=== PATIENT | female | born 1975 | race Caucasian/White ===

== ENCOUNTER 2017-07-20 16:30 | Inpatient (IN) | payer OTHER ==
[2017-07-20] MEDS ORDERED: methylPREDNISolone SOD SUCCI 125 MG/2 ML VIAL IV STA (16:34)
[2017-07-20] MEDS ORDERED: IPRATROPIUM 0.5 MG/2.5 ML NEBU INHALATION STA (16:34)
[2017-07-20] MEDS ORDERED: SODIUM CHLORIDE 0.9% 500 ML IV STA (16:34)
[2017-07-20] MEDS ORDERED: SODIUM CHLORIDE 0.9% 1,000 ML IV STA (16:34)
[2017-07-20] MEDS ORDERED: ALBUTEROL NEBULIZED 2.5 MG/3 ML INHALATION STA (16:34)
[2017-07-20] MEDS ORDERED: ACETAMINOPHEN IV (For NPO) 1,000 MG in EMPTY BAG 1 BAG IVPB STA (16:47)
[2017-07-20] MEDS ORDERED: AZITHROMYCIN 500 MG in SODIUM CHLORIDE 0.9% 250 ML IVPB STA (16:47)
[2017-07-20 17:06] LABS: Basophils # (A) 0.1 k/uL (0-0.2); Basophils % (A) 1 %; Eosinophils # (A) 0.2 k/uL (0-0.7); Eosinophils % (A) 2 %; HCT 44.9 % (34.0-46.0); HGB 14.5 gm/dL (11.4-16.0); Lymphocytes % (A) 19 %; MCH 28.4 pg (25.0-35.0); MCHC 32.2 g/dL (31.0-37.0); Mean Platelet Volume 7.3; Monocytes # (A) 0.6 k/uL (0-1.0); Monocytes % (A) 6 %; Neutrophils # (A) 7.5 k/uL (1.3-7.7); Neutrophils % (A) 72 %; Platelet Count 298 k/uL (150-450); RBC 5.11 m/uL (3.80-5.40); RDW 14.6 % (11.5-15.5); WBC 10.5 k/uL (3.8-10.6)
[2017-07-20 17:14] LABS: Partial Thromboplastin Time 23.3 sec (22.0-30.0); Prothrombin Time 9.6 sec (9.0-12.0)
[2017-07-20 17:16] LABS: ALT 38 U/L (9-52); AST 38 U/L (14-36); Albumin 3.6 g/dL (3.5-5.0); Alkaline Phosphatase 117 U/L (38-126); Anion Gap 13 mmol/L; Blood Urea Nitrogen 6 mg/dL (7-17); Carbon Dioxide 24 mmol/L (22-30); Chloride 103 mmol/L (98-107); Glucose 153 mg/dL (74-99); Potassium 3.9 mmol/L (3.5-5.1); Sodium 140 mmol/L (137-145); Total Bilirubin 0.4 mg/dL (0.2-1.3); Total Protein 6.4 g/dL (6.3-8.2)
[2017-07-20 17:36] LABS: Creatine Kinase 60 U/L (30-135)
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
[2017-07-20 17:49] LABS: Creatine Kinase MB <0.2 ng/mL (0.0-2.4); Troponin I <0.012 ng/mL (0.000-0.034)
--- NOTE | 2017-07-20 18:04 | XR ---
EXAMINATION TYPE: XR chest 2V DATE OF EXAM: 07/20/2017 COMPARISON: 05/02/2017 HISTORY: Difficulty breathing TECHNIQUE: Frontal and lateral views of the chest are obtained. FINDINGS: There is coarsening of interstitial pulmonary markings. Heart is enlarged. There is mild p ulmonary vascular congestion. I see no pulmonary consolidation. Bony thorax appears intact. IMPRESSION: Mild cardiomegaly. There is new pulmonary congestion compared to old exam and suggestive of mild heart failure. No definite pulmonary consolidation.
[2017-07-20] MEDS ORDERED: PNEUMONIA PROTOCOL UTILIZED 1 EACH MISC PO PRN (18:41)
[2017-07-20] MEDS ORDERED: cefTRIAXone IN SWFI 1,000 MG/10 ML SYRINGE IVP STA (18:41)
[2017-07-20] MEDS ORDERED: FUROSEMIDE 10 MG/ML 4 ML VIAL IV SCH (18:45)
[2017-07-20] MEDS ORDERED: oxyCODONE-APAP 7.5-325MG 1 EACH TAB PO STA (19:00)
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
[2017-07-20] MEDS ORDERED: AZITHROMYCIN 500 MG TAB PO STA (20:00)
[2017-07-20 20:22] LABS: Appearance,Urine Clear (Clear); Bilirubin,Urine Negative (Negative); Blood,Urine Negative (Negative); Color,Urine Yellow; Glucose,Urine (UA) Negative (Negative); Ketones,Urine Negative (Negative); Leukocyte Esterase,Urine Negative (Negative); Protein,Urine Negative (Negative); Specific Gravity,Urine 1.008 (1.001-1.035); Urobilinogen,Urine <2.0 mg/dL (<2.0)
[2017-07-20] MEDS: IPRATROPIUM-ALBUTEROL 3 ML NEB INHALATION SCH (20:32)
[2017-07-20 21:13] LABS: Glucose,Whole Blood 265 mg/dL (75-99)
[2017-07-20] MEDS ORDERED: NALOXONE 0.4 MG/ML 1 ML VIAL IV PRN (21:28)
[2017-07-20] MEDS: QUEtiapine 200 MG TAB PO SCH (23:08)
[2017-07-20] MEDS: ATORVASTATIN 40 MG TAB PO SCH (23:08)
[2017-07-20] MEDS: MONTELUKAST 10 MG TAB PO SCH (23:09)
[2017-07-20] MEDS: DIVALPROEX ER 500 MG TAB.ER.24H PO SCH (23:09)
[2017-07-20] MEDS: HEPARIN SODIUM,PORCINE 5,000 UNIT/ML 1 ML VIAL SQ SCH (23:09)
[2017-07-20] MEDS: TOPIRAMATE 100 MG TAB PO SCH (23:09)
[2017-07-21] MEDS ORDERED: Potassium Replacement Protocol 1 EACH MISC MISCELLANE PRN (00:41)
[2017-07-21] MEDS ORDERED: IPRATROPIUM-ALBUTEROL 3 ML NEB INHALATION PRN (00:42)
[2017-07-21] MEDS ORDERED: POTASSIUM CHLORIDE ER 20 MEQ TAB.ER PO SCH (01:00)
[2017-07-21 05:46] LABS: Basophils % (A) 0 %; Eosinophils % (A) 0 %; HCT 42.4 % (34.0-46.0); HGB 13.3 gm/dL (11.4-16.0); Hypochromasia Slight; Lymphocytes # (A) 1.2 k/uL (1.0-4.8); Lymphocytes % (A) 13 %; MCH 28.2 pg (25.0-35.0); MCHC 31.4 g/dL (31.0-37.0); MCV 89.8 fL (80.0-100.0); Mean Platelet Volume 7.4; Monocytes # (A) 0.4 k/uL (0-1.0); Monocytes % (A) 5 %; Neutrophils # (A) 8.1 k/uL (1.3-7.7); Neutrophils % (A) 82 %; Platelet Count 275 k/uL (150-450); RBC 4.72 m/uL (3.80-5.40); RDW 14.5 % (11.5-15.5); WBC 9.9 k/uL (3.8-10.6)
[2017-07-21] MEDS: IPRATROPIUM-ALBUTEROL 3 ML NEB INHALATION SCH ×4 (05:54→20:18)
[2017-07-21] MEDS: SYMBICORT 160-4.5 MCG INHALER INHALATION SCH ×2 (05:54→20:18)
[2017-07-21 06:01] LABS: Blood Urea Nitrogen 10 mg/dL (7-17); Calcium 8.5 mg/dL (8.4-10.2); Carbon Dioxide 26 mmol/L (22-30); Glucose 300 mg/dL (74-99); Potassium 4.6 mmol/L (3.5-5.1); Sodium 140 mmol/L (137-145)
[2017-07-21 06:14] LABS: Anion Gap 8 mmol/L; Chloride 106 mmol/L (98-107)
[2017-07-21 06:29] LABS: Glucose,Whole Blood 297 mg/dL (75-99)
[2017-07-21] MEDS: INSULIN ASPART 100 UNIT/ML 1 ML 10 ML VIAL SQ SCH ×4 (06:51→21:16)
[2017-07-21] MEDS ORDERED: PANTOPRAZOLE 40 MG TABLET PO SCH (07:30)
[2017-07-21] MEDS: HEPARIN SODIUM,PORCINE 5,000 UNIT/ML 1 ML VIAL SQ SCH ×3 (08:18→23:27)
[2017-07-21] MEDS: DULoxetine HCL 60 MG CAPSULE.DR PO SCH (08:19)
[2017-07-21] MEDS: PANTOPRAZOLE 40 MG TABLET PO SCH ×2 (08:19→20:11)
[2017-07-21] MEDS: PREGABALIN 75 MG CAP PO SCH ×2 (08:20→21:16)
[2017-07-21] MEDS ORDERED: TOPIRAMATE 100 MG TAB PO SCH (09:00)
[2017-07-21] MEDS ORDERED: FUROSEMIDE 10 MG/ML 4 ML VIAL IV SCH (09:00)
[2017-07-21] MEDS: DIVALPROEX ER 500 MG TAB.ER.24H PO SCH ×3 (09:18→21:47)
[2017-07-21] MEDS: TOPIRAMATE 100 MG TAB PO SCH ×2 (09:19→20:12)
--- NOTE | 2017-07-21 10:21 | XR ---
EXAMINATION TYPE: XR chest 2V DATE OF EXAM: 07/21/2017 COMPARISON: Prior chest x-ray 07/20/2017 HISTORY: Pneumonia TECHNIQUE: Frontal and lateral views of the chest are obtained. FINDINGS: Some increased attenuation is questioned at the right lung base. No pneumothorax or pleura l effusion. There are overlying cardiac leads. Postop change noted in the cervical spine. Suspect imp rovement in the central vascularity, heart size. IMPRESSION: Improvement in volume status, aeration. Possible right lower lobe pneumonia.
[2017-07-21 10:34] VITALS: BMI 54.0
[2017-07-21] MEDS: oxyCODONE-APAP 5-325MG 1 EACH TAB PO PRN ×2 (11:15→20:12)
--- NOTE | 2017-07-21 11:54 | ECHOF ---
Referral Reason:Heart Failure MEASUREMENTS -------- HEIGHT: 160.0 cm WEIGHT: 138.3 kg BP: IVSd: 1.1 cm (0.6 - 1.1) LVIDd: 5.1 cm (3.9 - 5.3) LVPWd: 1.0 cm (0.6 - 1.1) IVSs: 1.3 cm LVIDs: 3.1 cm LVPWs: 1.5 cm LA Diam: 3.5 cm (2.7 - 3.8) Ao Diam: 3.2 cm (2.0 - 3.7) AV Cusp: 2.0 cm (1.5 - 2.6) LA Diam: 3.7 cm (2.7 - 3.8) MV EXCURSION: 16.399 mm (> 18.000) MV EF SLOPE: 109 mm/s (70 - 150) EPSS: 0.6 cm MV E Marques: 0.72 m/s MV DecT: 235 ms MV A Marques: 0.77 m/s MV E/A Ratio: 0.94 RAP: 5.00 mmHg RVSP: 14.41 mmHg FINDINGS -------- Sinus rhythm. Morbid Obesity LV size, wall thickness and systolic function are normal, with an EF greater than 55%. The left shaniqua tricular size is normal. The right ventricle is normal in size. Normal LA size by volume 22+/-6 ml/m2. The right atrial size is normal. 5.0mg OF Lumason UTLIZED: 2 OR MORE WALL SEGMENTS NOT VISUALIZED. The aortic valve is trileaflet, and appears structurally normal. No aortic stenosis or regurgitation. Mild mitral regurgitation is present. Mild tricuspid regurgitation present. There is no evidence of pulmonary hypertension. The right v entricular systolic pressure, as measured by Doppler, is 14.41mmHg. The pulmonic valve was not well visualized. The aortic root size is normal. There is no pericardial effusion. CONCLUSIONS -------- 1. Morbid Obesity 2. LV size, wall thickness and systolic function are normal, with an EF greater than 55%. 3. The left ventricular size is normal. 4. 5.0mg OF Lumason UTLIZED: 2 OR MORE WALL SEGMENTS NOT VISUALIZED. 5. The aortic valve is trileaflet, and appears structurally normal. No aortic stenosis or regurgitati on. 6. Mild mitral regurgitation is present. 7. Mild tricuspid regurgitation present. 8. There is no evidence of pulmonary hypertension. 9. The right ventricular systolic pressure, as measured by Doppler, is 14.41mmHg. 10. The pulmonic valve was not well visualized. 11. The aortic root size is normal. 12. There is no pericardial effusion. ROVING SIZER: Mana Geronimo RDCS
[2017-07-21] MEDS ORDERED: AZITHROMYCIN 500 MG TAB PO SCH (12:00)
[2017-07-21] MEDS ORDERED: cefTRIAXone IN SWFI 1,000 MG/10 ML SYRINGE IVP SCH (12:00)
[2017-07-21 12:18] LABS: Glucose,Whole Blood 251 mg/dL (75-99)
--- NOTE | 2017-07-21 13:23 | P.PN ---
Subjective Progress Note Date: 07/21/17 The patient does not feel significantly better today, still short of breath denies any chest pain, no acute events overnight patient afebrile Objective - Vital Signs Vital signs: Vital Signs Temp 97.0 F L 07/21/17 08:00 Pulse 92 07/21/17 11:37 Resp 18 07/21/17 08:00 BP 101/53 07/21/17 08:00 Pulse Ox 96 07/21/17 08:00 Intake & Output 07/20/17 07/21/17 07/21/17 18:59 06:59 18:59 Intake Total 800 237 Balance 800 237 Weight 141.067 kg 138.4 kg 138.4 kg Intake: Amount of Fluid Infused ( 600 ml) Oral 200 237 Other: Voiding Method Toilet # Voids 1 - Exam Constitutional: No acute distress, conversant, pleasant Eyes: Anicteric sclerae, moist conjunctiva, no lid-lag, PERRLA ENMT: NC/AT,Oropharynx clear, no erythema, exudates Neck:Supple, FROM, no masses, or JVD, No carotid bruits; No thyromegaly Lungs: Coarse with some expiratory wheezes, Clear to percussion, Normal respiratory effort, no accessory muscle use Cardiovascular: Heart regular in rate and rhythm, No murmurs, gallops, or rubs no peripheral edema Abdominal: Soft Nontender, nom distended, no guarding, no rebound or rigidity, Normoactive bowel sounds No hepatomegaly, No splenomegaly, No palpable mass No abdominal wall hernia noted Skin: Normal temperature, tone, texture, turgor, No induration No subcutaneous nodules, No rash, lesions, No ulcers Extremities:No digital cyanosis No clubbing, Pedal pulses intact and symmetrical Radial pulses intact and symmetrical Normal gait and station, No calf tenderness Psychiatric: Alert and oriented to person, place and time, Appropriate affect Intact judgement Neuro: Muscles Strength 5/5 in all 4 extremities, Sensation to light touch grossly present throughout, Cranial nerves II-XII grossly intact. No focal sensory deficits - Labs CBC & Chem 7: 07/21/17 05:26 07/21/17 05:26 Labs: Abnormal Lab Results - Last 24 Hours (Table) 07/20/17 07/20/17 07/21/17 Range/Units 16:50 21:12 05:26 Neutrophils # 8.1 H (1.3-7.7) k/uL BUN 6 L (7-17) mg/dL Glucose 153 H (74-99) mg/dL POC Glucose (mg/dL) 265 H (75-99) mg/dL AST 38 H (14-36) U/L 07/21/17 07/21/17 07/21/17 Range/Units 05:26 06:06 12:10 Neutrophils # (1.3-7.7) k/uL BUN (7-17) mg/dL Glucose 300 H (74-99) mg/dL POC Glucose (mg/dL) 297 H 251 H (75-99) mg/dL AST (14-36) U/L Microbiology - Last 24 Hours (Table) 07/20/17 20:00 Urine Culture - Preliminary Urine,Clean Catch Assessment and Plan (1) Acute respiratory failure with hypoxia Narrative/Plan: * Multifactorial etiology secondary to COPD exacerbation triggered by a community acquired pneumonia in the right lower lobe * Chest x-ray suggesting right lower lobe pneumonia, patient with good oxygen saturations on 3 L nasal cannula * Continue with breathing treatments and antibiotics * BNP within normal range, and echocardiogram suggestive of any CHF, shows normal preserved ejection fraction Current Visit: Yes Status: Acute Code(s): J96.01 - ACUTE RESPIRATORY FAILURE WITH HYPOXIA SNOMED Code(s): 53253114 (2) Acute exacerbation of chronic obstructive airways disease Narrative/Plan: * Triggered by a right lower lobe pneumonia. * We'll continue systemic steroids with prednisone, patient was initiated on Solu-Medrol from the ER * Continue with when necessary as needed breathing treatments Current Visit: Yes Status: Acute Code(s): J44.1 - CHRONIC OBSTRUCTIVE PULMONARY DISEASE W (ACUTE) EXACERBATION SNOMED Code(s): 983526369 (3) Community acquired pneumonia Narrative/Plan: * We'll switch patient to oral Levaquin for antibiotic coverage Current Visit: Yes Status: Acute Code(s): J18.9 - PNEUMONIA, UNSPECIFIED ORGANISM SNOMED Code(s): 421206107 (4) Sepsis Narrative/Plan: * Secondary to pneumonia patient afebrile without leukocytosis Current Visit: Yes Status: Acute Code(s): A41.9 - SEPSIS, UNSPECIFIED ORGANISM SNOMED Code(s): 87071912 (5) Type 2 diabetes mellitus Narrative/Plan: * Blood sugars elevated a patient does have a recent diagnosis of type 2 diabetes A1c is pending * Continue with correctional scale coverage as a patient is also on steroids Current Visit: Yes Status: Acute Code(s): E11.9 - TYPE 2 DIABETES MELLITUS WITHOUT COMPLICATIONS SNOMED Code(s): 70843797
[2017-07-21 14:03] LABS: Hemoglobin A1C 7.9 % (4.0-6.0)
[2017-07-21] MEDS: predniSONE 20 MG TAB PO SCH (14:30)
[2017-07-21] MEDS: LEVOFLOXACIN 750 MG TAB PO SCH (14:30)
[2017-07-21 17:04] LABS: Glucose,Whole Blood 208 mg/dL (75-99)
[2017-07-21] MEDS: ATORVASTATIN 40 MG TAB PO SCH (20:11)
[2017-07-21] MEDS: MONTELUKAST 10 MG TAB PO SCH (20:11)
[2017-07-21] MEDS: QUEtiapine 200 MG TAB PO SCH (20:12)
[2017-07-21 20:48] LABS: Glucose,Whole Blood 299 mg/dL (75-99)
[2017-07-21] MEDS ORDERED: QUEtiapine 200 MG TAB PO SCH (21:00)
[2017-07-21] MEDS ORDERED: ATORVASTATIN 40 MG TAB PO SCH (21:00)
[2017-07-21] MEDS ORDERED: MONTELUKAST 10 MG TAB PO SCH (21:00)
[2017-07-22 06:02] LABS: Basophils % (A) 0 %; Eosinophils % (A) 0 %; HCT 40.4 % (34.0-46.0); HGB 12.6 gm/dL (11.4-16.0); Hypochromasia Slight; Lymphocytes # (A) 1.4 k/uL (1.0-4.8); Lymphocytes % (A) 18 %; MCH 28.2 pg (25.0-35.0); MCHC 31.1 g/dL (31.0-37.0); MCV 90.4 fL (80.0-100.0); Mean Platelet Volume 7.3; Monocytes # (A) 0.4 k/uL (0-1.0); Monocytes % (A) 5 %; Neutrophils # (A) 6.1 k/uL (1.3-7.7); Neutrophils % (A) 75 %; Platelet Count 279 k/uL (150-450); RBC 4.47 m/uL (3.80-5.40); RDW 14.6 % (11.5-15.5); WBC 8.1 k/uL (3.8-10.6)
[2017-07-22 06:13] LABS: Glucose,Whole Blood 215 mg/dL (75-99)
[2017-07-22 06:21] LABS: Anion Gap 9 mmol/L; Blood Urea Nitrogen 9 mg/dL (7-17); Calcium 8.7 mg/dL (8.4-10.2); Carbon Dioxide 24 mmol/L (22-30); Chloride 110 mmol/L (98-107); Glucose 239 mg/dL (74-99); Potassium 4.7 mmol/L (3.5-5.1); Sodium 143 mmol/L (137-145)
[2017-07-22] MEDS: INSULIN ASPART 100 UNIT/ML 1 ML 10 ML VIAL SQ SCH ×4 (06:59→21:08)
[2017-07-22] MEDS: IPRATROPIUM-ALBUTEROL 3 ML NEB INHALATION SCH ×4 (07:05→19:34)
[2017-07-22] MEDS: SYMBICORT 160-4.5 MCG INHALER INHALATION SCH ×2 (07:05→19:34)
[2017-07-22] MEDS: DIVALPROEX ER 500 MG TAB.ER.24H PO SCH ×3 (08:38→21:08)
[2017-07-22] MEDS: HEPARIN SODIUM,PORCINE 5,000 UNIT/ML 1 ML VIAL SQ SCH ×3 (08:38→22:46)
[2017-07-22] MEDS: TOPIRAMATE 100 MG TAB PO SCH ×2 (08:39→20:09)
[2017-07-22] MEDS: DULoxetine HCL 60 MG CAPSULE.DR PO SCH (08:39)
[2017-07-22] MEDS: predniSONE 20 MG TAB PO SCH (08:39)
[2017-07-22] MEDS: PANTOPRAZOLE 40 MG TABLET PO SCH ×2 (08:39→20:09)
[2017-07-22] MEDS: PREGABALIN 75 MG CAP PO SCH ×2 (08:45→20:09)
[2017-07-22] MEDS: DOCUSATE 100 MG CAP PO PRN (08:45)
[2017-07-22] MEDS: oxyCODONE-APAP 5-325MG 1 EACH TAB PO PRN ×3 (08:46→22:45)
--- NOTE | 2017-07-22 10:50 | P.PN ---
Subjective The patient does not feel significantly better today, still short of breath denies any chest pain, no acute events overnight patient afebrile Objective - Vital Signs Vital signs: Vital Signs Temp 97 F L 07/22/17 08:33 Pulse 88 07/22/17 09:12 Resp 16 07/22/17 08:33 BP 119/75 07/22/17 08:33 Pulse Ox 94 L 07/22/17 08:33 Intake & Output 07/21/17 07/22/17 07/22/17 18:59 06:59 18:59 Intake Total 1211 480 120 Balance 1211 480 120 Weight 138.4 kg Intake: Oral 1211 480 120 Other: Voiding Method Toilet # Voids 3 1 - Exam Constitutional: No acute distress, conversant, pleasant Eyes: Anicteric sclerae, moist conjunctiva, no lid-lag, PERRLA ENMT: NC/AT,Oropharynx clear, no erythema, exudates Neck:Supple, FROM, no masses, or JVD, No carotid bruits; No thyromegaly Lungs: Coarse with some expiratory wheezes, Clear to percussion, Normal respiratory effort, no accessory muscle use Cardiovascular: Heart regular in rate and rhythm, No murmurs, gallops, or rubs no peripheral edema Abdominal: Soft Nontender, nom distended, no guarding, no rebound or rigidity, Normoactive bowel sounds No hepatomegaly, No splenomegaly, No palpable mass No abdominal wall hernia noted Skin: Normal temperature, tone, texture, turgor, No induration No subcutaneous nodules, No rash, lesions, No ulcers Extremities:No digital cyanosis No clubbing, Pedal pulses intact and symmetrical Radial pulses intact and symmetrical Normal gait and station, No calf tenderness Psychiatric: Alert and oriented to person, place and time, Appropriate affect Intact judgement Neuro: Muscles Strength 5/5 in all 4 extremities, Sensation to light touch grossly present throughout, Cranial nerves II-XII grossly intact. No focal sensory deficits - Labs CBC & Chem 7: 07/22/17 05:28 07/22/17 05:28 Labs: Abnormal Lab Results - Last 24 Hours (Table) 07/20/17 07/21/17 07/21/17 Range/Units 22:39 12:10 16:52 Chloride (98-107) mmol/L Creatinine (0.52-1.04) mg/dL Glucose (74-99) mg/dL POC Glucose (mg/dL) 251 H 208 H (75-99) mg/dL Hemoglobin A1c 7.9 H (4.0-6.0) % 07/21/17 07/22/17 07/22/17 Range/Units 20:43 05:28 06:12 Chloride 110 H (98-107) mmol/L Creatinine 0.50 L (0.52-1.04) mg/dL Glucose 239 H (74-99) mg/dL POC Glucose (mg/dL) 299 H 215 H (75-99) mg/dL Hemoglobin A1c (4.0-6.0) % Microbiology - Last 24 Hours (Table) 07/20/17 20:00 Urine Culture - Final Urine,Clean Catch 07/20/17 16:50 Blood Culture - Preliminary Blood No Growth after 24 hours Assessment and Plan (1) Acute respiratory failure with hypoxia Narrative/Plan: * Multifactorial etiology secondary to COPD exacerbation triggered by a community acquired pneumonia in the right lower lobe * Chest x-ray suggesting right lower lobe pneumonia, patient with good oxygen saturations on 3 L nasal cannula * Continue with breathing treatments and antibiotics * BNP within normal range, and echocardiogram suggestive of any CHF, shows normal preserved ejection fraction Current Visit: Yes Status: Acute Code(s): J96.01 - ACUTE RESPIRATORY FAILURE WITH HYPOXIA SNOMED Code(s): 70626826 (2) Acute exacerbation of chronic obstructive airways disease Narrative/Plan: * Triggered by a right lower lobe pneumonia. * Patient not significantly clinically improved today continue with current therapy * Continue the patient on steroids with prednisone 60 mg by mouth daily, continue with scheduled and when necessary bronchodilator breathing treatments Current Visit: Yes Status: Acute Code(s): J44.1 - CHRONIC OBSTRUCTIVE PULMONARY DISEASE W (ACUTE) EXACERBATION SNOMED Code(s): 541919420 (3) Community acquired pneumonia Narrative/Plan: * We'll switch patient to oral Levaquin for antibiotic coverage Current Visit: Yes Status: Acute Code(s): J18.9 - PNEUMONIA, UNSPECIFIED ORGANISM SNOMED Code(s): 891848277 (4) Sepsis Narrative/Plan: * Secondary to pneumonia patient afebrile without leukocytosis Current Visit: Yes Status: Acute Code(s): A41.9 - SEPSIS, UNSPECIFIED ORGANISM SNOMED Code(s): 09697952 (5) Type 2 diabetes mellitus Narrative/Plan: * Blood sugars elevated a patient does have a recent diagnosis of type 2 diabetes A1c is 7.9 * Continue with correctional scale coverage as a patient is also on steroids Current Visit: Yes Status: Acute Code(s): E11.9 - TYPE 2 DIABETES MELLITUS WITHOUT COMPLICATIONS SNOMED Code(s): 61994520
[2017-07-22] MEDS: LEVOFLOXACIN 750 MG TAB PO SCH (11:23)
[2017-07-22 11:44] LABS: Glucose,Whole Blood 238 mg/dL (75-99)
[2017-07-22 16:45] LABS: Glucose,Whole Blood 267 mg/dL (75-99)
[2017-07-22] MEDS: IBUPROFEN 800 MG TAB PO PRN (17:19)
[2017-07-22] MEDS: ATORVASTATIN 40 MG TAB PO SCH (20:08)
[2017-07-22] MEDS: MONTELUKAST 10 MG TAB PO SCH (20:08)
[2017-07-22] MEDS: QUEtiapine 200 MG TAB PO SCH (20:09)
[2017-07-22 20:55] LABS: Glucose,Whole Blood 322 mg/dL (75-99)
[2017-07-23 06:16] LABS: Glucose,Whole Blood 192 mg/dL (75-99)
[2017-07-23] MEDS: INSULIN ASPART 100 UNIT/ML 1 ML 10 ML VIAL SQ SCH ×4 (06:34→21:15)
[2017-07-23] MEDS: IPRATROPIUM-ALBUTEROL 3 ML NEB INHALATION SCH ×4 (07:24→19:21)
[2017-07-23] MEDS: SYMBICORT 160-4.5 MCG INHALER INHALATION SCH (07:24)
[2017-07-23] MEDS: HEPARIN SODIUM,PORCINE 5,000 UNIT/ML 1 ML VIAL SQ SCH ×3 (07:51→22:54)
[2017-07-23] MEDS: predniSONE 20 MG TAB PO SCH (07:51)
[2017-07-23] MEDS: PANTOPRAZOLE 40 MG TABLET PO SCH ×2 (07:51→20:24)
[2017-07-23] MEDS: DULoxetine HCL 60 MG CAPSULE.DR PO SCH (07:52)
[2017-07-23] MEDS: DIVALPROEX ER 500 MG TAB.ER.24H PO SCH ×3 (07:52→21:14)
[2017-07-23] MEDS: TOPIRAMATE 100 MG TAB PO SCH ×2 (07:52→20:25)
[2017-07-23] MEDS: oxyCODONE-APAP 5-325MG 1 EACH TAB PO PRN ×3 (07:52→21:14)
[2017-07-23] MEDS: PREGABALIN 75 MG CAP PO SCH ×2 (07:54→20:24)
[2017-07-23] MEDS: LEVOFLOXACIN 750 MG TAB PO SCH (12:11)
[2017-07-23] MEDS: IBUPROFEN 800 MG TAB PO PRN ×2 (12:15→17:10)
[2017-07-23 12:46] LABS: Glucose,Whole Blood 242 mg/dL (75-99)
--- NOTE | 2017-07-23 14:28 | P.PN ---
Subjective Progress Note Date: 07/23/17 The patient does not feel significantly better today, still short of breath denies any chest pain, no acute events overnight patient afebrile Objective - Vital Signs Vital signs: Vital Signs Temp 97.1 F L 07/23/17 12:00 Pulse 83 07/23/17 12:00 Resp 18 07/23/17 12:00 BP 136/78 07/23/17 12:00 Pulse Ox 96 07/23/17 12:00 Intake & Output 07/22/17 07/23/17 07/23/17 18:59 06:59 18:59 Intake Total 560 300 Balance 560 300 Weight 140 kg Intake: Oral 560 300 Other: Voiding Method Toilet Toilet # Voids 1 2 - Exam Constitutional: No acute distress, conversant, pleasant Eyes: Anicteric sclerae, moist conjunctiva, no lid-lag, PERRLA ENMT: NC/AT,Oropharynx clear, no erythema, exudates Neck:Supple, FROM, no masses, or JVD, No carotid bruits; No thyromegaly Lungs: Coarse with some expiratory wheezes, Clear to percussion, Normal respiratory effort, no accessory muscle use Cardiovascular: Heart regular in rate and rhythm, No murmurs, gallops, or rubs no peripheral edema Abdominal: Soft Nontender, nom distended, no guarding, no rebound or rigidity, Normoactive bowel sounds No hepatomegaly, No splenomegaly, No palpable mass No abdominal wall hernia noted Skin: Normal temperature, tone, texture, turgor, No induration No subcutaneous nodules, No rash, lesions, No ulcers Extremities:No digital cyanosis No clubbing, Pedal pulses intact and symmetrical Radial pulses intact and symmetrical Normal gait and station, No calf tenderness Psychiatric: Alert and oriented to person, place and time, Appropriate affect Intact judgement Neuro: Muscles Strength 5/5 in all 4 extremities, Sensation to light touch grossly present throughout, Cranial nerves II-XII grossly intact. No focal sensory deficits - Labs CBC & Chem 7: 07/22/17 05:28 07/22/17 05:28 Labs: Abnormal Lab Results - Last 24 Hours (Table) 07/22/17 07/22/17 07/23/17 Range/Units 16:44 20:53 06:12 POC Glucose (mg/dL) 267 H 322 H 192 H (75-99) mg/dL 07/23/17 Range/Units 11:52 POC Glucose (mg/dL) 242 H (75-99) mg/dL Microbiology - Last 24 Hours (Table) 07/20/17 16:50 Blood Culture - Preliminary Blood No Growth after 48 hours Assessment and Plan (1) Acute respiratory failure with hypoxia Narrative/Plan: * Multifactorial etiology secondary to COPD exacerbation triggered by a community acquired pneumonia in the right lower lobe * Chest x-ray suggesting right lower lobe pneumonia, patient with good oxygen saturations on 3 L nasal cannula * Continue with breathing treatments and antibiotics * BNP within normal range, and echocardiogram suggestive of any CHF, shows normal preserved ejection fraction Current Visit: Yes Status: Acute Code(s): J96.01 - ACUTE RESPIRATORY FAILURE WITH HYPOXIA SNOMED Code(s): 49583272 (2) Acute exacerbation of chronic obstructive airways disease Narrative/Plan: * Triggered by a right lower lobe pneumonia. * Patient not significantly clinically improved today continue with current therapy but will add formoterol and budesonide inhaled * Continue the patient on steroids with prednisone 60 mg by mouth daily, continue with scheduled and when necessary bronchodilator breathing treatments * The patient is not improved by tomorrow, consult pulmonary for further recommendations Current Visit: Yes Status: Acute Code(s): J44.1 - CHRONIC OBSTRUCTIVE PULMONARY DISEASE W (ACUTE) EXACERBATION SNOMED Code(s): 036572044 (3) Community acquired pneumonia Narrative/Plan: * We'll switch patient to oral Levaquin for antibiotic coverage Current Visit: Yes Status: Acute Code(s): J18.9 - PNEUMONIA, UNSPECIFIED ORGANISM SNOMED Code(s): 556036215 (4) Sepsis Narrative/Plan: * Secondary to pneumonia patient afebrile without leukocytosis Current Visit: Yes Status: Resolved Code(s): A41.9 - SEPSIS, UNSPECIFIED ORGANISM SNOMED Code(s): 62327732 (5) Type 2 diabetes mellitus Narrative/Plan: * patient does have a recent diagnosis of type 2 diabetes A1c is 7.9 * Blood sugars elevated we'll initiate long-acting coverage as well with Levemir 12 units daily at bedtime * Continue with correctional scale coverage as a patient is also on steroids Current Visit: Yes Status: Acute Code(s): E11.9 - TYPE 2 DIABETES MELLITUS WITHOUT COMPLICATIONS SNOMED Code(s): 76385619
[2017-07-23 17:36] LABS: Glucose,Whole Blood 296 mg/dL (75-99)
[2017-07-23] MEDS: FORMOTEROL FUMARATE 20 MCG/2 ML NEBU INHALATION SCH (19:21)
[2017-07-23] MEDS: BUDESONIDE 1 MG/2 ML NEBU INHALATION SCH (19:21)
[2017-07-23] MEDS: QUEtiapine 200 MG TAB PO SCH (20:24)
[2017-07-23] MEDS: MONTELUKAST 10 MG TAB PO SCH (20:24)
[2017-07-23] MEDS: ATORVASTATIN 40 MG TAB PO SCH (20:24)
[2017-07-23] MEDS: DOCUSATE 100 MG CAP PO PRN (20:28)
[2017-07-23] MEDS: INSULIN DETEMIR 100 UNIT/ML 10 ML VIAL SQ SCH (21:15)
[2017-07-23 21:19] LABS: Glucose,Whole Blood 256 mg/dL (75-99)
[2017-07-24] MEDS: oxyCODONE-APAP 5-325MG 1 EACH TAB PO PRN ×5 (01:37→20:45)
[2017-07-24] MEDS: IPRATROPIUM-ALBUTEROL 3 ML NEB INHALATION SCH ×4 (06:04→19:59)
[2017-07-24 06:35] LABS: Glucose,Whole Blood 132 mg/dL (75-99)
[2017-07-24] MEDS: INSULIN ASPART 100 UNIT/ML 1 ML 10 ML VIAL SQ SCH ×4 (06:45→21:56)
[2017-07-24] MEDS: FORMOTEROL FUMARATE 20 MCG/2 ML NEBU INHALATION SCH ×2 (07:49→20:16)
[2017-07-24] MEDS: BUDESONIDE 1 MG/2 ML NEBU INHALATION SCH ×2 (07:49→19:59)
[2017-07-24] MEDS: DIVALPROEX ER 500 MG TAB.ER.24H PO SCH ×3 (08:11→20:44)
[2017-07-24] MEDS: HEPARIN SODIUM,PORCINE 5,000 UNIT/ML 1 ML VIAL SQ SCH ×3 (08:11→23:01)
[2017-07-24] MEDS: DULoxetine HCL 60 MG CAPSULE.DR PO SCH (08:12)
[2017-07-24] MEDS: PANTOPRAZOLE 40 MG TABLET PO SCH ×2 (08:12→20:43)
[2017-07-24] MEDS: TOPIRAMATE 100 MG TAB PO SCH ×2 (08:12→20:44)
[2017-07-24] MEDS: predniSONE 20 MG TAB PO SCH (08:12)
[2017-07-24] MEDS: LEVOFLOXACIN 750 MG TAB PO SCH (08:12)
[2017-07-24] MEDS: PREGABALIN 75 MG CAP PO SCH ×2 (08:24→20:43)
[2017-07-24 11:45] LABS: Glucose,Whole Blood 260 mg/dL (75-99)
[2017-07-24] MEDS: IBUPROFEN 800 MG TAB PO PRN ×3 (11:54→20:46)
[2017-07-24 16:40] LABS: Glucose,Whole Blood 238 mg/dL (75-99)
[2017-07-24] MEDS: QUEtiapine 200 MG TAB PO SCH (20:43)
[2017-07-24] MEDS: ATORVASTATIN 40 MG TAB PO SCH (20:43)
[2017-07-24 20:59] LABS: Glucose,Whole Blood 155 mg/dL (75-99)
[2017-07-24] MEDS: INSULIN DETEMIR 100 UNIT/ML 10 ML VIAL SQ SCH (21:56)
[2017-07-24] MEDS: MONTELUKAST 10 MG TAB PO SCH (21:57)
[2017-07-25 06:03] LABS: Glucose,Whole Blood 129 mg/dL (75-99)
[2017-07-25] MEDS: INSULIN ASPART 100 UNIT/ML 1 ML 10 ML VIAL SQ SCH ×4 (06:05→21:46)
[2017-07-25] MEDS: BUDESONIDE 1 MG/2 ML NEBU INHALATION SCH ×2 (08:08→21:45)
[2017-07-25] MEDS: IPRATROPIUM-ALBUTEROL 3 ML NEB INHALATION SCH ×4 (08:08→21:45)
[2017-07-25] MEDS: FORMOTEROL FUMARATE 20 MCG/2 ML NEBU INHALATION SCH ×2 (08:08→21:45)
[2017-07-25] MEDS: HEPARIN SODIUM,PORCINE 5,000 UNIT/ML 1 ML VIAL SQ SCH ×3 (09:03→23:14)
[2017-07-25] MEDS: LEVOFLOXACIN 750 MG TAB PO SCH (09:03)
[2017-07-25] MEDS: DIVALPROEX ER 500 MG TAB.ER.24H PO SCH ×3 (09:04→21:46)
[2017-07-25] MEDS: PANTOPRAZOLE 40 MG TABLET PO SCH ×2 (09:04→21:46)
[2017-07-25] MEDS: predniSONE 20 MG TAB PO SCH (09:04)
[2017-07-25] MEDS: TOPIRAMATE 100 MG TAB PO SCH ×2 (09:04→21:46)
[2017-07-25] MEDS: DULoxetine HCL 60 MG CAPSULE.DR PO SCH (09:05)
[2017-07-25] MEDS: oxyCODONE-APAP 5-325MG 1 EACH TAB PO PRN ×3 (10:19→21:51)
[2017-07-25] MEDS: PREGABALIN 75 MG CAP PO SCH ×2 (10:19→21:50)
[2017-07-25 11:41] LABS: Glucose,Whole Blood 202 mg/dL (75-99)
--- NOTE | 2017-07-25 11:49 | P.PN ---
Subjective Progress Note Date: 07/25/17 The patient does not feel significantly better today, still short of breath denies any chest pain, no acute events overnight patient afebrile, reports being pretty dyspneic on exertion with wheezes. Patient has not been very ambulatory Objective - Vital Signs Vital signs: Vital Signs Temp 97.8 F 07/25/17 08:00 Pulse 102 H 07/25/17 08:29 Resp 18 07/25/17 08:00 BP 123/67 07/25/17 08:00 Pulse Ox 95 07/25/17 08:00 Intake & Output 07/24/17 07/25/17 07/25/17 18:59 06:59 18:59 Intake Total 676 480 240 Balance 676 480 240 Weight 140.5 kg Intake: Oral 676 480 240 Other: Voiding Method Toilet Toilet # Voids 1 1 # Bowel Movements 1 - Exam Constitutional: No acute distress, conversant, pleasant Eyes: Anicteric sclerae, moist conjunctiva, no lid-lag, PERRLA ENMT: NC/AT,Oropharynx clear, no erythema, exudates Neck:Supple, FROM, no masses, or JVD, No carotid bruits; No thyromegaly Lungs: Coarse with some expiratory wheezes that seem to be improving daily Clear to percussion, Normal respiratory effort, no accessory muscle use Cardiovascular: Heart regular in rate and rhythm, No murmurs, gallops, or rubs no peripheral edema Abdominal: Soft Nontender, nom distended, no guarding, no rebound or rigidity, Normoactive bowel sounds No hepatomegaly, No splenomegaly, No palpable mass No abdominal wall hernia noted Skin: Normal temperature, tone, texture, turgor, No induration No subcutaneous nodules, No rash, lesions, No ulcers Extremities:No digital cyanosis No clubbing, Pedal pulses intact and symmetrical Radial pulses intact and symmetrical Normal gait and station, No calf tenderness Psychiatric: Alert and oriented to person, place and time, Appropriate affect Intact judgement Neuro: Muscles Strength 5/5 in all 4 extremities, Sensation to light touch grossly present throughout, Cranial nerves II-XII grossly intact. No focal sensory deficits - Labs CBC & Chem 7: 07/22/17 05:28 07/22/17 05:28 Labs: Abnormal Lab Results - Last 24 Hours (Table) 07/24/17 07/24/1707/25/18 Range/Units 16:39 20:56 06:01 POC Glucose (mg/dL) 238 H 155 H 129 H (75-99) mg/dL 07/25/17 Range/Units 11:32 POC Glucose (mg/dL) 202 H (75-99) mg/dL Microbiology - Last 24 Hours (Table) 07/20/17 16:50 Blood Culture - Preliminary Blood No Growth after 96 hours Assessment and Plan (1) Acute respiratory failure with hypoxia Narrative/Plan: * Multifactorial etiology secondary to COPD exacerbation triggered by a community acquired pneumonia in the right lower lobe * Chest x-ray suggesting right lower lobe pneumonia, patient with good oxygen saturations on 3 L nasal cannula * Continue with breathing treatments and antibiotics * BNP within normal range, and echocardiogram suggestive of any CHF, shows normal preserved ejection fraction Current Visit: Yes Status: Acute Code(s): J96.01 - ACUTE RESPIRATORY FAILURE WITH HYPOXIA SNOMED Code(s): 45023541 (2) Acute exacerbation of chronic obstructive airways disease Narrative/Plan: * Triggered by a right lower lobe pneumonia. * Patient not significantly clinically improved today continue with current therapy but will add formoterol and budesonide inhaled * Continue the patient on steroids with prednisone 60 mg by mouth daily, continue with scheduled and when necessary bronchodilator breathing treatments * The patient is not improved by tomorrow, consult pulmonary for further recommendations Current Visit: Yes Status: Acute Code(s): J44.1 - CHRONIC OBSTRUCTIVE PULMONARY DISEASE W (ACUTE) EXACERBATION SNOMED Code(s): 884019009 (3) Community acquired pneumonia Narrative/Plan: * We'll switch patient to oral Levaquin for antibiotic coverage Current Visit: Yes Status: Acute Code(s): J18.9 - PNEUMONIA, UNSPECIFIED ORGANISM SNOMED Code(s): 415842307 (4) Sepsis Narrative/Plan: * Secondary to pneumonia patient afebrile without leukocytosis Current Visit: Yes Status: Resolved Code(s): A41.9 - SEPSIS, UNSPECIFIED ORGANISM SNOMED Code(s): 96839201 (5) Type 2 diabetes mellitus Narrative/Plan: * patient does have a recent diagnosis of type 2 diabetes A1c is 7.9 * Blood sugars improved on long-acting coverage as well with Levemir 12 units daily at bedtime * Continue with correctional scale coverage as a patient is also on steroids Current Visit: Yes Status: Acute Code(s): E11.9 - TYPE 2 DIABETES MELLITUS WITHOUT COMPLICATIONS SNOMED Code(s): 55905648 Plan: We'll consult physical therapy to get the patient ambulatory. Despite stating she's not improving clinically her wheezes are better and her oxygen requirements are less we'll have a home O2 evaluation. Likely approaching discharge in the next 24-48 hours
[2017-07-25] MEDS ORDERED: ALPRAZolam 1 MG TAB PO STA (13:29)
[2017-07-25 16:43] LABS: Glucose,Whole Blood 261 mg/dL (75-99)
[2017-07-25 20:05] LABS: Glucose,Whole Blood 201 mg/dL (75-99)
[2017-07-25] MEDS: ATORVASTATIN 40 MG TAB PO SCH (21:46)
[2017-07-25] MEDS: QUEtiapine 200 MG TAB PO SCH (21:46)
[2017-07-25] MEDS: INSULIN DETEMIR 100 UNIT/ML 10 ML VIAL SQ SCH (21:47)
[2017-07-25] MEDS: IBUPROFEN 800 MG TAB PO PRN (21:51)
[2017-07-25] MEDS: MONTELUKAST 10 MG TAB PO SCH (22:16)
[2017-07-26 07:07] LABS: Glucose,Whole Blood 134 mg/dL (75-99)
[2017-07-26] MEDS: TOPIRAMATE 100 MG TAB PO SCH (07:37)
[2017-07-26] MEDS: HEPARIN SODIUM,PORCINE 5,000 UNIT/ML 1 ML VIAL SQ SCH (07:37)
[2017-07-26] MEDS: DIVALPROEX ER 500 MG TAB.ER.24H PO SCH (07:37)
[2017-07-26] MEDS: DULoxetine HCL 60 MG CAPSULE.DR PO SCH (07:37)
[2017-07-26] MEDS: PANTOPRAZOLE 40 MG TABLET PO SCH (07:37)
[2017-07-26] MEDS: predniSONE 20 MG TAB PO SCH (07:37)
[2017-07-26] MEDS: PREGABALIN 75 MG CAP PO SCH (07:37)
[2017-07-26] MEDS: INSULIN ASPART 100 UNIT/ML 1 ML 10 ML VIAL SQ SCH ×2 (07:37→12:43)
[2017-07-26] MEDS: oxyCODONE-APAP 5-325MG 1 EACH TAB PO PRN (07:42)
[2017-07-26] MEDS: IPRATROPIUM-ALBUTEROL 3 ML NEB INHALATION SCH ×2 (08:01→12:10)
[2017-07-26] MEDS: BUDESONIDE 1 MG/2 ML NEBU INHALATION SCH (08:01)
[2017-07-26] MEDS: FORMOTEROL FUMARATE 20 MCG/2 ML NEBU INHALATION SCH (08:01)
[2017-07-26 08:34] VITALS: BP 97/55; TEMP 97.8
[2017-07-26] MEDS: LEVOFLOXACIN 750 MG TAB PO SCH (10:05)
[2017-07-26] MEDS: IBUPROFEN 800 MG TAB PO PRN (10:05)
[2017-07-26 11:20] LABS: Glucose,Whole Blood 206 mg/dL (75-99)
[2017-07-26 11:41] VITALS: RESP 22
[2017-07-26 12:14] VITALS: PULSE 84
--- NOTE | 2017-07-26 12:38 | P.DS ---
Providers Date of admission: 07/20/17 18:46 Expected date of discharge: 07/26/17 Attending physician: Hiral Suarez DO Primary care physician: Ayanna Smith - Discharge Diagnosis(es) (1) Acute respiratory failure with hypoxia Current Visit: Yes Status: Acute (2) Acute exacerbation of chronic obstructive airways disease Current Visit: Yes Status: Acute (3) Community acquired pneumonia Current Visit: Yes Status: Acute (4) Sepsis Current Visit: Yes Status: Resolved (5) Type 2 diabetes mellitus Current Visit: Yes Status: Acute Hospital Course: The patient is a morbidly obese 42-year-old female that presented with worsening shortness of breath and was found to be in acute respiratory failure with hypoxia secondary to a community-acquired pneumonia superimposed on underlying acute COPD exacerbation and sepsis she was placed on supplemental oxygen and started on empiric IV antibiotics with Rocephin and azithromycin along with scheduled and when necessary bronchodilator DuoNeb breathing treatments along with inhaled formoterol and budesonide she was started on systemic steroids with Solu-Medrol, blood cultures were ordered but were negative. Chest x-ray did suggest her right lower lobe pneumonia. It was thought the patient might of had congestive heart failure However her 2-D echocardiogram showed ejection fraction greater than 55%. As a patient gradually improved her antibiotic regimen was changed to oral Levaquin and she was started on prednisone. The patient reports to being a fairly newly diagnosed type 2 diabetic and she did have elevated blood sugars during hospitalization attributed to ongoing steroid use for treatment of her COPD exacerbation. She was started on correctional scale coverage along with some long-acting basal insulin Levemir at 12 units daily at bedtime, Her hemoglobin A1c was 7.9. Respiratory status gradually improved, she had a home 02 evaluation but was unable to qualify she had pretty good saturations with ambulation, she was subsequently discharged home with new prescriptions for Levaquin and a prednisone taper. The patient was instructed to make a follow- up appointment with her primary care physician in the next 3-5 days. This discharge process took approximately 35 minutes Constitutional: No acute distress, conversant, pleasant Eyes: Anicteric sclerae, moist conjunctiva, no lid-lag, PERRLA ENMT: NC/AT,Oropharynx clear, no erythema, exudates Neck:Supple, FROM, no masses, or JVD, No carotid bruits; No thyromegaly Lungs: Faint wheezes much improved from previous, Clear to percussion, Normal respiratory effort, no accessory muscle use Cardiovascular: Heart regular in rate and rhythm, No murmurs, gallops, or rubs no peripheral edema Abdominal: Soft Nontender, nom distended, no guarding, no rebound or rigidity, Normoactive bowel sounds No hepatomegaly, No splenomegaly, No palpable mass No abdominal wall hernia noted Skin: Normal temperature, tone, texture, turgor, No induration No subcutaneous nodules, No rash, lesions, No ulcers Extremities:No digital cyanosis No clubbing, Pedal pulses intact and symmetrical Radial pulses intact and symmetrical Normal gait and station, No calf tenderness Psychiatric: Alert and oriented to person, place and time, Appropriate affect Intact judgement Neuro: Muscles Strength 5/5 in all 4 extremities, Sensation to light touch grossly present throughout, Cranial nerves II-XII grossly intact. No focal sensory deficits Patient Condition at Discharge: Fair Plan - Discharge Summary Discharge Rx Participant: No New Discharge Prescriptions: New Levofloxacin [Levaquin] 750 mg PO DAILY@1200 #3 tab predniSONE 60 mg PO DAILY #0 tab Continue Docusate [Colace] 100 mg PO HS PRN PRN Reason: Constipation Albuterol Inhaler [Ventolin Hfa Inhaler] 2 puff INHALATION RT-Q6H PRN PRN Reason: Bronchodilation Omeprazole [PriLOSEC] 20 mg PO BID Montelukast Sodium [Singulair] 10 mg PO HS DULoxetine HCL [Cymbalta] 60 mg PO DAILY Butalb/APAP/Caff 50-325-40Mg [Fioricet 50-325-40] 1 tab PO Q8H PRN PRN Reason: Headache QUEtiapine [SEROquel] 200 mg PO HS Ibuprofen [Motrin] 800 mg PO TID PRN PRN Reason: Pain Topiramate 100 mg PO BID oxyCODONE-APAP 7.5-325MG [Percocet 7.5-325 mg] 1 tab PO BID PRN PRN Reason: Pain metFORMIN HCL [Glucophage] 1,000 mg PO BID Pregabalin [Lyrica] 150 mg PO BID Ergocalciferol (Vitamin D2) [Vitamin D2] 50,000 unit PO SIMON Budesonide/Formoterol Fumarate [Symbicort 160-4.5 Mcg Inhaler] 2 puff INHALATION RT-BID Atorvastatin [Lipitor] 40 mg PO HS Ipratropium-Albuterol Nebulize [Duoneb 0.5 mg-3 mg/3 ml Soln] 3 ml INHALATION RT-Q4H PRN PRN Reason: Shortness Of Breath Divalproex ER [Depakote ER] 500 mg PO TID Discharge Medication List Albuterol Inhaler [Ventolin Hfa Inhaler] 2 puff INHALATION RT-Q6H PRN 12/06/13 [ History] Docusate [Colace] 100 mg PO HS PRN 12/06/13 [History] Omeprazole [PriLOSEC] 20 mg PO BID 12/06/13 [History] Montelukast Sodium [Singulair] 10 mg PO HS 03/20/14 [History] DULoxetine HCL [Cymbalta] 60 mg PO DAILY 06/09/15 [History] Butalb/APAP/Caff 50-325-40Mg [Fioricet 50-325-40] 1 tab PO Q8H PRN 07/31/15 [ History] QUEtiapine [SEROquel] 200 mg PO HS 09/22/15 [History] Ibuprofen [Motrin] 800 mg PO TID PRN 10/07/15 [History] Topiramate 100 mg PO BID 10/07/15 [History] Atorvastatin [Lipitor] 40 mg PO HS 07/20/17 [History] Budesonide/Formoterol Fumarate [Symbicort 160-4.5 Mcg Inhaler] 2 puff INHALATION RT-BID 07/20/17 [History] Divalproex ER [Depakote ER] 500 mg PO TID 07/20/17 [History] Ergocalciferol (Vitamin D2) [Vitamin D2] 50,000 unit PO SIMON 07/20/17 [History] Ipratropium-Albuterol Nebulize [Duoneb 0.5 mg-3 mg/3 ml Soln] 3 ml INHALATION RT -Q4H PRN 07/20/17 [History] Pregabalin [Lyrica] 150 mg PO BID 07/20/17 [History] metFORMIN HCL [Glucophage] 1,000 mg PO BID 07/20/17 [History] oxyCODONE-APAP 7.5-325MG [Percocet 7.5-325 mg] 1 tab PO BID PRN 07/20/17 [ History] Levofloxacin [Levaquin] 750 mg PO DAILY@1200 #3 tab 07/26/17 [Rx] predniSONE 60 mg PO DAILY #0 tab 07/26/17 [Rx] Follow up Appointment(s)/Referral(s): Ayanna Smith MD [Primary Care Provider] - 08/01/17 10:30 am Patient Instructions/Handouts: Levofloxacin (By mouth), How to Stop Smoking (DC ), COPD (Chronic Obstructive Pulmonary Disease) (DC), Pneumonia (DC) Discharge Disposition: HOME SELF-CARE
--- NOTE | 2017-07-26 16:09 | P.PN ---
Subjective Progress Note Date: 07/24/17 The patient does not feel significantly better today, still short of breath denies any chest pain, no acute events overnight patient afebrile, reports being pretty dyspneic on exertion with wheezes. Patient has not been very ambulatory Objective - Vital Signs Vital signs: Vital Signs Temp 97.8 F 07/26/17 07:00 Pulse 84 07/26/17 12:25 Resp 22 07/26/17 11:40 BP 97/55 07/26/17 07:00 Pulse Ox 90 L 07/26/17 11:40 Intake & Output 07/25/17 07/26/17 07/26/17 18:59 06:59 18:59 Intake Total 480 540 600 Balance 480 540 600 Weight 98 kg Intake: Oral 480 540 600 Other: Voiding Method Toilet Toilet Toilet # Voids 1 1 2 - Exam Constitutional: No acute distress, conversant, pleasant Eyes: Anicteric sclerae, moist conjunctiva, no lid-lag, PERRLA ENMT: NC/AT,Oropharynx clear, no erythema, exudates Neck:Supple, FROM, no masses, or JVD, No carotid bruits; No thyromegaly Lungs: Coarse with some expiratory wheezes that seem to be improving daily Clear to percussion, Normal respiratory effort, no accessory muscle use Cardiovascular: Heart regular in rate and rhythm, No murmurs, gallops, or rubs no peripheral edema Abdominal: Soft Nontender, nom distended, no guarding, no rebound or rigidity, Normoactive bowel sounds No hepatomegaly, No splenomegaly, No palpable mass No abdominal wall hernia noted Skin: Normal temperature, tone, texture, turgor, No induration No subcutaneous nodules, No rash, lesions, No ulcers Extremities:No digital cyanosis No clubbing, Pedal pulses intact and symmetrical Radial pulses intact and symmetrical Normal gait and station, No calf tenderness Psychiatric: Alert and oriented to person, place and time, Appropriate affect Intact judgement Neuro: Muscles Strength 5/5 in all 4 extremities, Sensation to light touch grossly present throughout, Cranial nerves II-XII grossly intact. No focal sensory deficits - Labs CBC & Chem 7: 07/22/17 05:28 07/22/17 05:28 Labs: Abnormal Lab Results - Last 24 Hours (Table) 07/25/17 07/25/17 07/26/17 Range/Units 16:38 20:03 07:03 POC Glucose (mg/dL) 261 H 201 H 134 H (75-99) mg/dL 07/26/17 Range/Units 11:14 POC Glucose (mg/dL) 206 H (75-99) mg/dL Microbiology - Last 24 Hours (Table) 07/20/17 16:50 Blood Culture - Preliminary Blood No Growth after 120 hours Assessment and Plan (1) Acute respiratory failure with hypoxia Narrative/Plan: * Multifactorial etiology secondary to COPD exacerbation triggered by a community acquired pneumonia in the right lower lobe * Chest x-ray suggesting right lower lobe pneumonia, patient with good oxygen saturations on 3 L nasal cannula * Continue with breathing treatments and antibiotics * BNP within normal range, and echocardiogram suggestive of any CHF, shows normal preserved ejection fraction Status: Acute Code(s): J96.01 - ACUTE RESPIRATORY FAILURE WITH HYPOXIA SNOMED Code(s): 16006776 (2) Acute exacerbation of chronic obstructive airways disease Narrative/Plan: * Triggered by a right lower lobe pneumonia. * Patient not significantly clinically improved today continue with current therapy but will add formoterol and budesonide inhaled * Continue the patient on steroids with prednisone 60 mg by mouth daily, continue with scheduled and when necessary bronchodilator breathing treatments * The patient is not improved by tomorrow, consult pulmonary for further recommendations Status: Acute Code(s): J44.1 - CHRONIC OBSTRUCTIVE PULMONARY DISEASE W (ACUTE ) EXACERBATION SNOMED Code(s): 860726495 (3) Community acquired pneumonia Narrative/Plan: * We'll switch patient to oral Levaquin for antibiotic coverage Status: Acute Code(s): J18.9 - PNEUMONIA, UNSPECIFIED ORGANISM SNOMED Code(s ): 583947581 (4) Sepsis Narrative/Plan: * Secondary to pneumonia patient afebrile without leukocytosis Status: Resolved Code(s): A41.9 - SEPSIS, UNSPECIFIED ORGANISM SNOMED Code(s ): 23616074 (5) Type 2 diabetes mellitus Narrative/Plan: * patient does have a recent diagnosis of type 2 diabetes A1c is 7.9 * Blood sugars improved on long-acting coverage as well with Levemir 12 units daily at bedtime * Continue with correctional scale coverage as a patient is also on steroids Status: Acute Code(s): E11.9 - TYPE 2 DIABETES MELLITUS WITHOUT COMPLICATIONS SNOMED Code(s): 38629505
== END 2017-07-26 13:51 | disposition home or self-care (01) | DRG 871 ==
LOC: EC 16:30 → 6SEL 18:46 → 5MS5E 07-25 18:10
PROVIDERS: ADMIT Internal Medicine; ATTEND Internal Medicine
DX: A41.9 Sepsis, unspecified organism (principal); J18.9 Pneumonia, unspecified organism; J96.01 Acute respiratory failure with hypoxia; I50.32 Chronic diastolic (congestive) heart failure; J44.0 Chronic obstructive pulmonary disease with (acute) lower respiratory infection; J44.1 Chronic obstructive pulmonary disease with (acute) exacerbation; K76.0 Fatty (change of) liver, not elsewhere classified; E11.42 Type 2 diabetes mellitus with diabetic polyneuropathy; E66.01 Morbid (severe) obesity due to excess calories; E78.5 Hyperlipidemia, unspecified; F17.210 Nicotine dependence, cigarettes, uncomplicated; F20.9 Schizophrenia, unspecified; N28.1 Cyst of kidney, acquired; F32.9 Major depressive disorder, single episode, unspecified; F43.10 Post-traumatic stress disorder, unspecified; G40.909 Epilepsy, unspecified, not intractable, without status epilepticus; G47.33 Obstructive sleep apnea (adult) (pediatric); T38.0X5A Adverse effect of glucocorticoids and synthetic analogues, initial encounter; K21.9 Gastro-esophageal reflux disease without esophagitis; M79.7 Fibromyalgia; G89.29 Other chronic pain; K44.9 Diaphragmatic hernia without obstruction or gangrene; M19.90 Unspecified osteoarthritis, unspecified site; N83.209 Unspecified ovarian cyst, unspecified side; M54.9 Dorsalgia, unspecified; K22.70 Barrett's esophagus without dysplasia; F41.9 Anxiety disorder, unspecified; Z68.38 Body mass index [BMI] 38.0-38.9, adult; Z79.51 Long term (current) use of inhaled steroids; Z79.84 Long term (current) use of oral hypoglycemic drugs; Z88.8 Allergy status to other drugs, medicaments and biological substances; Z98.1 Arthrodesis status; Z90.710 Acquired absence of both cervix and uterus; Z85.41 Personal history of malignant neoplasm of cervix uteri; Z79.899 Other long term (current) drug therapy; Z82.49 Family history of ischemic heart disease and other diseases of the circulatory system
CPT/HCPCS: 36415; 71046; 80048; 80053; 81003; 82550; 82553; 83036; 83735; 83880; 84484; 85025; 85610; 85730; 87040; 87086; 87502; 93005; 93306; 94640; 94760; 96361; 96365; 96366; 96375; 99285

== ENCOUNTER 2017-08-18 05:21 | Observation (INO) | payer OTHER ==
[2017-08-18] MEDS ORDERED: NITROGLYCERIN OINT 1 INCH/GM PACKET TOPICAL STA (05:30)
[2017-08-18] MEDS ORDERED: LORazepam 2 MG/ML INJ IV STA (05:30)
[2017-08-18] MEDS ORDERED: ASPIRIN 81 MG PO STA (05:30)
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
[2017-08-18 05:42] LABS: Basophils % (A) 0 %; Eosinophils # (A) 0.2 k/uL (0-0.7); Eosinophils % (A) 1 %; HCT 43.5 % (34.0-46.0); HGB 14.2 gm/dL (11.4-16.0); Lymphocytes # (A) 3.4 k/uL (1.0-4.8); Lymphocytes % (A) 28 %; MCH 27.7 pg (25.0-35.0); MCHC 32.6 g/dL (31.0-37.0); Mean Platelet Volume 7.6; Monocytes # (A) 0.6 k/uL (0-1.0); Monocytes % (A) 5 %; Neutrophils # (A) 7.9 k/uL (1.3-7.7); Neutrophils % (A) 65 %; Platelet Count 339 k/uL (150-450); RBC 5.12 m/uL (3.80-5.40); RDW 15.1 % (11.5-15.5); WBC 12.2 k/uL (3.8-10.6)
[2017-08-18 05:52] LABS: INR 0.9 (<1.2); Partial Thromboplastin Time 22.7 sec (22.0-30.0); Prothrombin Time 9.4 sec (9.0-12.0)
[2017-08-18 05:56] LABS: ALT 19 U/L (9-52); AST 25 U/L (14-36); Albumin 3.7 g/dL (3.5-5.0); Alkaline Phosphatase 93 U/L (38-126); Anion Gap 18 mmol/L; Blood Urea Nitrogen 8 mg/dL (7-17); Calcium 9.8 mg/dL (8.4-10.2); Carbon Dioxide 18 mmol/L (22-30); Chloride 108 mmol/L (98-107); Glucose 172 mg/dL (74-99); Magnesium 2.1 mg/dL (1.6-2.3); Sodium 144 mmol/L (137-145); Total Bilirubin 0.4 mg/dL (0.2-1.3); Total Protein 6.7 g/dL (6.3-8.2)
[2017-08-18 05:58] LABS: Creatine Kinase 42 U/L (30-135)
[2017-08-18 06:02] LABS: Valproic Acid (Depakene) 52.8 ug/mL
--- NOTE | 2017-08-18 06:08 | XR ---
EXAM: XR Chest, 2 Views CLINICAL HISTORY: Chest pain TECHNIQUE: Frontal and lateral views of the chest. COMPARISON: Chest x-ray dated 07/21/2017 FINDINGS: Lungs: Unremarkable. No consolidation. Pleural space: Unremarkable. No pneumothorax. Heart: Unremarkable. No cardiomegaly. Mediastinum: Unremarkable. Bones/joints: Fusion hardware noted within the cervical spine. IMPRESSION: No acute findings.
[2017-08-18 06:11] LABS: Creatine Kinase MB <0.2 ng/mL (0.0-2.4); Troponin I <0.012 ng/mL (0.000-0.034)
[2017-08-18] MEDS ORDERED: NITROGLYCERIN SL TABS 0.4 MG TAB SUBLINGUAL PRN (07:12)
[2017-08-18 12:54] LABS: Creatine Kinase 36 U/L (30-135)
[2017-08-18] MEDS: NITROGLYCERIN OINT 1 INCH/GM PACKET TOPICAL SCH ×2 (13:04→18:19)
[2017-08-18 13:06] LABS: Creatine Kinase MB <0.2 ng/mL (0.0-2.4); Troponin I <0.012 ng/mL (0.000-0.034)
[2017-08-18] MEDS ORDERED: DOBUTamine DRIP for NUC MED 250 MG in DEXTROSE/WATER 1 250ML.BAG IV ONE (15:02)
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
[2017-08-18] MEDS ORDERED: IBUPROFEN 400 MG TAB PO PRN (15:20)
[2017-08-18] MEDS ORDERED: IPRATROPIUM-ALBUTEROL 3 ML NEB INHALATION PRN (15:20)
[2017-08-18] MEDS ORDERED: DOCUSATE 100 MG CAP PO PRN (15:20)
[2017-08-18] MEDS: IPRATROPIUM-ALBUTEROL 3 ML NEB INHALATION SCH ×2 (16:55→19:59)
[2017-08-18 18:11] LABS: Creatine Kinase 33 U/L (30-135)
[2017-08-18] MEDS: DIVALPROEX ER 500 MG TAB.ER.24H PO SCH ×2 (18:19→20:44)
[2017-08-18 18:21] LABS: Glucose,Whole Blood 166 mg/dL (75-99)
[2017-08-18] MEDS: oxyCODONE-APAP 7.5-325MG 1 EACH TAB PO PRN (18:21)
[2017-08-18 18:24] LABS: Creatine Kinase MB <0.2 ng/mL (0.0-2.4); Troponin I <0.012 ng/mL (0.000-0.034)
[2017-08-18] MEDS ORDERED: ALBUTEROL INHALER 60 PUFF/8 GM INHALER INHALATION PRN (18:47)
--- NOTE | 2017-08-18 19:36 | HP ---
HISTORY AND PHYSICAL DATE OF SERVICE: 08/18/2017 CHIEF COMPLAINT: Chest pain. HISTORY OF PRESENT ILLNESS: This 42-year-old woman with a past medical history of asthma, diabetes mellitus, fibromyalgia, GERD, hypertension, hyperlipidemia, obesity, sleep apnea, history of pseudoseizures, being followed by Dr. Ayanna Smith in the outpatient setting, was complaining of chest pain. The patient apparently presented to [facility] with complaints of pseudoseizures, but subsequently the patient had chest pain in the anterior part of the chest without much radiation or other symptoms. The patient was admitted for further evaluation and treatment. The patient reports significant stress at this time. There is no history of any fever, rigor or chills. PAST MEDICAL HISTORY: 1. Asthma. 2. Pseudoseizure. 3. Diabetes mellitus. 4. Fibromyalgia. 5. GERD. 6. Hypertension. 7. History of pneumonia. 8. History of cholecystectomy. HOME MEDICATIONS: 1. Percocet 1 tablet p.o. b.i.d. p.r.n. 2. Glucophage 1000 mg p.o. b.i.d. 3. Topamax 100 mg p.o. b.i.d. 4. Seroquel XR 200 mg p.o. at bedtime. 5. Lyrica 150 mg p.o. b.i.d. 6. Prilosec 20 mg p.o. b.i.d. 7. Singulair 10 mg p.o. at bedtime. 8. DuoNeb q.4 p.r.n. 9. Motrin 800 mg t.i.d. p.r.n. 10.Vitamin D2 50,000 p.o. Tuesday. 11.Colace 100 mg p.o. at bedtime p.r.n. 12.Depakote ER 500 mg p.o. t.i.d. 13.Cymbalta 60 mg p.o. daily. 14.Symbicort 160/4.5 two puffs b.i.d. 15.Lipitor 40 mg at bedtime. 16.Ventolin HFA 2 puffs q.6 p.r.n. ALLERGIES: MULTIPLE ALLERGIES: 1. KETORALAC. 2. NADOLOL. 3. ADHESIVES. 4. KLONOPIN. 5. BENTYL. 6. NICOTINE. FAMILY HISTORY: History of CHF, diabetes mellitus, type 2, DJD, renal disease, broken heart syndrome, anemia. SOCIAL HISTORY: History of smoking. No history of alcohol intake. REVIEW OF SYSTEMS: ENT: No diminished hearing. No diminished vision. CARDIOVASCULAR SYSTEM: As mentioned earlier. RESPIRATORY SYSTEM: As mentioned earlier. GI: No nausea, vomiting. : No dysuria or retention. NERVOUS SYSTEM: No numbness, weakness. ALLERGY/IMMUNOLOGY: No asthma, hayfever. MUSCULOSKELETAL: As mentioned earlier. HEMATOLOGY/ONCOLOGY: No history of anemia. ENDOCRINE: History of diabetes mellitus. CONSTITUTIONAL: As mentioned earlier. DERMATOLOGY: Negative. RHEUMATOLOGY: Negative. PSYCHIATRY: As mentioned earlier. PHYSICAL EXAMINATION: Patient is alert, oriented x3. Pulse 70, blood pressure 108/74, respiration 18, temperature 98.3, pulse ox 94% on room air. HEENT: Conjunctivae normal. Oral mucosa moist. NECK: No jugular venous distention. No carotid bruit. No lymph node enlargement. CARDIOVASCULAR SYSTEM: S1, S2 muffled. No S3. No S4. RESPIRATORY SYSTEM: Breath sounds diminished at the bases. A few scattered rhonchi. No crackles. ABDOMEN: Soft, nontender. No mass palpable. LEGS: No edema. No swelling. NERVOUS SYSTEM: Higher functions as mentioned earlier. Moves all 4 limbs. No focal motor or sensory deficit. LYMPHATICS: No lymph node palpable in neck, axillae or groin. SKIN: No ulcer, rash, bleeding. LABS: WBC 12.2, hemoglobin 14.2, sodium 140, potassium 4, glucose 172. Valproic acid 52.8. ASSESSMENT: 1. Chest pain, possible unstable angina, possibly musculoskeletal. 2. History of pseudoseizures. 3. Asthma. 4. Diabetes mellitus. 5. Fibromyalgia. 6. Gastroesophageal reflux disease. 7. Hyperlipidemia. 8. Hypertension. 9. History of pneumonia. 10.Sleep apnea. 11.History of obesity with body mass index of 53.4. 12.Chronic back pain, degenerative joint disease. 13.Cholecystectomy. 14.History of degenerative joint disease. 15.Continued ongoing nicotine dependence. 16.Bipolar depression, anxiety, post-traumatic stress disorder. 17.Schizophrenia. RECOMMENDATIONS AND DISCUSSION: In this 42-year-old woman who presented with multiple complex medical issues, we will monitor the patient closely, continue the current medications, continue with symptomatic treatment. Rule out myocardial infarction. Unstable angina protocol. Otherwise, cardiology consultation. Possible stress test. Guarded prognosis because of multiple complex medical issues. Further recommendations to follow. See orders for further details. A copy of this dictation is being forwarded to Dr. Ayanna Smith, who is the primary physician. MMODL / IJN: [id number] /
[2017-08-18] MEDS: SYMBICORT 160-4.5 MCG INHALER INHALATION SCH (19:59)
[2017-08-18 20:18] LABS: Glucose,Whole Blood 222 mg/dL (75-99)
[2017-08-18] MEDS: QUEtiapine 100 MG TAB PO SCH (20:44)
[2017-08-18] MEDS: PREGABALIN 75 MG CAP PO SCH (20:44)
[2017-08-18] MEDS: TOPIRAMATE 100 MG TAB PO SCH (20:44)
[2017-08-18] MEDS: metFORMIN 500 MG TAB PO SCH (20:44)
[2017-08-18] MEDS: SODIUM CHLORIDE 0.9% 1,000 ML IV SCH (20:54)
[2017-08-18] MEDS ORDERED: ATORVASTATIN 40 MG TAB PO SCH (21:00)
[2017-08-18] MEDS ORDERED: MONTELUKAST 10 MG TAB PO SCH (21:00)
[2017-08-19] MEDS: NITROGLYCERIN OINT 1 INCH/GM PACKET TOPICAL SCH ×3 (00:01→12:31)
[2017-08-19 07:00] LABS: Glucose,Whole Blood 122 mg/dL (75-99)
[2017-08-19] MEDS ORDERED: PANTOPRAZOLE 40 MG TABLET PO SCH (07:30)
[2017-08-19 07:43] LABS: Basophils % (A) 1 %; Eosinophils # (A) 0.1 k/uL (0-0.7); Eosinophils % (A) 1 %; HCT 39.8 % (34.0-46.0); HGB 13.2 gm/dL (11.4-16.0); Lymphocytes # (A) 3.1 k/uL (1.0-4.8); Lymphocytes % (A) 39 %; MCH 28.9 pg (25.0-35.0); MCHC 33.1 g/dL (31.0-37.0); MCV 87.3 fL (80.0-100.0); Mean Platelet Volume 7.1; Monocytes # (A) 0.4 k/uL (0-1.0); Monocytes % (A) 5 %; Neutrophils # (A) 4.1 k/uL (1.3-7.7); Neutrophils % (A) 52 %; Platelet Count 315 k/uL (150-450); RBC 4.56 m/uL (3.80-5.40); RDW 15.2 % (11.5-15.5); WBC 7.9 k/uL (3.8-10.6)
[2017-08-19 08:00] LABS: Anion Gap 13 mmol/L; Blood Urea Nitrogen 8 mg/dL (7-17); Calcium 8.9 mg/dL (8.4-10.2); Carbon Dioxide 22 mmol/L (22-30); Chloride 110 mmol/L (98-107); Cholesterol 115 mg/dL (<200); Glucose 123 mg/dL (74-99); HDL Cholesterol 22 mg/dL (40-60); Sodium 145 mmol/L (137-145)
[2017-08-19 08:11] LABS: Triglycerides 546 mg/dL (<150)
[2017-08-19] MEDS: IPRATROPIUM-ALBUTEROL 3 ML NEB INHALATION SCH ×2 (08:18→11:42)
[2017-08-19] MEDS: SYMBICORT 160-4.5 MCG INHALER INHALATION SCH (08:18)
[2017-08-19 08:57] VITALS: RESP 16
[2017-08-19] MEDS ORDERED: ASPIRIN 325 MG TAB PO SCH (09:00)
[2017-08-19] MEDS ORDERED: DULoxetine HCL 60 MG CAPSULE.DR PO SCH (09:00)
[2017-08-19] MEDS: SODIUM CHLORIDE 0.9% 1,000 ML IV SCH (09:30)
[2017-08-19] MEDS: oxyCODONE-APAP 7.5-325MG 1 EACH TAB PO PRN (10:03)
[2017-08-19 12:12] VITALS: BP 119/77; PULSE 91; TEMP 97.8
--- NOTE | 2017-08-19 12:17 | P.PN ---
Subjective Progress Note Date: 08/19/17 Mrs. Oliveira is a pleasant 42-year-old female past medical history significant for diabetes mellitus, seizure disorder, dyslipidemia, sleep apnea, firbomyalgia, anxiety, bipolar, schizophrenia, borderline personality disorder chronic tobacco abuse. She denies history of CAD. We've been asked to see her in consultation for complaints of chest pain. She states she had multiple seizures last night while at home. She called EMS to bring her to be evaluated for the seizure and she started having chest pain in the ambulance. She states the pain was located in the midsternal region and radiated underneath the left breast. She denies associated shortness of breath, palpitations, nausea, vomiting or diaphoresis she does however state she was mildly dizzy although she is dizzy every time she has a seizure she states. She is unsure how many seizures she had loss of consciousness at all. She states her last seizure prior to last night was on Tuesday. EKG on arrival reveals sinus mechanism with no acute ST or T-wave abnormalities. Chest x-ray is negative for an acute cardiopulmonary process. Laboratory data reviewed, WBC 12.2, hemoglobin 14.2, potassium 4.0, magnesium 2.1, creatinine 0.6, cardiac enzymes negative 2. Current cardiac medications include atorvastatin 40 mg daily. She had an echocardiogram performed earlier this month which revealed preserved left ventricular systolic function with ejection fraction 55% and no evidence of valvular heart disease. 08/19/2017 Pt is seen and examined this morning. Cardiac enzymes have come back negative x3. Blood pressure 101/51 heart rate 76. Telemetry tracings have been unremarkable. Repeat laboratory data this morning reveals hemoglobin 13.2, platelets 215, potassium 4.0, creatinine 0.64, HDL 22, triglycerides 546 and LDL was unable to be calculated secondary to hypertriglyceridemia. Objective - Vital Signs Vital signs: Vital Signs Temp 97.8 F 08/19/17 12:00 Pulse 91 08/19/17 12:00 Resp 16 08/19/17 12:00 BP 119/77 08/19/17 12:00 Pulse Ox 95 08/19/17 12:00 Intake & Output 08/18/17 08/19/17 08/19/17 18:59 06:59 18:59 Intake Total 240 Balance 240 Weight 136.8 kg Intake: Oral 240 Other: # Voids 1 1 - Exam GENERAL: Well-appearing, well-nourished and in no acute distress. Morbidly obese. NECK: Supple without JVD or thyromegaly. LUNGS: Breath sounds clear to auscultation bilaterally. Respiration equal and unlabored. No wheezes, rales or rhonchi. HEART: Regular rate and rhythm without murmurs, rubs or gallops. S1 and S2 heard. EXTREMITIES: Normal range of motion, no edema. No clubbing or cyanosis. Peripheral pulses intact and strong. - Labs CBC & Chem 7: 08/19/17 07:25 08/19/17 07:25 Labs: Abnormal Lab Results - Last 24 Hours (Table) 08/18/17 08/18/17 08/19/17 Range/Units 18:19 20:13 06:57 Chloride (98-107) mmol/L Glucose (74-99) mg/dL POC Glucose (mg/dL) 166 H 222 H 122 H (75-99) mg/dL Triglycerides (<150) mg/dL HDL Cholesterol (40-60) mg/dL 08/19/17 Range/Units 07:25 Chloride 110 H (98-107) mmol/L Glucose 123 H (74-99) mg/dL POC Glucose (mg/dL) (75-99) mg/dL Triglycerides 546 H (<150) mg/dL HDL Cholesterol 22 L (40-60) mg/dL Assessment and Plan Assessment: ASSESSMENT 1. Chest pain, atypical after suffering seizure. No EKG evidence of acute ischemia and so far 2 sets of negative cardiac enzymes. 2. Dyslipidemia 3. Seizure disorder with recent witnessed seizure at home. 4. Morbid obesity 5. Chronic tobacco use PLAN Proceed with dobutamine stress echocardiogram to assess for stress induced ischemia. Lifestyle modifications discussed for weight loss and lowering of triglycerides and cholesterol. Smoking cessation discussed. Stable from a cardiac perspective if stress test is negative. Nurse Practitioner note has been reviewed, I agree with a documented findings and plan of care. Patient was seen and examined.
[2017-08-19] MEDS: QUEtiapine 100 MG TAB PO SCH (12:27)
[2017-08-19] MEDS: metFORMIN 500 MG TAB PO SCH (12:27)
[2017-08-19] MEDS: TOPIRAMATE 100 MG TAB PO SCH (12:27)
[2017-08-19] MEDS: PREGABALIN 75 MG CAP PO SCH (12:27)
[2017-08-19] MEDS: DIVALPROEX ER 500 MG TAB.ER.24H PO SCH (12:28)
[2017-08-19 12:29] LABS: Glucose,Whole Blood 148 mg/dL (75-99)
--- NOTE | 2017-08-19 12:40 | ECHOS ---
STRESS ECHOCARDIOGRAM BASELINE HEART RATE: 77 BASELINE BLOOD PRESSURE: 106/77 MAXIMUM HEART RATE: 152 MAXIMUM BLOOD PRESSURE: 156/60 85% MPHR: 152 100% MPHR: 179 MAXIMUM STAGE REACHED: 4 TOTAL EXERCISE TIME: 11:00 CLINICAL INFORMATION: Baseline EKG revealed a sinus mechanism with poor R-wave progression over precordial leads. With the dobutamine administration, the heart rate went up to 152 beats per minute. Patient did not have any significant symptoms. EKG did not reveal any ST- segment changes to indicate ischemia. There was no arrhythmia. By EKG criteria, this is an unremarkable dobutamine stress test study. Baseline echo images revealed normal wall motion and wall thickening of all segments. Lumiscan, an echo contrast agent was used to optimize the images. With the dobutamine administration as per protocol, there was progressive increase in left ventricular contractility involving all segments suggesting that there is no evidence of stress- induced ischemia on this study. IMPRESSION: 1. By EKG criteria this is an unremarkable dobutamine stress test. 2. Normal dobutamine stress echocardiogram. MMODL / IJN: [id number] /
--- NOTE | 2017-08-20 02:45 | DS ---
DISCHARGE SUMMARY FINAL DIAGNOSES: 1. Chest pain possible unstable angina possibly musculoskeletal with negative dobutamine stress echo. 2. History of pseudoseizures. 3. Asthma. 4. Diabetes mellitus type 2. 5. Fibromyalgia. 6. Gastroesophageal reflux disease. 7. Hyperlipidemia. 8. Hypertension. 9. History of pneumonia. 10.Sleep apnea. 11.History of obesity with body mass index of 53.4. 12.Chronic back pain/degenerative joint disease. 13.Cholecystectomy. 14.History of degenerative joint disease. 15.Continued ongoing nicotine dependence. 16.Bipolar depression, anxiety, posttraumatic stress disorder. 17.Schizophrenia. DISCHARGE DISPOSITION: The patient being discharged in stable condition with guarded prognosis. HISTORY OF PRESENT ILLNESS: This 42-year-old woman with a past medical history of multiple medical problems being followed by Dr. Ayanna Smith in the outpatient setting, admitted to the hospital with chest pain. Myocardial infarction ruled out. which is negative and patient being discharged in stable condition with guarded prognosis. PHYSICAL EXAMINATION: On exam, vital signs are stable. Cardiovascular: S1, S2. Abdomen soft. Nervous system: No focal deficits. Triglycerides found to be 546. Tricor was initiated. DISCHARGE ADVICE AND MEDICATIONS: 1. Diet is cardiac diet. 2. Activity limited until followup. 3. Follow up with Dr. Ayanna Smith in 2-3 days. 4. Follow up with Cardiology as recommended. MEDICATIONS: 1. Albuterol 2 puffs q.i.d. p.r.n. 2. Lipitor 40 mg q.h.s. 3. Symbicort 2 puffs b.i.d. 4. Depakote ER 500 mg p.o. t.i.d. 5. Colace 100 mg p.o. q.h.s. 6. Cymbalta 60 mg p.o. daily. 7. Vitamin D2 50,000 daily. 8. Fenofibrate 145 mg p.o. q.h.s. 9. Motrin 400 mg p.o. t.i.d. p.r.n. 10.DuoNeb q.i.d. and p.r.n. 11.Glucophage 1000 mg p.o. b.i.d. 12.Singular 10 mg q.h.s. 13.Prilosec 20 mg p.o. b.i.d. 14.Oxycodone 1 tab p.o. b.i.d. p.r.n. 15.Lyrica 150 mg p.o. b.i.d. 16.Celexa 20 mg p.o. q.h.s. 17.Topamax 100 mg p.o. b.i.d. Once again, the patient is being discharged in stable condition with guarded prognosis. MMODL / IJN: [id number] / MTDKriss
[2017-08-21] MEDS ORDERED: ERGOCALCIFEROL 50,000 UNIT CAP PO SCH (09:00)
== END 2017-08-19 15:11 | disposition home or self-care (01) ==
LOC: EC 05:21 → 3OBS 07:12
PROVIDERS: ADMIT Internal Medicine; ATTEND Internal Medicine
DX: R07.89 Other chest pain (principal); F44.5 Conversion disorder with seizures or convulsions; E11.42 Type 2 diabetes mellitus with diabetic polyneuropathy; E78.5 Hyperlipidemia, unspecified; J45.909 Unspecified asthma, uncomplicated; M79.7 Fibromyalgia; K21.9 Gastro-esophageal reflux disease without esophagitis; F17.200 Nicotine dependence, unspecified, uncomplicated; I10 Essential (primary) hypertension; G47.33 Obstructive sleep apnea (adult) (pediatric); Z99.89 Dependence on other enabling machines and devices; E66.01 Morbid (severe) obesity due to excess calories; Z68.43 Body mass index [BMI] 50.0-59.9, adult; M19.90 Unspecified osteoarthritis, unspecified site; G89.29 Other chronic pain; M54.9 Dorsalgia, unspecified; F43.10 Post-traumatic stress disorder, unspecified; F31.9 Bipolar disorder, unspecified; F20.9 Schizophrenia, unspecified; F41.9 Anxiety disorder, unspecified; K76.0 Fatty (change of) liver, not elsewhere classified; E78.1 Pure hyperglyceridemia; F43.9 Reaction to severe stress, unspecified; Z98.1 Arthrodesis status; Z79.84 Long term (current) use of oral hypoglycemic drugs; Z79.51 Long term (current) use of inhaled steroids; Z79.899 Other long term (current) drug therapy; Z88.5 Allergy status to narcotic agent; Z88.8 Allergy status to other drugs, medicaments and biological substances; Z87.828 Personal history of other (healed) physical injury and trauma; Z91.048 Other nonmedicinal substance allergy status; Z90.49 Acquired absence of other specified parts of digestive tract; Z87.01 Personal history of pneumonia (recurrent); Z82.49 Family history of ischemic heart disease and other diseases of the circulatory system; Z82.61 Family history of arthritis; Z84.1 Family history of disorders of kidney and ureter; Z83.2 Family history of diseases of the blood and blood-forming organs and certain disorders involving the immune mechanism
CPT/HCPCS: 99285 ×2; 96374 ×2; 96361; 36415; 94640 ×4; 93005; 93017; 80164; 80061; 80053; 80048; 82550; 82553; 83735; 84484; 85025 ×2; 85610; 85730; 71046; G0378 ×2; C8928; J2060; Q9950; J1250; 93350

== ENCOUNTER → 2017-08-24 | Outpatient (CLI) | payer OTHER | END | disposition home or self-care (01) | LOC: RADMRIMAIN 16:40 | PROVIDERS: ATTEND Nurse Practitioner Acute Care | DX: Z53.9 Procedure and treatment not carried out, unspecified reason (principal) ==

== ENCOUNTER 2017-08-29 07:36 | Day surgery (SDC) | payer OTHER ==
[2017-08-25 11:07] VITALS: BMI 53.3
[~2017-08-29 07:36] MED LIST: LACTATED RINGERS 1,000 ML IV SCH
[2017-08-29 08:18] VITALS: TEMP 97.6
[2017-08-29] MEDS ORDERED: LIDOCAINE 1% 20 ML VIAL (10MG/ML) FOR IV START SQ ONE (08:18)
[2017-08-29] MEDS ORDERED: LACTATED RINGERS 1,000 ML IV ONE (08:20)
[2017-08-29 08:26] LABS: Glucose,Whole Blood 133 mg/dL (75-99)
[2017-08-29] MEDS ORDERED: MIDAZOLAM 2 MG/2 ML VIAL IVP ONE (08:27)
[2017-08-29] MEDS ORDERED: fentaNYL (PF) 50 MCG/ML 2 ML AMP ONE (08:47)
[2017-08-29] MEDS ORDERED: PROPOFOL 10 MG/ML 20 ML VIAL IV ONE (08:47)
[2017-08-29] MEDS ORDERED: LIDOCAINE 1% INJ 10MG/ML (20 ML MDV) ONE (08:47)
--- NOTE | 2017-08-29 09:16 | P.PCN ---
Date of Procedure: 08/29/17 Procedure(s) Performed: Procedure: Esophagogastroduodenoscopy and biopsy. Preoperative diagnosis: Gastroesophageal reflux disease and history of Lyn' s esophagus.. Postoperative diagnosis: 1. Small sliding hiatal hernia with short segment of Lyn's esophagus. 2. Multiple biopsies obtained from the esophagus proximal and distal to the GE junction.. Preparation and sedation: Was provided by anesthesia. Brief clinical history: The patient is a 42-year-old female who is scheduled for this evaluation because of ongoing issues with reflux requiring therapy with symptoms despite therapy. No overt bleeding or other alarm symptoms. The patient had upper endoscopy while in second now in the summer and was found to have Lyn's esophagus and it was recommended repeat exam in 6 months. This evaluation is to assess for dysplasia, otherwise manifestations of reflux disease, peptic ulcer disease or other pathology. Procedure: With the patient on her left lateral decubitus position and after informed consent and adequate sedation, I passed the Olympus-GIF 160 video upper endoscope through the cricopharyngeus down the esophagus. GE junction was irregular and it was at around 36-37 cm from the incisors and there was a short segment of Lyn's esophagus and a small sliding hiatal hernia. The distal esophagus did not show any evidence of esophagitis. There were no strictures. The endoscope was then passed into the stomach which was insufflated with air and inspected in detail including the retroflex view in the cardia. There was no obvious abnormalities in the stomach. Pyloric channel , duodenal bulb, post bulbar area and descending duodenum appeared within normal limits. Because of her symptoms I obtained multiple biopsies from the esophagus proximal and distal to the GE junction. Then the endoscope was withdrawn. The patient tolerated the procedure well. Plan: The patient was reassured. Will await pathology results. In the meantime , she is to continue antireflux diet and measures and to continue acid suppressive therapy. She will follow-up with you as planned. I anticipate repeating an upper endoscopy in around 2-3 years.
[2017-08-29 09:43] VITALS: BP 104/72; PULSE 80; RESP 20
== END 2017-08-29 10:04 | disposition home or self-care (01) ==
LOC: ORWHC2ENDO 07:36
DX: K22.70 Barrett's esophagus without dysplasia (principal); K44.9 Diaphragmatic hernia without obstruction or gangrene; K21.9 Gastro-esophageal reflux disease without esophagitis; J45.909 Unspecified asthma, uncomplicated; M19.90 Unspecified osteoarthritis, unspecified site; G47.33 Obstructive sleep apnea (adult) (pediatric); Z99.89 Dependence on other enabling machines and devices; E78.5 Hyperlipidemia, unspecified; E66.9 Obesity, unspecified; Z68.43 Body mass index [BMI] 50.0-59.9, adult; R56.9 Unspecified convulsions; M79.7 Fibromyalgia; E11.42 Type 2 diabetes mellitus with diabetic polyneuropathy; M54.5 Low back pain; G89.29 Other chronic pain; Z79.84 Long term (current) use of oral hypoglycemic drugs; Z79.891 Long term (current) use of opiate analgesic; Z79.51 Long term (current) use of inhaled steroids; Z79.899 Other long term (current) drug therapy; Z88.6 Allergy status to analgesic agent; Z88.8 Allergy status to other drugs, medicaments and biological substances; Z91.048 Other nonmedicinal substance allergy status
CPT/HCPCS: 88305; 43239; J2250; J2001; J3010; J2704

== ENCOUNTER 2017-10-10 01:41 | Observation (INO) | payer OTHER ==
[2017-10-10] MEDS ORDERED: ASPIRIN 81 MG PO STA (02:01)
[2017-10-10] MEDS ORDERED: NITROGLYCERIN OINT 1 INCH/GM PACKET TOPICAL STA (02:01)
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
[2017-10-10 02:16] LABS: Basophils % (A) 0 %; Eosinophils # (A) 0.3 k/uL (0-0.7); Eosinophils % (A) 2 %; HCT 43.4 % (34.0-46.0); Lymphocytes # (A) 3.4 k/uL (1.0-4.8); Lymphocytes % (A) 25 %; MCH 28.4 pg (25.0-35.0); MCHC 32.2 g/dL (31.0-37.0); Monocytes # (A) 0.7 k/uL (0-1.0); Monocytes % (A) 5 %; Neutrophils # (A) 8.9 k/uL (1.3-7.7); Neutrophils % (A) 66 %; Platelet Count 375 k/uL (150-450); RBC 4.93 m/uL (3.80-5.40); RDW 14.9 % (11.5-15.5); WBC 13.4 k/uL (3.8-10.6)
--- NOTE | 2017-10-10 02:23 | XR ---
EXAMINATION TYPE: XR chest 2V DATE OF EXAM: 10/10/2017 COMPARISON: 08/18/2017 HISTORY: Chest pain TECHNIQUE: Frontal and lateral views of the chest are obtained. FINDINGS: Heart and mediastinum are normal. Lungs are clear. Costophrenic angles are clear. Bony tho rax is intact. There are chest leads. IMPRESSION: Normal chest. No change.
[2017-10-10 02:35] LABS: INR 0.9 (<1.2); Partial Thromboplastin Time 23.1 sec (22.0-30.0); Prothrombin Time 9.4 sec (9.0-12.0)
[2017-10-10 02:37] LABS: ALT 25 U/L (9-52); AST 23 U/L (14-36); Albumin 3.5 g/dL (3.5-5.0); Alkaline Phosphatase 75 U/L (38-126); Anion Gap 14 mmol/L; Blood Urea Nitrogen 11 mg/dL (7-17); Calcium 9.4 mg/dL (8.4-10.2); Carbon Dioxide 19 mmol/L (22-30); Chloride 107 mmol/L (98-107); Glucose 169 mg/dL (74-99); Potassium 4.4 mmol/L (3.5-5.1); Sodium 140 mmol/L (137-145); Total Bilirubin 0.3 mg/dL (0.2-1.3); Total Protein 5.9 g/dL (6.3-8.2)
[2017-10-10 02:45] LABS: Creatine Kinase 28 U/L (30-135)
[2017-10-10 02:58] LABS: Creatine Kinase MB <0.2 ng/mL (0.0-2.4); Troponin I <0.012 ng/mL (0.000-0.034)
[2017-10-10] MEDS ORDERED: NITROGLYCERIN SL TABS 0.4 MG TAB SUBLINGUAL PRN (03:06)
[2017-10-10 03:52] VITALS: BMI 52.7
[2017-10-10 06:45] LABS: Glucose,Whole Blood 144 mg/dL (75-99)
[2017-10-10 07:41] VITALS: RESP 16
[2017-10-10 08:40] LABS: Creatine Kinase 28 U/L (30-135)
[2017-10-10 08:51] LABS: Creatine Kinase MB <0.2 ng/mL (0.0-2.4); Troponin I <0.012 ng/mL (0.000-0.034)
[2017-10-10 11:41] LABS: Hemoglobin A1C 7.5 % (4.0-6.0)
[2017-10-10 11:51] VITALS: TEMP 98
[2017-10-10] MEDS: NITROGLYCERIN OINT 1 INCH/GM PACKET TOPICAL SCH (12:12)
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
[2017-10-10 12:30] LABS: Glucose,Whole Blood 220 mg/dL (75-99)
[2017-10-10] MEDS ORDERED: DOCUSATE 100 MG CAP PO PRN (14:41)
[2017-10-10] MEDS ORDERED: BUTALB/APAP/CAFF 50-325-40MG TAB PO PRN (14:41)
[2017-10-10] MEDS ORDERED: ALBUTEROL NEBULIZED 2.5 MG/3 ML INHALATION PRN (14:41)
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
[2017-10-10] MEDS ORDERED: DULoxetine HCL 60 MG CAPSULE.DR PO SCH (14:45)
[2017-10-10 15:07] LABS: Creatine Kinase 30 U/L (30-135)
[2017-10-10 15:20] LABS: Creatine Kinase MB <0.2 ng/mL (0.0-2.4); Troponin I <0.012 ng/mL (0.000-0.034)
[2017-10-10] MEDS ORDERED: DIVALPROEX ER 500 MG TAB.ER.24H PO SCH (16:00)
--- NOTE | 2017-10-10 16:47 | P.DS ---
Providers Date of admission: 10/10/17 03:06 Attending physician: Laura Pandya Consults: 10/10/17 03:06 Consult Physician Urgent Consulting Provider: [facility] Consult Reason/Comments: Chest pain Do you want consulting provider notified?: Yes Primary care physician: [facility] Course: Ms. Oliveira is a 2-year-old female with a past medical history of asthma, diabetes mellitus, fibromyalgia, GERD, hypertension, hyperlipidemia, obesity, sleep apnea, history of pseudoseizures coming into the hospital with a chief complaint of chest pain. Patient states she was in her bed last night and was playing a video games and then developed some chest pressure-like symptoms. Patient states that the pain was 5-6 out of 10 in intensity and also it radiated to the left arm with mild difficulty in breathing. She also endorses mild dizziness nausea and diaphoresis with the chest pain. Patient did take nitro paste after which her chest pain has resolved and then she started to have headaches. So the patient came into the ED for further evaluation. On reviewing her past records she had a recent echocardiogram performed in July 2017 with left ejection fraction showing 55%. And she also underwent a dobutamine stress echocardiogram that was negative for any reversible ischemia. Currently the patient is lying in bed appears to be comfortable. She does not have any complaints. Patient does not complain of ongoing chest pain and difficulty in breathing. Patient denies having any lower extremity swelling. Patient denies having abdominal pain nausea vomiting or diarrhea. No dysuria or hematuria. Patient had serial troponins and EKGs done that was within normal limits. D- dimer 0.27. As she recently had a stress test that was within normal limits, she was cleared by cardiology. Discharge DIAGNOSIS Atypical chest pain Type 2 diabetes mellitus Asthma Pseudoseizures Sleep apnea Hyperlipidemia GERD Nicotine dependence Morbid obesity with BMI of 52.8 Anxiety and bipolar disorder No change in her home medications made today. Patient is being discharged home in a stable condition on her home medication regimen. She is advised to follow up with her PCP in 2-3 days. Plan - Discharge Summary Discharge Rx Participant: No New Discharge Prescriptions: Continue Docusate [Colace] 100 mg PO HS PRN PRN Reason: Constipation Albuterol Inhaler [Ventolin Hfa Inhaler] 2 puff INHALATION RT-Q6H PRN PRN Reason: Bronchodilation Omeprazole [PriLOSEC] 20 mg PO BID Montelukast Sodium [Singulair] 10 mg PO HS DULoxetine HCL [Cymbalta] 60 mg PO DAILY Topiramate 100 mg PO BID oxyCODONE-APAP 7.5-325MG [Percocet 7.5-325 mg] 1 tab PO BID PRN PRN Reason: Pain metFORMIN HCL [Glucophage] 1,000 mg PO BID Pregabalin [Lyrica] 150 mg PO BID Ergocalciferol (Vitamin D2) [Vitamin D2] 50,000 unit PO SIMON Budesonide/Formoterol Fumarate [Symbicort 160-4.5 Mcg Inhaler] 2 puff INHALATION RT-BID Atorvastatin [Lipitor] 40 mg PO HS Ipratropium-Albuterol Nebulize [Duoneb 0.5 mg-3 mg/3 ml Soln] 3 ml INHALATION RT-Q4H PRN PRN Reason: Shortness Of Breath Divalproex ER [Depakote ER] 500 mg PO TID QUEtiapine XR [SEROquel XR] 200 mg PO HS Fenofibrate Nanocrystallized [Tricor] 145 mg PO HS #30 tablet Butalb/APAP/Caff 50-325-40Mg [Fioricet 50-325-40] 1 tab PO Q4H PRN PRN Reason: Migraine Headache Ibuprofen [Motrin] 800 mg PO TID PRN PRN Reason: Pain Methocarbamol [Robaxin] 750 mg PO BID Discharge Medication List Albuterol Inhaler [Ventolin Hfa Inhaler] 2 puff INHALATION RT-Q6H PRN 12/06/13 [ History] Docusate [Colace] 100 mg PO HS PRN 12/06/13 [History] Omeprazole [PriLOSEC] 20 mg PO BID 12/06/13 [History] Montelukast Sodium [Singulair] 10 mg PO HS 03/20/14 [History] DULoxetine HCL [Cymbalta] 60 mg PO DAILY 06/09/15 [History] Topiramate 100 mg PO BID 10/07/15 [History] Atorvastatin [Lipitor] 40 mg PO HS 07/20/17 [History] Budesonide/Formoterol Fumarate [Symbicort 160-4.5 Mcg Inhaler] 2 puff INHALATION RT-BID 07/20/17 [History] Divalproex ER [Depakote ER] 500 mg PO TID 07/20/17 [History] Ergocalciferol (Vitamin D2) [Vitamin D2] 50,000 unit PO SIMON 07/20/17 [History] Ipratropium-Albuterol Nebulize [Duoneb 0.5 mg-3 mg/3 ml Soln] 3 ml INHALATION RT -Q4H PRN 07/20/17 [History] Pregabalin [Lyrica] 150 mg PO BID 07/20/17 [History] metFORMIN HCL [Glucophage] 1,000 mg PO BID 07/20/17 [History] oxyCODONE-APAP 7.5-325MG [Percocet 7.5-325 mg] 1 tab PO BID PRN 07/20/17 [ History] QUEtiapine XR [SEROquel XR] 200 mg PO HS 08/18/17 [History] Fenofibrate Nanocrystallized [Tricor] 145 mg PO HS #30 tablet 08/19/17 [Rx] Butalb/APAP/Caff 50-325-40Mg [Fioricet 50-325-40] 1 tab PO Q4H PRN 10/10/17 [ History] Ibuprofen [Motrin] 800 mg PO TID PRN 10/10/17 [History] Methocarbamol [Robaxin] 750 mg PO BID 10/10/17 [History] Follow up Appointment(s)/Referral(s): Ayanna Smith MD [Primary Care Provider] - 1-2 days Discharge Disposition: HOME SELF-CARE
[2017-10-10 16:59] VITALS: BP 95/41; PULSE 60
[2017-10-10] MEDS ORDERED: metFORMIN 500 MG TAB PO SCH (17:30)
[2017-10-10] MEDS ORDERED: PANTOPRAZOLE 40 MG TABLET PO SCH (17:30)
[2017-10-10] MEDS ORDERED: SYMBICORT 160-4.5 MCG INHALER INHALATION SCH (20:00)
[2017-10-10] MEDS ORDERED: MONTELUKAST 10 MG TAB PO SCH (21:00)
[2017-10-10] MEDS ORDERED: TOPIRAMATE 100 MG TAB PO SCH (21:00)
[2017-10-10] MEDS ORDERED: METHOCARBAMOL 750 MG TAB PO SCH (21:00)
[2017-10-10] MEDS ORDERED: PREGABALIN 75 MG CAP PO SCH (21:00)
[2017-10-10] MEDS ORDERED: ATORVASTATIN 40 MG TAB PO SCH (21:00)
[2017-10-10] MEDS ORDERED: FENOFIBRATE 160 MG TAB PO SCH (21:00)
[2017-10-10] MEDS ORDERED: QUEtiapine 100 MG TAB PO SCH (21:00)
[2017-10-11] MEDS ORDERED: ASPIRIN 325 MG TAB PO SCH (09:00)
[2017-10-16] MEDS ORDERED: ERGOCALCIFEROL 50,000 UNIT CAP PO SCH (12:00)
== END 2017-10-10 17:59 | disposition home or self-care (01) ==
LOC: EC 01:41 → 3OBS 03:06
PROVIDERS: ADMIT Hospitalist; ATTEND Hospitalist
DX: R07.89 Other chest pain (principal); R42 Dizziness and giddiness; R51 Headache; R61 Generalized hyperhidrosis; R11.0 Nausea; E11.42 Type 2 diabetes mellitus with diabetic polyneuropathy; J45.909 Unspecified asthma, uncomplicated; M79.7 Fibromyalgia; F44.5 Conversion disorder with seizures or convulsions; K21.9 Gastro-esophageal reflux disease without esophagitis; G47.33 Obstructive sleep apnea (adult) (pediatric); Z99.89 Dependence on other enabling machines and devices; E78.5 Hyperlipidemia, unspecified; M19.90 Unspecified osteoarthritis, unspecified site; K76.0 Fatty (change of) liver, not elsewhere classified; M54.9 Dorsalgia, unspecified; G89.29 Other chronic pain; F31.9 Bipolar disorder, unspecified; F43.10 Post-traumatic stress disorder, unspecified; F17.200 Nicotine dependence, unspecified, uncomplicated; E66.01 Morbid (severe) obesity due to excess calories; Z68.43 Body mass index [BMI] 50.0-59.9, adult; F41.9 Anxiety disorder, unspecified; F60.3 Borderline personality disorder; F20.9 Schizophrenia, unspecified; F40.240 Claustrophobia; K22.70 Barrett's esophagus without dysplasia; K44.9 Diaphragmatic hernia without obstruction or gangrene; Z98.1 Arthrodesis status; Z87.01 Personal history of pneumonia (recurrent); Z85.41 Personal history of malignant neoplasm of cervix uteri; Z79.84 Long term (current) use of oral hypoglycemic drugs; Z79.51 Long term (current) use of inhaled steroids; Z79.899 Other long term (current) drug therapy; Z88.5 Allergy status to narcotic agent; Z88.8 Allergy status to other drugs, medicaments and biological substances; Z91.048 Other nonmedicinal substance allergy status; Z87.828 Personal history of other (healed) physical injury and trauma; Z82.49 Family history of ischemic heart disease and other diseases of the circulatory system; Z83.2 Family history of diseases of the blood and blood-forming organs and certain disorders involving the immune mechanism; Z83.3 Family history of diabetes mellitus; Z84.1 Family history of disorders of kidney and ureter
CPT/HCPCS: 99285 ×2; 36415; 93005; 85379; 80053; 82550; 82553; 83735; 84484; 85025; 85610; 85730; 83036; 71046; G0378

== ENCOUNTER 2017-10-25 00:02 | Emergency (ER) | payer OTHER ==
[2017-10-25 00:07] VITALS: TEMP 97.7
[2017-10-25 00:50] LABS: Basophils # (A) 0.1 k/uL (0-0.2); Basophils % (A) 0 %; Eosinophils # (A) 0.2 k/uL (0-0.7); Eosinophils % (A) 1 %; HGB 14.4 gm/dL (11.4-16.0); Lymphocytes # (A) 3.1 k/uL (1.0-4.8); Lymphocytes % (A) 22 %; MCH 28.7 pg (25.0-35.0); MCHC 33.4 g/dL (31.0-37.0); MCV 85.7 fL (80.0-100.0); Mean Platelet Volume 7.6; Monocytes # (A) 0.5 k/uL (0-1.0); Monocytes % (A) 4 %; Neutrophils # (A) 9.8 k/uL (1.3-7.7); Neutrophils % (A) 71 %; Platelet Count 322 k/uL (150-450); RBC 5.02 m/uL (3.80-5.40); RDW 14.6 % (11.5-15.5); WBC 13.8 k/uL (3.8-10.6)
[2017-10-25 01:02] LABS: ALT 31 U/L (9-52); AST 17 U/L (14-36); Albumin 3.7 g/dL (3.5-5.0); Alkaline Phosphatase 88 U/L (38-126); Anion Gap 15 mmol/L; Blood Urea Nitrogen 7 mg/dL (7-17); Calcium 9.2 mg/dL (8.4-10.2); Carbon Dioxide 20 mmol/L (22-30); Chloride 108 mmol/L (98-107); Glucose 112 mg/dL (74-99); Potassium 3.6 mmol/L (3.5-5.1); Sodium 143 mmol/L (137-145); Total Bilirubin 0.2 mg/dL (0.2-1.3)
[2017-10-25 01:07] LABS: Valproic Acid (Depakene) 57.6 ug/mL
[2017-10-25] MEDS ORDERED: LORazepam 2 MG/ML INJ IV STA (01:13)
[2017-10-25] MEDS ORDERED: DIVALPROEX 500 MG TABLET.DR PO STA (01:19)
[2017-10-25 01:27] VITALS: BP 123/69; PULSE 78; RESP 15
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
== END 2017-10-25 02:06 | disposition home or self-care (01) ==
LOC: EC 00:02
DX: G40.909 Epilepsy, unspecified, not intractable, without status epilepticus (principal); J45.909 Unspecified asthma, uncomplicated; M79.7 Fibromyalgia; K21.9 Gastro-esophageal reflux disease without esophagitis; E78.5 Hyperlipidemia, unspecified; M19.90 Unspecified osteoarthritis, unspecified site; E11.40 Type 2 diabetes mellitus with diabetic neuropathy, unspecified; K22.70 Barrett's esophagus without dysplasia; F20.9 Schizophrenia, unspecified; F43.10 Post-traumatic stress disorder, unspecified; F31.9 Bipolar disorder, unspecified; F41.9 Anxiety disorder, unspecified; F17.200 Nicotine dependence, unspecified, uncomplicated; Z88.5 Allergy status to narcotic agent; Z88.8 Allergy status to other drugs, medicaments and biological substances; Z91.048 Other nonmedicinal substance allergy status; Z79.51 Long term (current) use of inhaled steroids; Z79.84 Long term (current) use of oral hypoglycemic drugs; Z79.899 Other long term (current) drug therapy
CPT/HCPCS: 99284; 96374; 36415; 80164; 80053; 85025; J2060

== ENCOUNTER 2017-12-20 08:26 | Emergency (ER) | payer OTHER ==
[2017-12-20 08:31] VITALS: RESP 16; TEMP 97.9
[2017-12-20] MEDS ORDERED: ONDANSETRON ODT 4 MG TAB PO STA (08:56)
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
--- NOTE | 2017-12-20 09:32 | XR ---
EXAM TYPE: LUMBAR SPINE X RAY SERIES COMPARISON: NONE HISTORY: Pain TECHNIQUE: 3 views are submitted. FINDINGS: Alignment is anatomic. The pedicles are intact. The transverse processes are intact. There is no s pondylolysis or spondylolisthesis. Metallic density overlying the right upper quadrant could be rela chiquita to previous surgery or superficial to the patient. IMPRESSION: 1. No acute process.
[2017-12-20] MEDS ORDERED: LIDOCAINE 5% PATCH TOPICAL STA (10:07)
[2017-12-20] MEDS ORDERED: MORPHINE SULFATE 4 MG/ML SYRINGE IM STA (10:07)
[2017-12-20 10:39] VITALS: BP 112/54; PULSE 73
== END 2017-12-20 10:49 | disposition home or self-care (01) ==
LOC: EC 08:26
DX: M54.5 Low back pain (principal); G89.29 Other chronic pain; R56.9 Unspecified convulsions; J45.909 Unspecified asthma, uncomplicated; E11.9 Type 2 diabetes mellitus without complications; M79.7 Fibromyalgia; K21.9 Gastro-esophageal reflux disease without esophagitis; E78.5 Hyperlipidemia, unspecified; M19.90 Unspecified osteoarthritis, unspecified site; G62.9 Polyneuropathy, unspecified; G47.33 Obstructive sleep apnea (adult) (pediatric); F41.9 Anxiety disorder, unspecified; F31.9 Bipolar disorder, unspecified; F20.9 Schizophrenia, unspecified; F43.10 Post-traumatic stress disorder, unspecified; F17.200 Nicotine dependence, unspecified, uncomplicated; Z85.41 Personal history of malignant neoplasm of cervix uteri; Z99.89 Dependence on other enabling machines and devices; Z90.49 Acquired absence of other specified parts of digestive tract; Z90.710 Acquired absence of both cervix and uterus; Z98.890 Other specified postprocedural states; Z79.51 Long term (current) use of inhaled steroids; Z79.84 Long term (current) use of oral hypoglycemic drugs; Z79.899 Other long term (current) drug therapy; Z88.6 Allergy status to analgesic agent; Z88.8 Allergy status to other drugs, medicaments and biological substances; Z91.048 Other nonmedicinal substance allergy status
CPT/HCPCS: 72100; 99285; 96372; J2270

== ENCOUNTER 2018-01-11 01:06 | Observation (INO) | payer OTHER ==
[2018-01-11] MEDS ORDERED: SODIUM CHLORIDE 0.9% 1,000 ML IV STA (01:21)
[2018-01-11] MEDS ORDERED: methylPREDNISolone SOD SUCCI 125 MG/2 ML VIAL IV STA (01:21)
[2018-01-11] MEDS ORDERED: IPRATROPIUM-ALBUTEROL 3 ML NEB INHALATION STA (01:21)
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
[2018-01-11 01:38] LABS: Basophils % (A) 0 %; Eosinophils % (A) 0 %; HCT 38.6 % (34.0-46.0); HGB 12.4 gm/dL (11.4-16.0); Hypochromasia Slight; Lymphocytes # (A) 1.5 k/uL (1.0-4.8); Lymphocytes % (A) 23 %; MCH 29.1 pg (25.0-35.0); MCHC 32.1 g/dL (31.0-37.0); MCV 90.9 fL (80.0-100.0); Mean Platelet Volume 9.2; Monocytes # (A) 0.6 k/uL (0-1.0); Monocytes % (A) 9 %; Neutrophils # (A) 4.3 k/uL (1.3-7.7); Neutrophils % (A) 65 %; Platelet Count 263 k/uL (150-450); RBC 4.25 m/uL (3.80-5.40); RDW 15.2 % (11.5-15.5); WBC 6.7 k/uL (3.8-10.6)
--- NOTE | 2018-01-11 01:49 | XR ---
EXAMINATION TYPE: XR chest 2V DATE OF EXAM: 01/11/2018 COMPARISON: 08/18/2017 HISTORY: Chest pain TECHNIQUE: Frontal and lateral views of the chest are obtained. FINDINGS: Heart and mediastinum are normal. Lungs are clear. Diaphragm is normal. There are chest le ads. IMPRESSION: Normal chest. No change.
[2018-01-11 02:02] LABS: ALT 7 U/L (9-52); AST 54 U/L (14-36); Albumin 3.8 g/dL (3.5-5.0); Alkaline Phosphatase 40 U/L (38-126); Anion Gap 7 mmol/L; Blood Urea Nitrogen 11 mg/dL (7-17); Calcium 9.1 mg/dL (8.4-10.2); Carbon Dioxide 20 mmol/L (22-30); Chloride 110 mmol/L (98-107); Glucose 184 mg/dL (74-99); Sodium 137 mmol/L (137-145); Total Bilirubin 1.4 mg/dL (0.2-1.3); Total Protein 6.7 g/dL (6.3-8.2)
[2018-01-11] MEDS ORDERED: NICOTINE POLACRILEX 2 MG GUM BUCCAL PRN (03:10)
[2018-01-11 03:12] LABS: D-Dimer 0.29 mg/L FEU (<0.60); Partial Thromboplastin Time 22.8 sec (22.0-30.0); Prothrombin Time 9.6 sec (9.0-12.0)
--- NOTE | 2018-01-11 03:17 | US ---
EXAMINATION TYPE: US gallbladder DATE OF EXAM: 01/11/2018 COMPARISON: NONE CLINICAL HISTORY: Pain, elevated labs. Elevated liver enzymes. Cholecystectomy. EXAM MEASUREMENTS: Liver Length: 25.2 cm Gallbladder Wall: Surgically absent cm CBD: 0.8 cm Right Kidney: 11.2 x 4.6 x 5.2 cm Pancreas: Tail obscured by overlying bowel gas Liver: Increased attenuation, decreased visualization of vessels suggestive of fatty infiltrate. Hep atomegaly 25.2 cm. Gallbladder: Surgically absent CBD: wnl Right Kidney: No hydronephrosis or masses seen IMPRESSION: No dilated ducts. Hepatomegaly with moderately enlarged liver that measures 25 cm in lissette th.
[2018-01-11] MEDS: IPRATROPIUM-ALBUTEROL 3 ML NEB INHALATION PRN ×4 (03:53→15:52)
[2018-01-11] MEDS: DIVALPROEX ER 500 MG TAB.ER.24H PO SCH ×4 (05:14→21:29)
[2018-01-11] MEDS: METHOCARBAMOL 750 MG TAB PO SCH ×3 (05:14→21:28)
[2018-01-11] MEDS: PREGABALIN 75 MG CAP PO SCH ×3 (05:15→21:37)
[2018-01-11] MEDS: oxyCODONE-APAP 7.5-325MG 1 EACH TAB PO PRN ×2 (08:13→21:39)
[2018-01-11] MEDS: TOPIRAMATE 100 MG TAB PO SCH ×2 (08:13→21:29)
[2018-01-11 08:15] LABS: Glucose,Whole Blood 245 mg/dL (75-99)
[2018-01-11] MEDS ORDERED: predniSONE 20 MG TAB PO SCH (09:00)
[2018-01-11] MEDS ORDERED: IBUPROFEN 800 MG TAB PO PRN (11:51)
[2018-01-11] MEDS ORDERED: BUTALB/APAP/CAFF 50-325-40MG TAB PO PRN (11:51)
[2018-01-11] MEDS ORDERED: ALBUTEROL INHALER 60 PUFF/8 GM INHALER INHALATION PRN (11:51)
[2018-01-11] MEDS ORDERED: ALBUTEROL NEBULIZED 2.5 MG/3 ML INHALATION PRN (11:51)
[2018-01-11] MEDS ORDERED: hydrOXYzine PAMOATE 25 MG CAP PO PRN (11:51)
[2018-01-11] MEDS ORDERED: DOCUSATE 100 MG CAP PO PRN (11:51)
[2018-01-11] MEDS: DOXYCYCLINE MONOHYDRATE 100 MG CAPSULE PO SCH ×2 (12:13→21:28)
[2018-01-11] MEDS ORDERED: PANTOPRAZOLE 40 MG TABLET PO SCH (12:30)
[2018-01-11] MEDS ORDERED: DULoxetine HCL 60 MG CAPSULE.DR PO SCH (12:30)
[2018-01-11] MEDS: INSULIN ASPART 100 UNIT/ML 1 ML 10 ML VIAL SQ SCH ×3 (13:21→21:29)
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
[2018-01-11 14:50] VITALS: RESP 20
[2018-01-11 16:43] LABS: Glucose,Whole Blood 283 mg/dL (75-99)
[2018-01-11 17:05] LABS: Glucose,Whole Blood 232 mg/dL (75-99)
[2018-01-11 19:22] LABS: Hemoglobin A1C 6.2 % (4.0-6.0)
[2018-01-11] MEDS ORDERED: SYMBICORT 160-4.5 MCG INHALER INHALATION SCH (20:00)
[2018-01-11] MEDS ORDERED: FENOFIBRATE 160 MG TAB PO SCH (21:00)
[2018-01-11] MEDS ORDERED: MONTELUKAST 10 MG TAB PO SCH (21:00)
[2018-01-11] MEDS ORDERED: ATORVASTATIN 40 MG TAB PO SCH (21:00)
[2018-01-11] MEDS ORDERED: metFORMIN 500 MG TAB PO SCH (21:00)
[2018-01-11 21:29] LABS: Glucose,Whole Blood 191 mg/dL (75-99)
[2018-01-11 22:20] VITALS: BP 103/69; PULSE 85; TEMP 96.8
[2018-01-12] MEDS ORDERED: predniSONE 20 MG TAB PO SCH (09:00)
[2018-01-12] MEDS ORDERED: LIDOCAINE 5% PATCH TOPICAL SCH (09:00)
--- NOTE | 2018-01-13 11:49 | P.DS ---
Providers Date of admission: 01/11/18 03:14 Expected date of discharge: 01/11/18 Attending physician: Laura Pandya Consults: 01/11/18 11:54 Consult Physician Routine Consulting Provider: Alex Thomson Consult Reason/Comments: COPD Do you want consulting provider notified?: Yes Primary care physician: [facility] Course: Patient left AMA Plan - Discharge Summary Discharge Rx Participant: No New Discharge Prescriptions: No Action Docusate [Colace] 100 mg PO HS PRN PRN Reason: Constipation Albuterol Inhaler [Ventolin Hfa Inhaler] 2 puff INHALATION RT-Q6H PRN PRN Reason: Bronchodilation Omeprazole [PriLOSEC] 20 mg PO BID Montelukast Sodium [Singulair] 10 mg PO HS DULoxetine HCL [Cymbalta] 60 mg PO DAILY Topiramate 100 mg PO BID oxyCODONE-APAP 7.5-325MG [Percocet 7.5-325 mg] 1 tab PO BID PRN PRN Reason: Pain metFORMIN HCL [Glucophage] 1,000 mg PO BID Pregabalin [Lyrica] 150 mg PO BID Ergocalciferol (Vitamin D2) [Vitamin D2] 50,000 unit PO SIMON Budesonide/Formoterol Fumarate [Symbicort 160-4.5 Mcg Inhaler] 2 puff INHALATION RT-BID Atorvastatin [Lipitor] 40 mg PO HS Fenofibrate Nanocrystallized [Tricor] 145 mg PO HS #30 tablet Butalb/APAP/Caff 50-325-40Mg [Fioricet 50-325-40] 1 tab PO Q8H PRN PRN Reason: Migraine Headache Ibuprofen [Motrin] 800 mg PO TID PRN PRN Reason: Pain Methocarbamol [Robaxin] 750 mg PO BID risperiDONE [RisperDAL] 1 mg PO HS Ipratropium Nebulized [Atrovent Nebulized] 0.5 mg INHALATION RT-QID PRN PRN Reason: Shortness Of Breath Albuterol Nebulized [Ventolin Nebulized] 2.5 mg INHALATION RT-QID PRN PRN Reason: Shortness Of Breath hydrOXYzine PAMOATE 25 mg PO BID PRN PRN Reason: Anxiety Divalproex Sodium [Depakote] 500 mg PO TID Discharge Medication List Albuterol Inhaler [Ventolin Hfa Inhaler] 2 puff INHALATION RT-Q6H PRN 12/06/13 [ History] Docusate [Colace] 100 mg PO HS PRN 12/06/13 [History] Omeprazole [PriLOSEC] 20 mg PO BID 12/06/13 [History] Montelukast Sodium [Singulair] 10 mg PO HS 03/20/14 [History] DULoxetine HCL [Cymbalta] 60 mg PO DAILY 06/09/15 [History] Topiramate 100 mg PO BID 10/07/15 [History] Atorvastatin [Lipitor] 40 mg PO HS 07/20/17 [History] Budesonide/Formoterol Fumarate [Symbicort 160-4.5 Mcg Inhaler] 2 puff INHALATION RT-BID 07/20/17 [History] Ergocalciferol (Vitamin D2) [Vitamin D2] 50,000 unit PO SIMON 07/20/17 [History] Pregabalin [Lyrica] 150 mg PO BID 07/20/17 [History] metFORMIN HCL [Glucophage] 1,000 mg PO BID 07/20/17 [History] oxyCODONE-APAP 7.5-325MG [Percocet 7.5-325 mg] 1 tab PO BID PRN 07/20/17 [ History] Fenofibrate Nanocrystallized [Tricor] 145 mg PO HS #30 tablet 08/19/17 [Rx] Butalb/APAP/Caff 50-325-40Mg [Fioricet 50-325-40] 1 tab PO Q8H PRN 10/10/17 [ History] Ibuprofen [Motrin] 800 mg PO TID PRN 10/10/17 [History] Methocarbamol [Robaxin] 750 mg PO BID 10/10/17 [History] Albuterol Nebulized [Ventolin Nebulized] 2.5 mg INHALATION RT-QID PRN 12/20/17 [ History] Ipratropium Nebulized [Atrovent Nebulized] 0.5 mg INHALATION RT-QID PRN [History] hydrOXYzine PAMOATE 25 mg PO BID PRN 12/20/17 [History] risperiDONE [RisperDAL] 1 mg PO HS 12/20/17 [History] Divalproex Sodium [Depakote] 500 mg PO TID 01/13/18 [History] Follow up Appointment(s)/Referral(s): Ayanna Smith MD [Primary Care Provider] - 1-2 days Discharge Disposition: Left Against Medical Advice
[2018-01-15] MEDS ORDERED: ERGOCALCIFEROL 50,000 UNIT CAP PO SCH (09:00)
== END 2018-01-11 23:09 | disposition left against medical advice (07) ==
LOC: EC 01:06 → 5MS5E 03:14 → 4MS4W 07:28
PROVIDERS: ADMIT Hospitalist; ATTEND Hospitalist
DX: J44.1 Chronic obstructive pulmonary disease with (acute) exacerbation (principal); F17.210 Nicotine dependence, cigarettes, uncomplicated; G47.33 Obstructive sleep apnea (adult) (pediatric); K29.70 Gastritis, unspecified, without bleeding; E11.42 Type 2 diabetes mellitus with diabetic polyneuropathy; F44.5 Conversion disorder with seizures or convulsions; R94.5 Abnormal results of liver function studies; R16.0 Hepatomegaly, not elsewhere classified; G89.4 Chronic pain syndrome; M25.551 Pain in right hip; M25.552 Pain in left hip; M54.9 Dorsalgia, unspecified; M79.7 Fibromyalgia; K21.9 Gastro-esophageal reflux disease without esophagitis; E78.5 Hyperlipidemia, unspecified; K22.70 Barrett's esophagus without dysplasia; K44.9 Diaphragmatic hernia without obstruction or gangrene; G43.909 Migraine, unspecified, not intractable, without status migrainosus; M19.90 Unspecified osteoarthritis, unspecified site; F40.240 Claustrophobia; E66.01 Morbid (severe) obesity due to excess calories; Z68.43 Body mass index [BMI] 50.0-59.9, adult; F32.9 Major depressive disorder, single episode, unspecified; N83.209 Unspecified ovarian cyst, unspecified side; Z99.89 Dependence on other enabling machines and devices; Z79.51 Long term (current) use of inhaled steroids; Z79.899 Other long term (current) drug therapy; Z79.84 Long term (current) use of oral hypoglycemic drugs; Z88.5 Allergy status to narcotic agent; Z88.8 Allergy status to other drugs, medicaments and biological substances; Z91.048 Other nonmedicinal substance allergy status; Z87.828 Personal history of other (healed) physical injury and trauma; Z86.19 Personal history of other infectious and parasitic diseases; Z87.01 Personal history of pneumonia (recurrent); Z85.41 Personal history of malignant neoplasm of cervix uteri; Z90.710 Acquired absence of both cervix and uterus; Z90.49 Acquired absence of other specified parts of digestive tract; Z90.89 Acquired absence of other organs; Z98.1 Arthrodesis status; Z83.3 Family history of diabetes mellitus; Z82.49 Family history of ischemic heart disease and other diseases of the circulatory system; Z82.61 Family history of arthritis; Z83.2 Family history of diseases of the blood and blood-forming organs and certain disorders involving the immune mechanism; Z84.89 Family history of other specified conditions; Z84.1 Family history of disorders of kidney and ureter
CPT/HCPCS: 99285 ×2; 96374 ×2; 96361 ×3; 36415; 94640 ×2; 93005; 85379; 83880; 80053; 84484; 85025; 85610; 85730; 83036; 71046; 76705; G0378; J2930; J7512

== ENCOUNTER 2018-01-12 20:25 | Inpatient (IN) | payer OTHER ==
[2018-01-12 20:43] LABS: Basophils % (A) 0 %; Eosinophils # (A) 0.1 k/uL (0-0.7); Eosinophils % (A) 1 %; HCT 39.3 % (34.0-46.0); HGB 12.3 gm/dL (11.4-16.0); Lymphocytes # (A) 2.4 k/uL (1.0-4.8); Lymphocytes % (A) 28 %; MCH 28.3 pg (25.0-35.0); MCHC 31.5 g/dL (31.0-37.0); Mean Platelet Volume 7.5; Monocytes # (A) 0.5 k/uL (0-1.0); Monocytes % (A) 6 %; Neutrophils # (A) 5.4 k/uL (1.3-7.7); Neutrophils % (A) 63 %; Platelet Count 291 k/uL (150-450); RBC 4.36 m/uL (3.80-5.40); RDW 15.3 % (11.5-15.5); WBC 8.5 k/uL (3.8-10.6)
[2018-01-12 20:51] LABS: ALT 22 U/L (9-52); AST 20 U/L (14-36); Albumin 3.5 g/dL (3.5-5.0); Alkaline Phosphatase 40 U/L (38-126); Anion Gap 11 mmol/L; Blood Urea Nitrogen 13 mg/dL (7-17); Calcium 8.8 mg/dL (8.4-10.2); Carbon Dioxide 21 mmol/L (22-30); Chloride 108 mmol/L (98-107); Glucose 98 mg/dL (74-99); Magnesium 1.7 mg/dL (1.6-2.3); Potassium 3.8 mmol/L (3.5-5.1); Sodium 140 mmol/L (137-145); Total Bilirubin 0.2 mg/dL (0.2-1.3); Total Protein 6.1 g/dL (6.3-8.2)
[2018-01-12 20:54] LABS: Partial Thromboplastin Time 22.1 sec (22.0-30.0); Prothrombin Time 9.6 sec (9.0-12.0)
[2018-01-12 21:02] LABS: Creatine Kinase 35 U/L (30-135)
[2018-01-12] MEDS ORDERED: DEXAMETHASONE SOD PHOSPHATE 10 MG/ML 1 ML VIAL IV STA (21:12)
[2018-01-12] MEDS ORDERED: ALBUTEROL NEBULIZED 2.5 MG/3 ML INHALATION STA (21:12)
[2018-01-12 21:15] LABS: Creatine Kinase MB 0.6 ng/mL (0.0-2.4); Troponin I <0.012 ng/mL (0.000-0.034)
--- NOTE | 2018-01-12 21:41 | XR ---
EXAMINATION: XR chest 2V DATE AND TIME: 01/12/2018 9:00 PM CLINICAL INDICATION: difficulty breathing TECHNIQUE: PA and lateral COMPARISON: 01/11/2018 FINDINGS: The lungs are clear. The pleural spaces are negative. The cardiac silhouette is not enlarged. The remainder of the mediastinal silhouette is unremarkable. The skeletal structures and soft tissues are negative for acute findings. IMPRESSION: NO ACUTE PROCESS.
[2018-01-12] MEDS ORDERED: oxyCODONE-APAP 7.5-325MG 1 EACH TAB PO STA (23:49)
[2018-01-12] MEDS ORDERED: IPRATROPIUM-ALBUTEROL 3 ML NEB INHALATION PRN (23:55)
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
[2018-01-13] MEDS: methylPREDNISolone SOD SUCCI 125 MG/2 ML VIAL IV SCH ×3 (00:05→11:41)
[2018-01-13 00:54] VITALS: BMI 52.0
[2018-01-13] MEDS: IPRATROPIUM-ALBUTEROL 3 ML NEB INHALATION SCH ×4 (08:09→19:43)
[2018-01-13] MEDS: AZITHROMYCIN 500 MG TAB PO SCH (08:34)
[2018-01-13] MEDS: oxyCODONE-APAP 7.5-325MG 1 EACH TAB PO PRN ×2 (08:34→20:49)
[2018-01-13] MEDS ORDERED: hydrOXYzine PAMOATE 25 MG CAP PO PRN (09:48)
[2018-01-13] MEDS ORDERED: DOCUSATE 100 MG CAP PO PRN (09:48)
[2018-01-13] MEDS: PANTOPRAZOLE 40 MG TABLET PO SCH (10:32)
[2018-01-13] MEDS: DIVALPROEX 500 MG TABLET.DR PO SCH ×3 (10:32→21:32)
[2018-01-13] MEDS: METHOCARBAMOL 750 MG TAB PO SCH ×2 (10:52→20:47)
[2018-01-13] MEDS: IBUPROFEN 800 MG TAB PO PRN ×2 (10:52→20:48)
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
[2018-01-13] MEDS: guaiFENesin 600 MG TABLET.ER PO SCH ×2 (11:41→20:47)
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
[2018-01-13] MEDS: TOPIRAMATE 100 MG TAB PO SCH ×2 (12:54→20:47)
[2018-01-13] MEDS: metFORMIN 500 MG TAB PO SCH (17:27)
[2018-01-13 17:34] LABS: Glucose,Whole Blood 213 mg/dL (75-99)
[2018-01-13] MEDS: BUDESONIDE 0.5 MG/2 ML NEBU INHALATION SCH (19:23)
[2018-01-13] MEDS: FORMOTEROL FUMARATE 20 MCG/2 ML NEBU INHALATION SCH (19:23)
[2018-01-13] MEDS ORDERED: SYMBICORT 160-4.5 MCG INHALER INHALATION SCH (20:00)
[2018-01-13] MEDS: ATORVASTATIN 40 MG TAB PO SCH (20:47)
[2018-01-13] MEDS: risperiDONE 1 MG TAB PO SCH (20:47)
[2018-01-13] MEDS: MONTELUKAST 10 MG TAB PO SCH (20:47)
[2018-01-13] MEDS: FENOFIBRATE 160 MG TAB PO SCH (20:48)
[2018-01-13] MEDS: BUTALB/APAP/CAFF 50-325-40MG TAB PO PRN (21:29)
[2018-01-14 01:44] LABS: Hemoglobin A1C 6.2 % (4.0-6.0)
[2018-01-14 06:02] LABS: Glucose,Whole Blood 114 mg/dL (75-99)
[2018-01-14] MEDS: IPRATROPIUM-ALBUTEROL 3 ML NEB INHALATION SCH ×4 (06:21→19:57)
[2018-01-14] MEDS: BUDESONIDE 0.5 MG/2 ML NEBU INHALATION SCH ×2 (08:15→19:57)
[2018-01-14] MEDS: FORMOTEROL FUMARATE 20 MCG/2 ML NEBU INHALATION SCH ×2 (08:15→19:57)
[2018-01-14] MEDS: METHOCARBAMOL 750 MG TAB PO SCH ×2 (09:32→21:21)
[2018-01-14] MEDS: AZITHROMYCIN 500 MG TAB PO SCH (09:32)
[2018-01-14] MEDS: guaiFENesin 600 MG TABLET.ER PO SCH ×2 (09:32→21:21)
[2018-01-14] MEDS: PANTOPRAZOLE 40 MG TABLET PO SCH (09:32)
[2018-01-14] MEDS: TOPIRAMATE 100 MG TAB PO SCH ×2 (09:33→21:20)
[2018-01-14] MEDS: DULoxetine HCL 60 MG CAPSULE.DR PO SCH (09:33)
[2018-01-14] MEDS: DIVALPROEX 500 MG TABLET.DR PO SCH ×3 (09:33→21:49)
[2018-01-14] MEDS: metFORMIN 500 MG TAB PO SCH ×2 (09:33→17:07)
[2018-01-14] MEDS: predniSONE 20 MG TAB PO SCH (09:34)
--- NOTE | 2018-01-14 14:58 | P.PN ---
Subjective Progress Note Date: 01/14/18 The patient came into the emergency room a few days ago and was admitted with COPD exacerbation. That time she left AGAINST MEDICAL ADVICE less than 24 hours being here. The patient returned to the emergency room last night with worsening severity and symptoms. She does have a known history of COPD, asthma and obstructive sleep apnea syndrome which she is on CPAP for. She does not use any home oxygen. She does use home MDIs such as Symbicort and Ventolin she uses nebulizers in the form of DuoNeb and she is also on singular each night. She does not work is disabled. She has a current 1 pack per day smoker for approximately 25 years She was last seen by Dr. Thomson on December 30. And her breathing was relatively stable at that time. Upon examination today she is resting up in bed on 4 L of supplemental oxygen she states she has shortness of breath with exertion and activity as well as extensive conversation. She does complain of a congested cough however is unable to bring up any sputum. Her chest x-ray was reviewed and was negative for any acute processes. She was admitted to the hospital for further evaluation and workup. She was put on antibiotics and IV steroids. The patient states her breathing is slightly improved however not at baseline. She is afebrile no further complaints. Objective - Vital Signs Vital signs: Vital Signs Temp 98.8 F 01/14/18 05:43 Pulse 70 01/14/18 12:07 Resp 16 01/14/18 05:43 BP 102/82 01/14/18 05:43 Pulse Ox 100 01/14/18 05:43 Intake & Output 01/13/18 01/14/18 01/14/18 18:59 06:59 18:59 Intake Total 1200 240 Balance 1200 240 Weight 133.356 kg Intake: Oral 1200 240 Other: Voiding Method Toilet Toilet Toilet # Voids 1 1 2 - Exam GENERAL EXAM: Alert, active, comfortable in no apparent distress, morbidly obese. HEAD: Normocephalic. EYES: Normal reaction of pupils, equal size. NOSE: Clear with pink turbinates. THROAT: No erythema or exudates. NECK: No masses, no JVD. CHEST: No chest wall deformity. LUNGS: Lungs noted to be somewhat diminished with expiratory wheezing scattered throughout. CVS: S1 and S2 normal with no audible mumurs, regular rhythm. ABDOMEN: No hepatosplenomegaly, normal bowel sounds, no guarding or rigidity. EXTREMITIES: Trace edema noted, pedal pulses palpable. CENTRAL NERVOUS SYSTEM: No focal deficits, tone is normal in all 4 extremities. - Labs CBC & Chem 7: 01/12/18 20:30 01/12/18 20:30 Labs: Abnormal Lab Results - Last 24 Hours (Table) 01/12/18 01/13/18 01/14/18 Range/Units 20:30 17:32 06:00 POC Glucose (mg/dL) 213 H 114 H (75-99) mg/dL Hemoglobin A1c 6.2 H (4.0-6.0) % Assessment and Plan Plan: 1. COPD exacerbation - patient was started on, azithromycin, - steroids will be switched to oral, inhalational treatments. - Pulmonology was consulted. 2. Obstructive sleep apnea and uses CPAP machine which will be continued 3. Type 2 diabetes mellitus - patient is expected to have elevated blood sugars because of systemic steroids patient will been sliding scale insulin along with her at home regimen titrate her diabetic regimen depending on her blood sugars here. 4. Fibromyalgia 5. Gastroesophageal reflux disease - Prilosec will be resumed. Patient does have bilateral hip pain only improves with ibuprofen because of which are good and continue ibuprofen as well in spite of her acid reflux 6. Hyperlipidemia; continue with Lipitor 40 mg by mouth daily at bedtime along with lofibra of 160 mg by mouth daily at bedtime 7. DVT prophylaxis; SCDs only CODE STATUS; full code Time with Patient: Greater than 30
[2018-01-14] MEDS: IBUPROFEN 800 MG TAB PO PRN (15:07)
[2018-01-14] MEDS: oxyCODONE-APAP 7.5-325MG 1 EACH TAB PO PRN (15:09)
--- NOTE | 2018-01-14 15:39 | PN ---
PROGRESS NOTE DATE OF SERVICE: 01/14/2018 HISTORY OF PRESENT ILLNESS: The patient is a 42-year-old female who initially came in with problems with COPD and shortness of breath. She had been in the ER a few days prior and left AGAINST MEDICAL ADVICE and then returned to the ED with worsening of her symptoms. She does have asthma in addition and obstructive sleep apnea, where she is on CPAP. She is a smoker, one pack a day, for approximately 25 years. She is on oxygen at this time 4 L nasal cannula, and she has been having problems with wheezing still and complaining of dry mouth, where she will be started on humidified oxygen. She has also had a congested non- productive cough and she will continue with nebulizer and steroids at this time. PHYSICAL EXAMINATION: VITAL SIGNS: Temperature 98.8, heart rate 72, respiratory rate 16. Blood pressure is 102/82, oxygen saturation on 3 L 98%. Labs for today showed glucose of 114. GENERAL: She is a 42-year-old female complaining of problems with dry mouth. HEENT: Head is atraumatic, normocephalic. Pupils are reactive. NECK: Supple. Trachea is midline. LUNGS: Lung sounds with tight wheezes heard throughout. CARDIOVASCULAR: S1 and S2 are heard. Regular. No murmurs. ABDOMEN: Soft. Bowel sounds are present. No hepatosplenomegaly. EXTREMITIES: Trace edema. Pulses are palpable. NEUROLOGIC: She is awake, alert. IMPRESSION: 1. Acute hypoxic respiratory failure requiring supplemental oxygen. 2. Acute exacerbation of chronic obstructive pulmonary disease. 3. Acute exacerbation of chronic moderate persistent asthma. 4. Obstructive sleep apnea, on CPAP. 5. Fibromyalgia. 6. Diabetes mellitus. 7. Chronic pain syndrome. 8. History of cervical cancer. 9. Nicotine dependence. PLAN: Medications reviewed. Continue as ordered. Will continue with pulmonary hygiene. Continue with oxygen to keep saturations 92% or better. Continue with nebulizer treatments. Continue with antibiotics and start steroid taper. Smoking cessation discussed. Continue with GI and DVT prophylaxis. Increase activity as tolerated. Monitor labs. Will order today. Will continue to follow patient with you and make further changes as necessary. MMODL / IJN: [id number] /
[2018-01-14 17:15] LABS: Glucose,Whole Blood 178 mg/dL (75-99)
[2018-01-14] MEDS: risperiDONE 1 MG TAB PO SCH (21:20)
[2018-01-14] MEDS: MONTELUKAST 10 MG TAB PO SCH (21:21)
[2018-01-14] MEDS: ATORVASTATIN 40 MG TAB PO SCH (21:21)
[2018-01-14] MEDS: FENOFIBRATE 160 MG TAB PO SCH (21:21)
[2018-01-15 06:19] LABS: Glucose,Whole Blood 108 mg/dL (75-99)
[2018-01-15] MEDS: BUDESONIDE 0.5 MG/2 ML NEBU INHALATION SCH ×2 (07:55→19:40)
[2018-01-15] MEDS: FORMOTEROL FUMARATE 20 MCG/2 ML NEBU INHALATION SCH ×2 (07:56→19:40)
[2018-01-15] MEDS: IPRATROPIUM-ALBUTEROL 3 ML NEB INHALATION SCH ×4 (07:56→19:40)
[2018-01-15 08:34] LABS: Basophils % (A) 0 %; Eosinophils % (A) 0 %; HCT 38.4 % (34.0-46.0); Hypochromasia Slight; Lymphocytes % (A) 42 %; MCH 28.6 pg (25.0-35.0); MCHC 31.3 g/dL (31.0-37.0); MCV 91.4 fL (80.0-100.0); Mean Platelet Volume 7.3; Monocytes # (A) 0.7 k/uL (0-1.0); Monocytes % (A) 7 %; Neutrophils # (A) 4.6 k/uL (1.3-7.7); Neutrophils % (A) 48 %; Platelet Count 301 k/uL (150-450); RDW 14.9 % (11.5-15.5); WBC 9.5 k/uL (3.8-10.6)
[2018-01-15 08:53] LABS: ALT 21 U/L (9-52); AST 14 U/L (14-36); Albumin 3.2 g/dL (3.5-5.0); Alkaline Phosphatase 32 U/L (38-126); Anion Gap 9 mmol/L; Blood Urea Nitrogen 23 mg/dL (7-17); Calcium 8.8 mg/dL (8.4-10.2); Carbon Dioxide 21 mmol/L (22-30); Chloride 108 mmol/L (98-107); Glucose 109 mg/dL (74-99); Magnesium 2.3 mg/dL (1.6-2.3); Potassium 4.3 mmol/L (3.5-5.1); Sodium 138 mmol/L (137-145); Total Bilirubin 0.4 mg/dL (0.2-1.3); Total Protein 5.6 g/dL (6.3-8.2)
[2018-01-15] MEDS: AZITHROMYCIN 500 MG TAB PO SCH (09:02)
[2018-01-15] MEDS: DIVALPROEX 500 MG TABLET.DR PO SCH ×3 (09:03→21:11)
[2018-01-15] MEDS: TOPIRAMATE 100 MG TAB PO SCH ×2 (09:03→21:11)
[2018-01-15] MEDS: guaiFENesin 600 MG TABLET.ER PO SCH ×2 (09:03→21:10)
[2018-01-15] MEDS: METHOCARBAMOL 750 MG TAB PO SCH ×2 (09:03→21:10)
[2018-01-15] MEDS: DULoxetine HCL 60 MG CAPSULE.DR PO SCH (09:04)
[2018-01-15] MEDS: predniSONE 20 MG TAB PO SCH (09:04)
[2018-01-15] MEDS: metFORMIN 500 MG TAB PO SCH ×2 (09:04→16:43)
[2018-01-15] MEDS: PANTOPRAZOLE 40 MG TABLET PO SCH (09:05)
[2018-01-15] MEDS: oxyCODONE-APAP 7.5-325MG 1 EACH TAB PO PRN ×2 (09:05→21:10)
[2018-01-15] MEDS: IBUPROFEN 800 MG TAB PO PRN ×2 (09:05→21:09)
--- NOTE | 2018-01-15 11:07 | P.PN ---
Subjective Progress Note Date: 01/15/18 This is a 42-year-old female patient who is well-known to our services being seen examined and evaluated today for consultation. The patient came into the emergency room a few days ago and was admitted with COPD exacerbation. That time she left AGAINST MEDICAL ADVICE less than 24 hours being here. The patient returned to the emergency room last night with worsening severity and symptoms. She does have a known history of COPD, asthma and obstructive sleep apnea syndrome which she is on CPAP for. She does not use any home oxygen. She does use home MDIs such as Symbicort and Ventolin she uses nebulizers in the form of DuoNeb and she is also on singular each night. She does not work is disabled. She has a current 1 pack per day smoker for approximately 25 years She was last seen by Dr. Thomson on December 30. And her breathing was relatively stable at that time. Upon examination today she is resting up in bed on 4 L of supplemental oxygen she states she has shortness of breath with exertion and activity as well as extensive conversation. She does complain of a congested cough however is unable to bring up any sputum. Her chest x-ray was reviewed and was negative for any acute processes. She was admitted to the hospital for further evaluation and workup. She was put on antibiotics and IV steroids. The patient states her breathing is slightly improved however not at baseline. She is afebrile no further complaints. 01/15/2018: Patient seen and examined. Patient states she is starting to feel better. She is wearing her CPAP with 3 L of oxygen bled in. The patient is still wheezing however she has better air movement. The patient denies fevers and chills. She does have a cough which is nonproductive. Objective - Vital Signs Vital signs: Vital Signs Temp 97 F L 01/15/18 05:00 Pulse 84 01/15/18 08:24 Resp 16 01/15/18 05:00 BP 107/61 01/15/18 05:00 Pulse Ox 96 01/15/18 05:00 Intake & Output 01/14/18 01/15/18 01/15/18 18:59 06:59 18:59 Intake Total 940 Balance 940 Weight 133.356 kg Intake: Oral 940 Other: Voiding Method Toilet Toilet Toilet # Voids 2 1 - Exam GENERAL EXAM: Alert, active, comfortable in no apparent distress, morbidly obese. HEAD: Normocephalic. EYES: Normal reaction of pupils, equal size. NOSE: Clear with pink turbinates. THROAT: No erythema or exudates. NECK: No masses, no JVD. CHEST: No chest wall deformity. LUNGS: Bilateral expiratory wheezing with improved air movement CVS: S1 and S2 normal with no audible mumurs, regular rhythm. ABDOMEN: No hepatosplenomegaly, normal bowel sounds, no guarding or rigidity. EXTREMITIES: Trace edema noted, pedal pulses palpable. CENTRAL NERVOUS SYSTEM: No focal deficits, tone is normal in all 4 extremities. - Labs CBC & Chem 7: 01/15/18 07:53 01/15/18 07:53 Labs: Abnormal Lab Results - Last 24 Hours (Table) 01/14/18 01/15/18 01/15/18 Range/Units 17:13 06:15 07:53 Chloride 108 H (98-107) mmol/L Carbon Dioxide 21 L (22-30) mmol/L BUN 23 H (7-17) mg/dL Glucose 109 H (74-99) mg/dL POC Glucose (mg/dL) 178 H 108 H (75-99) mg/dL Alkaline Phosphatase 32 L (38-126) U/L Total Protein 5.6 L (6.3-8.2) g/dL Albumin 3.2 L (3.5-5.0) g/dL Assessment and Plan Assessment: Acute hypoxic respiratory failure requiring supplemental oxygen, improving Acute exacerbation of COPD Acute exacerbation of chronic moderate persistent asthma Obstructive sleep apnea on CPAP Fibromyalgia Diabetes mellitus Chronic pain syndrome History of cervical cancer Nicotine dependence Plan Medications have been reviewed and will be continued as ordered. Continue with pulmonary hygiene, coughing and deep breathing exercises, and supportive care. Supplemental oxygen to maintain oxygen saturations of 92% or better. Continue nebulizer treatments. Antibiotics and steroid taper Mucinex Singulair Initiate and encourage incentive spirometer Smoking cessation GI and DVT prophylaxis. Increase activity as tolerated, early mobility and ambulation Discussed with nursing will try patient off of oxygen and monitor her saturation on room air
[2018-01-15] MEDS: BUTALB/APAP/CAFF 50-325-40MG TAB PO PRN (12:51)
--- NOTE | 2018-01-15 14:17 | P.PN ---
Subjective Principal diagnosis: acute hypoxic respiratory failure Acute exacerbation COPD/persistent asthma The patient came into the emergency room a few days ago and was admitted with COPD exacerbation. That time she left AGAINST MEDICAL ADVICE less than 24 hours being here. The patient returned to the emergency room last night with worsening severity and symptoms. She does have a known history of COPD, asthma and obstructive sleep apnea syndrome which she is on CPAP for. She does not use any home oxygen. She does use home MDIs such as Symbicort and Ventolin she uses nebulizers in the form of DuoNeb and she is also on singular each night. She does not work is disabled. She has a current 1 pack per day smoker for approximately 25 years She was last seen by Dr. Thomson on December 30. And her breathing was relatively stable at that time. Upon examination today she is resting up in bed on 4 L of supplemental oxygen she states she has shortness of breath with exertion and activity as well as extensive conversation. She does complain of a congested cough however is unable to bring up any sputum. Her chest x-ray was reviewed and was negative for any acute processes. She was admitted to the hospital for further evaluation and workup. She was put on antibiotics and IV steroids. The patient states her breathing is slightly improved however not at baseline. She is afebrile no further complaints. 01/15/2018: Patient seen and examined. Patient states she is starting to feel better. She is wearing her CPAP with 3 L of oxygen bled in. The patient is still wheezing however she has better air movement. The patient denies fevers and chills. She does have a cough which is nonproductive. pulmonary hygiene and cough with deep breathing exercises are recommended along with supportive care; oxygen saturation over 92% as recommended; patient is advised to increase activity as tolerated; nursing staff is trying to wean oxygen off and monitor oxygen saturation on room air Objective - Vital Signs Vital signs: Vital Signs Temp 97 F L 01/15/18 05:00 Pulse 86 01/15/18 11:38 Resp 16 01/15/18 05:00 BP 107/61 01/15/18 05:00 Pulse Ox 96 01/15/18 05:00 Intake & Output 01/14/18 01/15/18 01/15/18 18:59 06:59 18:59 Intake Total 940 Balance 940 Weight 133.356 kg Intake: Oral 940 Other: Voiding Method Toilet Toilet Toilet # Voids 2 1 - Exam GENERAL EXAM: Alert, active, comfortable in no apparent distress, morbidly obese. HEAD: Normocephalic. EYES: Normal reaction of pupils, equal size. NOSE: Clear with pink turbinates. THROAT: No erythema or exudates. NECK: No masses, no JVD. CHEST: No chest wall deformity. LUNGS: Lungs noted to be somewhat diminished with expiratory wheezing scattered throughout. CVS: S1 and S2 normal with no audible mumurs, regular rhythm. ABDOMEN: No hepatosplenomegaly, normal bowel sounds, no guarding or rigidity. EXTREMITIES: Trace edema noted, pedal pulses palpable. CENTRAL NERVOUS SYSTEM: No focal deficits, tone is normal in all 4 extremities. - Labs CBC & Chem 7: 01/15/18 07:53 01/15/18 07:53 Labs: Abnormal Lab Results - Last 24 Hours (Table) 01/14/18 01/15/18 01/15/18 Range/Units 17:13 06:15 07:53 Chloride 108 H (98-107) mmol/L Carbon Dioxide 21 L (22-30) mmol/L BUN 23 H (7-17) mg/dL Glucose 109 H (74-99) mg/dL POC Glucose (mg/dL) 178 H 108 H (75-99) mg/dL Alkaline Phosphatase 32 L (38-126) U/L Total Protein 5.6 L (6.3-8.2) g/dL Albumin 3.2 L (3.5-5.0) g/dL Assessment and Plan Plan: 1. COPD exacerbation - patient was started on, azithromycin, - steroids will be switched to oral, inhalational treatments. - Pulmonology was consulted. 2. Obstructive sleep apnea and uses CPAP machine which will be continued 3. Type 2 diabetes mellitus - patient is expected to have elevated blood sugars because of systemic steroids patient will been sliding scale insulin along with her at home regimen titrate her diabetic regimen depending on her blood sugars here. 4. Fibromyalgia 5. Gastroesophageal reflux disease - Prilosec will be resumed. Patient does have bilateral hip pain only improves with ibuprofen because of which are good and continue ibuprofen as well in spite of her acid reflux 6. Hyperlipidemia; continue with Lipitor 40 mg by mouth daily at bedtime along with lofibra of 160 mg by mouth daily at bedtime 7. DVT prophylaxis; SCDs only CODE STATUS; full code Time with Patient: Greater than 30
[2018-01-15 17:04] LABS: Glucose,Whole Blood 174 mg/dL (75-99)
[2018-01-15 20:19] LABS: Glucose,Whole Blood 161 mg/dL (75-99)
[2018-01-15] MEDS: FENOFIBRATE 160 MG TAB PO SCH (21:10)
[2018-01-15] MEDS: ATORVASTATIN 40 MG TAB PO SCH (21:10)
[2018-01-15] MEDS: MONTELUKAST 10 MG TAB PO SCH (21:10)
[2018-01-15] MEDS: risperiDONE 1 MG TAB PO SCH (21:11)
[2018-01-16 05:52] LABS: Glucose,Whole Blood 96 mg/dL (75-99)
[2018-01-16] MEDS: IPRATROPIUM-ALBUTEROL 3 ML NEB INHALATION SCH ×2 (07:13→11:03)
[2018-01-16] MEDS: FORMOTEROL FUMARATE 20 MCG/2 ML NEBU INHALATION SCH (07:13)
[2018-01-16] MEDS: BUDESONIDE 0.5 MG/2 ML NEBU INHALATION SCH (07:13)
[2018-01-16 07:53] VITALS: BP 119/64; RESP 20; TEMP 96.2
[2018-01-16 07:57] LABS: Basophils % (A) 0 %; Eosinophils # (A) 0.1 k/uL (0-0.7); Eosinophils % (A) 0 %; HCT 40.7 % (34.0-46.0); HGB 13.4 gm/dL (11.4-16.0); Lymphocytes # (A) 4.2 k/uL (1.0-4.8); Lymphocytes % (A) 34 %; MCHC 32.8 g/dL (31.0-37.0); MCV 88.4 fL (80.0-100.0); Mean Platelet Volume 8.9; Monocytes # (A) 0.8 k/uL (0-1.0); Monocytes % (A) 6 %; Neutrophils # (A) 7.1 k/uL (1.3-7.7); Neutrophils % (A) 58 %; Platelet Count 315 k/uL (150-450); RBC 4.61 m/uL (3.80-5.40); RDW 14.8 % (11.5-15.5); WBC 12.3 k/uL (3.8-10.6)
[2018-01-16 07:58] LABS: Anion Gap 10 mmol/L; Calcium 9.1 mg/dL (8.4-10.2); Carbon Dioxide 21 mmol/L (22-30); Chloride 108 mmol/L (98-107); Glucose 95 mg/dL (74-99); Sodium 139 mmol/L (137-145)
[2018-01-16] MEDS: PANTOPRAZOLE 40 MG TABLET PO SCH (08:00)
[2018-01-16] MEDS: predniSONE 20 MG TAB PO SCH (08:00)
[2018-01-16] MEDS: guaiFENesin 600 MG TABLET.ER PO SCH (08:00)
[2018-01-16] MEDS: METHOCARBAMOL 750 MG TAB PO SCH (08:01)
[2018-01-16] MEDS: metFORMIN 500 MG TAB PO SCH (08:01)
[2018-01-16] MEDS: TOPIRAMATE 100 MG TAB PO SCH (08:01)
[2018-01-16] MEDS: DIVALPROEX 500 MG TABLET.DR PO SCH (08:01)
[2018-01-16] MEDS: AZITHROMYCIN 500 MG TAB PO SCH (08:01)
[2018-01-16] MEDS: oxyCODONE-APAP 7.5-325MG 1 EACH TAB PO PRN (08:06)
[2018-01-16] MEDS: IBUPROFEN 800 MG TAB PO PRN (08:06)
[2018-01-16 08:10] LABS: Blood Urea Nitrogen 24 mg/dL (7-17); Potassium 4.5 mmol/L (3.5-5.1)
[2018-01-16] MEDS: DULoxetine HCL 60 MG CAPSULE.DR PO SCH (09:28)
--- NOTE | 2018-01-16 11:19 | P.PN ---
<Sima Vargas E - Last Filed: 01/16/18 11:14> Subjective Progress Note Date: 01/16/18 This is a 42-year-old female patient who is well-known to our services being seen examined and evaluated today for consultation. The patient came into the emergency room a few days ago and was admitted with COPD exacerbation. That time she left AGAINST MEDICAL ADVICE less than 24 hours being here. The patient returned to the emergency room last night with worsening severity and symptoms. She does have a known history of COPD, asthma and obstructive sleep apnea syndrome which she is on CPAP for. She does not use any home oxygen. She does use home MDIs such as Symbicort and Ventolin she uses nebulizers in the form of DuoNeb and she is also on singular each night. She does not work is disabled. She has a current 1 pack per day smoker for approximately 25 years She was last seen by Dr. Thomson on December 30. And her breathing was relatively stable at that time. Upon examination today she is resting up in bed on 4 L of supplemental oxygen she states she has shortness of breath with exertion and activity as well as extensive conversation. She does complain of a congested cough however is unable to bring up any sputum. Her chest x-ray was reviewed and was negative for any acute processes. She was admitted to the hospital for further evaluation and workup. She was put on antibiotics and IV steroids. The patient states her breathing is slightly improved however not at baseline. She is afebrile no further complaints. 01/15/2018: Patient seen and examined. Patient states she is starting to feel better. She is wearing her CPAP with 3 L of oxygen bled in. The patient is still wheezing however she has better air movement. The patient denies fevers and chills. She does have a cough which is nonproductive. 01/16/18- patient is being seen examined and evaluated today on rounds. She is resting up in bed on room air. She continues to use her CPAP overnight. Patient states she is feeling much better today and is looking forward to discharge. She denies any fevers chills. Her cough is improving. No further complaints. Objective - Vital Signs Vital signs: Vital Signs Temp 96.2 F L 01/16/18 07:15 Pulse 84 01/16/18 11:03 Resp 20 01/16/18 08:00 BP 119/64 01/16/18 07:15 Pulse Ox 96 01/16/18 07:15 Intake & Output 01/15/18 01/16/18 01/16/18 18:59 06:59 18:59 Intake Total 1190 Balance 1190 Intake: Oral 1190 Other: Voiding Method Toilet Toilet Toilet # Voids 2 1 - Exam GENERAL EXAM: Alert, active, comfortable in no apparent distress, morbidly obese. HEAD: Normocephalic. EYES: Normal reaction of pupils, equal size. NOSE: Clear with pink turbinates. THROAT: No erythema or exudates. NECK: No masses, no JVD. CHEST: No chest wall deformity. LUNGS: Bilateral expiratory wheezing with improved air movement CVS: S1 and S2 normal with no audible mumurs, regular rhythm. ABDOMEN: No hepatosplenomegaly, normal bowel sounds, no guarding or rigidity. EXTREMITIES: Trace edema noted, pedal pulses palpable. CENTRAL NERVOUS SYSTEM: No focal deficits, tone is normal in all 4 extremities. - Labs CBC & Chem 7: 01/16/18 06:48 01/16/18 06:48 Labs: Abnormal Lab Results - Last 24 Hours (Table) 01/15/18 01/15/18 01/16/18 Range/Units 17:03 20:17 06:48 WBC 12.3 H (3.8-10.6) k/uL Chloride (98-107) mmol/L Carbon Dioxide (22-30) mmol/L BUN (7-17) mg/dL POC Glucose (mg/dL) 174 H 161 H (75-99) mg/dL 01/16/18 Range/Units 06:48 WBC (3.8-10.6) k/uL Chloride 108 H (98-107) mmol/L Carbon Dioxide 21 L (22-30) mmol/L BUN 24 H (7-17) mg/dL POC Glucose (mg/dL) (75-99) mg/dL Assessment and Plan Assessment: Assessment Acute hypoxic respiratory failure requiring supplemental oxygen, improving Acute exacerbation of COPD Acute exacerbation of chronic moderate persistent asthma Obstructive sleep apnea on CPAP Fibromyalgia Diabetes mellitus Chronic pain syndrome History of cervical cancer Nicotine dependence Plan Patient is cleared for discharge from pulmonary standpoint Medications have been reviewed and will be continued as ordered. Continue with pulmonary hygiene, coughing and deep breathing exercises, and supportive care. Supplemental oxygen to maintain oxygen saturations of 92% or better. Continue nebulizer treatments. Antibiotics and steroid taper Mucinex Singulair Initiate and encourage incentive spirometer Smoking cessation GI and DVT prophylaxis. Increase activity as tolerated, early mobility and ambulation I performed an examination of the patient and discussed their management with the nurse practitioner. I have reviewed the nurse practitioner's note and agree with the documented findings and plan of care. <Patricia Yao - Last Filed: 01/16/18 14:18> Objective - Vital Signs Vital signs: Vital Signs Temp 96.2 F L 01/16/18 07:15 Pulse 87 01/16/18 11:51 Resp 20 01/16/18 08:00 BP 119/64 01/16/18 07:15 Pulse Ox 95 01/16/18 11:51 Intake & Output 01/15/18 01/16/18 01/16/18 18:59 06:59 18:59 Intake Total 1190 Balance 1190 Weight 133.356 kg Intake: Oral 1190 Other: Voiding Method Toilet Toilet Toilet # Voids 2 1 - Labs CBC & Chem 7: 01/16/18 06:48 01/16/18 06:48 Labs: Abnormal Lab Results - Last 24 Hours (Table) 01/15/18 01/15/18 01/16/18 Range/Units 17:03 20:17 06:48 WBC 12.3 H (3.8-10.6) k/uL Chloride (98-107) mmol/L Carbon Dioxide (22-30) mmol/L BUN (7-17) mg/dL POC Glucose (mg/dL) 174 H 161 H (75-99) mg/dL 01/16/18 Range/Units 06:48 WBC (3.8-10.6) k/uL Chloride 108 H (98-107) mmol/L Carbon Dioxide 21 L (22-30) mmol/L BUN 24 H (7-17) mg/dL POC Glucose (mg/dL) (75-99) mg/dL Assessment and Plan Assessment: patient seen and examined. Patient states she is feeling better today. She is 92% on room air. The patient states she feels like she is ready to go home. Okay to discharge from pulmonary standpoint with steroid taper and breathing treatments. The patient does have a nebulizer at home. Home O2 evaluation prior to discharge. ~Patricia Yao DO
[2018-01-16 11:52] VITALS: PULSE 87
--- NOTE | 2018-01-16 18:19 | P.DS ---
Providers Date of admission: 01/13/18 00:04 Expected date of discharge: 01/16/18 Attending physician: Nadia Collins Consults: 01/13/18 09:51 Consult Physician Routine Consulting Provider: Alex Thomson Consult Reason/Comments: COPD Do you want consulting provider notified?: Yes Primary care physician: [facility] Course: Final Diagnoses: -Short of breath secondary to COPD exacerbation, improving -Obstructive sleep apnea and uses CPAP machine -Type 2 diabetes mellitus -Fibromyalgia -Gastroesophageal reflux disease -Hyperlipidemia -Morbid obesity -Major depression history, history of PTSD Hospital course:42-year-old female presenting for worsening cough and dyspnea. Patient has history of asthma and COPD. She was recently admitted to this institution with COPD exacerbation. She left AGAINST MEDICAL ADVICE, she is returning with worsening symptoms. She denies chest pain. Denies fever or chills. No known history of heart failure. Denies lower extremity pain or swelling. Patient is unable to cough anything chest x-ray did not show any pneumonic process patient was started on azithromycin systemic steroids. Patient does have fairly good air entry this time on exam. Moderate wheezing was appreciated. Evaluated by pulmonary, maintained on nebulized bronchodilators, systemic steroids, antibiotics with CPAP at night. Significant clinical improvement. Cleared by pulmonary for discharge. Patient is being discharged home in a stable condition with guarded prognosis. EXAM:GENERAL: Alert and oriented 3, no acute distress.CV: Regular S1 and S2, no murmurs gallops.LUNGS: Improved air entry, occasional diffuse bilateral expiratory wheeze. ABD: Soft, nontender, positive bowel sounds.NEURO: No focal deficits. The impression and plan of care has been dictated as directed. : I performed a history and examination of this patient, discussed the same with the dictator. I agree with the dictator's note ,documented as a scribe. Any additional findings or plans will be noted. Time taken: 35 minutes Patient Condition at Discharge: Stable Plan - Discharge Summary Discharge Rx Participant: No New Discharge Prescriptions: New Azithromycin [Zithromax] 500 mg PO DAILY #5 tab predniSONE 10 mg PO DIRECTED #30 tab Continue Docusate [Colace] 100 mg PO HS PRN PRN Reason: Constipation Albuterol Inhaler [Ventolin Hfa Inhaler] 2 puff INHALATION RT-Q6H PRN PRN Reason: Bronchodilation Omeprazole [PriLOSEC] 20 mg PO BID Montelukast Sodium [Singulair] 10 mg PO HS DULoxetine HCL [Cymbalta] 60 mg PO DAILY Topiramate 100 mg PO BID oxyCODONE-APAP 7.5-325MG [Percocet 7.5-325 mg] 1 tab PO BID PRN PRN Reason: Pain metFORMIN HCL [Glucophage] 1,000 mg PO BID Pregabalin [Lyrica] 150 mg PO BID Ergocalciferol (Vitamin D2) [Vitamin D2] 50,000 unit PO SIMON Budesonide/Formoterol Fumarate [Symbicort 160-4.5 Mcg Inhaler] 2 puff INHALATION RT-BID Atorvastatin [Lipitor] 40 mg PO HS Fenofibrate Nanocrystallized [Tricor] 145 mg PO HS #30 tablet Butalb/APAP/Caff 50-325-40Mg [Fioricet 50-325-40] 1 tab PO Q8H PRN PRN Reason: Migraine Headache Methocarbamol [Robaxin] 750 mg PO BID risperiDONE [RisperDAL] 1 mg PO HS Ipratropium Nebulized [Atrovent Nebulized] 0.5 mg INHALATION RT-QID PRN PRN Reason: Shortness Of Breath Albuterol Nebulized [Ventolin Nebulized] 2.5 mg INHALATION RT-QID PRN PRN Reason: Shortness Of Breath hydrOXYzine PAMOATE 25 mg PO BID PRN PRN Reason: Anxiety Divalproex Sodium [Depakote] 500 mg PO TID Discontinued Ibuprofen [Motrin] 800 mg PO TID PRN PRN Reason: Pain Discharge Medication List Albuterol Inhaler [Ventolin Hfa Inhaler] 2 puff INHALATION RT-Q6H PRN 12/06/13 [ History] Docusate [Colace] 100 mg PO HS PRN 12/06/13 [History] Omeprazole [PriLOSEC] 20 mg PO BID 12/06/13 [History] Montelukast Sodium [Singulair] 10 mg PO HS 03/20/14 [History] DULoxetine HCL [Cymbalta] 60 mg PO DAILY 06/09/15 [History] Topiramate 100 mg PO BID 10/07/15 [History] Atorvastatin [Lipitor] 40 mg PO HS 07/20/17 [History] Budesonide/Formoterol Fumarate [Symbicort 160-4.5 Mcg Inhaler] 2 puff INHALATION RT-BID 07/20/17 [History] Ergocalciferol (Vitamin D2) [Vitamin D2] 50,000 unit PO SIMON 07/20/17 [History] Pregabalin [Lyrica] 150 mg PO BID 07/20/17 [History] metFORMIN HCL [Glucophage] 1,000 mg PO BID 07/20/17 [History] oxyCODONE-APAP 7.5-325MG [Percocet 7.5-325 mg] 1 tab PO BID PRN 07/20/17 [ History] Fenofibrate Nanocrystallized [Tricor] 145 mg PO HS #30 tablet 08/19/17 [Rx] Butalb/APAP/Caff 50-325-40Mg [Fioricet 50-325-40] 1 tab PO Q8H PRN 10/10/17 [ History] Methocarbamol [Robaxin] 750 mg PO BID 10/10/17 [History] Albuterol Nebulized [Ventolin Nebulized] 2.5 mg INHALATION RT-QID PRN 12/20/17 [ History] Ipratropium Nebulized [Atrovent Nebulized] 0.5 mg INHALATION RT-QID PRN [History] hydrOXYzine PAMOATE 25 mg PO BID PRN 12/20/17 [History] risperiDONE [RisperDAL] 1 mg PO HS 12/20/17 [History] Divalproex Sodium [Depakote] 500 mg PO TID 01/13/18 [History] Azithromycin [Zithromax] 500 mg PO DAILY #5 tab 01/16/18 [Rx] predniSONE 10 mg PO DIRECTED #30 tab 01/16/18 [Rx] Follow up Appointment(s)/Referral(s): Ayanna Smith MD [Primary Care Provider] - 01/19/18 4:00 pm Alex Thomson MD [STAFF PHYSICIAN] - 01/25/18 9:45 am Ambulatory/Diagnostic Orders: Complete Blood Count w/diff [LAB.AMB] Time Frame: 3 Days, Location: None Selected Patient Instructions/Handouts: Prednisone (By mouth), Azithromycin (By mouth), How to Stop Smoking (DC), COPD (Chronic Obstructive Pulmonary Disease) (DC) Activity/Diet/Wound Care/Special Instructions: Diet: Consistent carb Accu-Cheks before meals and at bedtime Activity: Limited until follow Discharge Disposition: HOME SELF-CARE
== END 2018-01-16 14:14 | disposition home or self-care (01) | DRG 190 ==
LOC: EC 20:25 → 5MS5E 01-13 00:04
PROVIDERS: ADMIT Internal Medicine; ATTEND Internal Medicine
DX: J44.1 Chronic obstructive pulmonary disease with (acute) exacerbation (principal); J96.01 Acute respiratory failure with hypoxia; J45.41 Moderate persistent asthma with (acute) exacerbation; Z68.43 Body mass index [BMI] 50.0-59.9, adult; E11.42 Type 2 diabetes mellitus with diabetic polyneuropathy; E66.01 Morbid (severe) obesity due to excess calories; F25.9 Schizoaffective disorder, unspecified; K76.0 Fatty (change of) liver, not elsewhere classified; E78.5 Hyperlipidemia, unspecified; F17.210 Nicotine dependence, cigarettes, uncomplicated; F32.9 Major depressive disorder, single episode, unspecified; F40.240 Claustrophobia; M54.9 Dorsalgia, unspecified; F43.10 Post-traumatic stress disorder, unspecified; F60.3 Borderline personality disorder; G47.33 Obstructive sleep apnea (adult) (pediatric); G89.4 Chronic pain syndrome; K21.9 Gastro-esophageal reflux disease without esophagitis; M79.7 Fibromyalgia; G43.909 Migraine, unspecified, not intractable, without status migrainosus; M19.90 Unspecified osteoarthritis, unspecified site; F41.9 Anxiety disorder, unspecified; Z79.51 Long term (current) use of inhaled steroids; Z79.84 Long term (current) use of oral hypoglycemic drugs; Z79.899 Other long term (current) drug therapy; Z88.5 Allergy status to narcotic agent; Z88.8 Allergy status to other drugs, medicaments and biological substances; Z90.710 Acquired absence of both cervix and uterus; Z85.41 Personal history of malignant neoplasm of cervix uteri; Z87.01 Personal history of pneumonia (recurrent); Z98.1 Arthrodesis status; Z82.49 Family history of ischemic heart disease and other diseases of the circulatory system; Z83.3 Family history of diabetes mellitus
CPT/HCPCS: 36415; 71046; 80048; 80053; 82550; 82553; 83036; 83735; 83880; 84484; 85025; 85610; 85730; 93005; 94640; 96374; 96375; 99285

== ENCOUNTER 2018-02-01 22:52 | Emergency (ER) | payer OTHER ==
[2018-02-02] MEDS ORDERED: ORPHENADRINE 30 MG/ML 2 ML VIAL IM STA (00:10)
[2018-02-02] MEDS ORDERED: ONDANSETRON 4 MG/2 ML VIAL IM STA (00:10)
--- NOTE | 2018-02-02 00:52 | US ---
EXAMINATION TYPE: US venous doppler duplex UE LT DATE OF EXAM: 02/02/2018 COMPARISON: NONE CLINICAL HISTORY: Pain. Left elbow pain. Unable to do IJV due to patient having a neck brace on not a ble to remove it. SIDE PERFORMED: Left Left Arm: Negative for DVT for all vessels scanned. IMPRESSION: Negative exam. No evidence of deep venous thrombosis in the left arm. There is patency of the left velasquez bclavian axillary brachial veins.
[2018-02-02] MEDS ORDERED: ONDANSETRON 4 MG TAB PO STA (01:35)
[2018-02-02 01:50] VITALS: PULSE 76
--- NOTE | 2018-02-02 02:21 | CT ---
EXAMINATION TYPE: CT cervical spine wo con DATE OF EXAM: 02/01/2018 COMPARISON: 01/26/2018 HISTORY: pt fell back and neck pain CT DLP: 773.20 mGycm Automated exposure control for dose reduction was used. TECHNIQUE: CT scan of the cervical spine is obtained without contrast, axial images are obtained, sa gittal and coronal reformatted images are also reviewed. FINDINGS: There is some straightening of the cervical vertebra. There is a plate with screws fusing a nteriorly the cervical spine at C4-5. Facet joints appear normal. The posterior elements are intact. The skull base appears intact. Disc spaces overall are fairly well-maintained. There is no evidence o f a fracture. IMPRESSION: Previous surgery. No fracture seen. Negative exam.
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
[2018-02-02 02:48] VITALS: BP 124/65; RESP 17; TEMP 98.2
== END 2018-02-02 02:48 | disposition home or self-care (01) ==
LOC: EC 22:52
DX: S13.4XXA Sprain of ligaments of cervical spine, initial encounter (principal); M79.622 Pain in left upper arm; J44.9 Chronic obstructive pulmonary disease, unspecified; M79.7 Fibromyalgia; K21.9 Gastro-esophageal reflux disease without esophagitis; E78.5 Hyperlipidemia, unspecified; E11.40 Type 2 diabetes mellitus with diabetic neuropathy, unspecified; M19.90 Unspecified osteoarthritis, unspecified site; G47.33 Obstructive sleep apnea (adult) (pediatric); Z99.89 Dependence on other enabling machines and devices; G43.909 Migraine, unspecified, not intractable, without status migrainosus; Z85.41 Personal history of malignant neoplasm of cervix uteri; F31.9 Bipolar disorder, unspecified; F41.9 Anxiety disorder, unspecified; F20.9 Schizophrenia, unspecified; F43.10 Post-traumatic stress disorder, unspecified; F17.200 Nicotine dependence, unspecified, uncomplicated; Z79.51 Long term (current) use of inhaled steroids; Z79.899 Other long term (current) drug therapy; Z79.84 Long term (current) use of oral hypoglycemic drugs; Z88.6 Allergy status to analgesic agent; Z91.048 Other nonmedicinal substance allergy status; Z88.8 Allergy status to other drugs, medicaments and biological substances; W01.0XXA Fall on same level from slipping, tripping and stumbling without subsequent striking against object, initial encounter
CPT/HCPCS: 93971; 72125; 99283; 96372 ×2; J2360; J2405

== ENCOUNTER 2018-02-13 02:47 | Emergency (ER) | payer OTHER ==
[2018-02-13 02:56] VITALS: RESP 22
[2018-02-13] MEDS ORDERED: IPRATROPIUM-ALBUTEROL 3 ML NEB INHALATION STA (03:13)
--- NOTE | 2018-02-13 03:39 | XR ---
EXAMINATION TYPE: XR chest 2V DATE OF EXAM: 02/13/2018 COMPARISON: NONE HISTORY: Short of breath TECHNIQUE: Frontal and lateral views of the chest are obtained. FINDINGS: There is no heart failure nor confluent pneumonic infiltrate. Exam is limited by the patie nt size. Heart appears slightly enlarged. There is no sign of pleural effusion. There are chest leads . Bony thorax is intact. IMPRESSION: There is probably some cardiomegaly. No change compared to old exam.
[2018-02-13 03:42] LABS: Basophils # (A) 0.1 k/uL (0-0.2); Basophils % (A) 1 %; Eosinophils # (A) 0.1 k/uL (0-0.7); Eosinophils % (A) 1 %; HCT 40.8 % (34.0-46.0); HGB 13.1 gm/dL (11.4-16.0); Lymphocytes # (A) 3.9 k/uL (1.0-4.8); Lymphocytes % (A) 28 %; MCH 28.2 pg (25.0-35.0); MCHC 32.1 g/dL (31.0-37.0); Mean Platelet Volume 7.3; Monocytes # (A) 0.8 k/uL (0-1.0); Monocytes % (A) 6 %; Neutrophils # (A) 8.6 k/uL (1.3-7.7); Neutrophils % (A) 63 %; Platelet Count 376 k/uL (150-450); RBC 4.64 m/uL (3.80-5.40); RDW 15.1 % (11.5-15.5); WBC 13.7 k/uL (3.8-10.6)
[2018-02-13 03:54] LABS: ALT 18 U/L (9-52); AST 14 U/L (14-36); Albumin 3.5 g/dL (3.5-5.0); Alkaline Phosphatase 73 U/L (38-126); Anion Gap 11 mmol/L; Blood Urea Nitrogen 9 mg/dL (7-17); Calcium 9.7 mg/dL (8.4-10.2); Carbon Dioxide 19 mmol/L (22-30); Chloride 110 mmol/L (98-107); Glucose 168 mg/dL (74-99); Potassium 4.6 mmol/L (3.5-5.1); Sodium 140 mmol/L (137-145); Total Bilirubin 0.3 mg/dL (0.2-1.3); Total Protein 6.2 g/dL (6.3-8.2)
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
[2018-02-13] MEDS ORDERED: predniSONE 20 MG TAB PO STA (04:24)
[2018-02-13] MEDS ORDERED: ALBUTEROL NEBULIZED 2.5 MG/3 ML INHALATION STA (04:24)
[2018-02-13 04:52] VITALS: BP 115/73; TEMP 97.7
[2018-02-13 05:00] VITALS: PULSE 79
== END 2018-02-13 05:43 | disposition home or self-care (01) ==
LOC: EC 02:47
DX: J44.1 Chronic obstructive pulmonary disease with (acute) exacerbation (principal); E78.5 Hyperlipidemia, unspecified; E11.42 Type 2 diabetes mellitus with diabetic polyneuropathy; K21.9 Gastro-esophageal reflux disease without esophagitis; G47.33 Obstructive sleep apnea (adult) (pediatric); F31.9 Bipolar disorder, unspecified; F20.9 Schizophrenia, unspecified; F41.9 Anxiety disorder, unspecified; F17.200 Nicotine dependence, unspecified, uncomplicated; Z88.6 Allergy status to analgesic agent; Z88.8 Allergy status to other drugs, medicaments and biological substances; Z91.048 Other nonmedicinal substance allergy status; Z79.51 Long term (current) use of inhaled steroids; Z79.84 Long term (current) use of oral hypoglycemic drugs; Z79.899 Other long term (current) drug therapy; Z87.01 Personal history of pneumonia (recurrent); Z86.69 Personal history of other diseases of the nervous system and sense organs; Z99.89 Dependence on other enabling machines and devices; Z85.41 Personal history of malignant neoplasm of cervix uteri; Z90.710 Acquired absence of both cervix and uterus
CPT/HCPCS: 36415; 94640 ×2; 93005; 85379; 80053; 84484; 85025; 71046; 99285; J7512

== ENCOUNTER 2018-03-03 02:57 | Emergency (ER) | payer OTHER ==
[2018-03-03 03:12] VITALS: RESP 16; TEMP 97.9
[2018-03-03 03:39] LABS: Basophils % (A) 0 %; Eosinophils # (A) 0.1 k/uL (0-0.7); Eosinophils % (A) 1 %; HCT 41.1 % (34.0-46.0); HGB 13.5 gm/dL (11.4-16.0); Lymphocytes % (A) 27 %; MCH 28.5 pg (25.0-35.0); MCHC 32.8 g/dL (31.0-37.0); MCV 86.8 fL (80.0-100.0); Mean Platelet Volume 7.4; Monocytes # (A) 0.5 k/uL (0-1.0); Monocytes % (A) 5 %; Neutrophils # (A) 7.3 k/uL (1.3-7.7); Neutrophils % (A) 66 %; Platelet Count 354 k/uL (150-450); RBC 4.73 m/uL (3.80-5.40); RDW 14.8 % (11.5-15.5)
--- NOTE | 2018-03-03 03:42 | XR ---
EXAMINATION TYPE: XR chest 1V portable DATE OF EXAM: 03/03/2018 COMPARISON: 02/13/2018 HISTORY: Asthma TECHNIQUE: Single frontal view of the chest is obtained. FINDINGS: Heart and mediastinum are normal. Lungs are clear. Diaphragm is normal. There are chest le ads. Bony thorax appears intact. IMPRESSION: Normal chest. No change.
[2018-03-03 03:52] LABS: ALT 26 U/L (9-52); AST 17 U/L (14-36); Albumin 3.4 g/dL (3.5-5.0); Alkaline Phosphatase 50 U/L (38-126); Anion Gap 8 mmol/L; Blood Urea Nitrogen 11 mg/dL (7-17); Calcium 8.8 mg/dL (8.4-10.2); Carbon Dioxide 20 mmol/L (22-30); Chloride 109 mmol/L (98-107); D-Dimer 0.33 mg/L FEU (<0.60); Glucose 121 mg/dL (74-99); INR 0.9 (<1.2); Partial Thromboplastin Time 23.9 sec (22.0-30.0); Potassium 3.8 mmol/L (3.5-5.1); Prothrombin Time 9.5 sec (9.0-12.0); Sodium 137 mmol/L (137-145); Total Bilirubin 0.3 mg/dL (0.2-1.3); Total Protein 6.1 g/dL (6.3-8.2)
[2018-03-03 04:01] LABS: Creatine Kinase 38 U/L (30-135)
[2018-03-03 04:02] LABS: Appearance,Urine Cloudy (Clear); Bilirubin,Urine Negative (Negative); Blood,Urine Negative (Negative); Color,Urine Yellow; Glucose,Urine (UA) Negative (Negative); Ketones,Urine Negative (Negative); Leukocyte Esterase,Urine Negative (Negative); Mucus,Urine Occasional /hpf; Nitrite,Urine Negative (Negative); Protein,Urine Negative (Negative); RBC,Urine 1 /hpf (0-5); Specific Gravity,Urine 1.015 (1.001-1.035); Squamous Epithelial Cell,Urine 14 /hpf (0-4); WBC,Urine 1 /hpf (0-5)
[2018-03-03 04:14] LABS: Creatine Kinase MB <0.2 ng/mL (0.0-2.4); Troponin I <0.012 ng/mL (0.000-0.034)
[2018-03-03] MEDS ORDERED: HYDROcodone/APAP 5-325MG 1 EACH TAB PO STA (04:59)
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
[2018-03-03 06:33] VITALS: BP 85/49; PULSE 68
== END 2018-03-03 06:37 | disposition home or self-care (01) ==
LOC: EC 02:57
DX: R55 Syncope and collapse (principal); J44.9 Chronic obstructive pulmonary disease, unspecified; M79.7 Fibromyalgia; K21.9 Gastro-esophageal reflux disease without esophagitis; E11.40 Type 2 diabetes mellitus with diabetic neuropathy, unspecified; E78.5 Hyperlipidemia, unspecified; F41.9 Anxiety disorder, unspecified; F25.1 Schizoaffective disorder, depressive type; F25.0 Schizoaffective disorder, bipolar type; F43.10 Post-traumatic stress disorder, unspecified; F17.200 Nicotine dependence, unspecified, uncomplicated; G47.33 Obstructive sleep apnea (adult) (pediatric); Z99.89 Dependence on other enabling machines and devices; Z85.41 Personal history of malignant neoplasm of cervix uteri; Z98.1 Arthrodesis status; Z79.51 Long term (current) use of inhaled steroids; Z79.84 Long term (current) use of oral hypoglycemic drugs; Z79.899 Other long term (current) drug therapy; Z88.6 Allergy status to analgesic agent; Z88.8 Allergy status to other drugs, medicaments and biological substances; Z91.048 Other nonmedicinal substance allergy status
CPT/HCPCS: 36415; 71045; 80053; 81001; 82550; 82553; 84484; 85025; 85379; 85610; 85730; 93005; 99285

== ENCOUNTER 2018-03-10 21:12 | Emergency (ER) | payer OTHER ==
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
[2018-03-10 22:19] LABS: Basophils % (A) 0 %; Eosinophils % (A) 0 %; HCT 44.9 % (34.0-46.0); HGB 14.8 gm/dL (11.4-16.0); Lymphocytes # (A) 3.2 k/uL (1.0-4.8); Lymphocytes % (A) 27 %; MCH 29.1 pg (25.0-35.0); MCHC 32.9 g/dL (31.0-37.0); MCV 88.5 fL (80.0-100.0); Mean Platelet Volume 7.4; Monocytes # (A) 0.8 k/uL (0-1.0); Monocytes % (A) 7 %; Neutrophils # (A) 7.4 k/uL (1.3-7.7); Neutrophils % (A) 63 %; Platelet Count 371 k/uL (150-450); RBC 5.07 m/uL (3.80-5.40); RDW 14.4 % (11.5-15.5); WBC 11.6 k/uL (3.8-10.6)
[2018-03-10 22:29] LABS: ALT 45 U/L (9-52); AST 47 U/L (14-36); Alkaline Phosphatase 66 U/L (38-126); Anion Gap 13 mmol/L; Blood Urea Nitrogen 9 mg/dL (7-17); Calcium 9.5 mg/dL (8.4-10.2); Carbon Dioxide 20 mmol/L (22-30); Chloride 106 mmol/L (98-107); D-Dimer 0.33 mg/L FEU (<0.60); Glucose 166 mg/dL (74-99); INR 0.9 (<1.2); Magnesium 1.7 mg/dL (1.6-2.3); Partial Thromboplastin Time 24.2 sec (22.0-30.0); Potassium 4.1 mmol/L (3.5-5.1); Prothrombin Time 9.5 sec (9.0-12.0); Sodium 139 mmol/L (137-145); Total Bilirubin 0.5 mg/dL (0.2-1.3); Total Protein 6.7 g/dL (6.3-8.2)
--- NOTE | 2018-03-10 22:29 | XR ---
EXAMINATION TYPE: XR chest 2V DATE OF EXAM: 03/10/2018 COMPARISON: 03/03/2018 HISTORY: Left-sided chest pain TECHNIQUE: Frontal and lateral views of the chest are obtained. FINDINGS: Heart and mediastinum are normal. Lungs are clear. Diaphragm is normal. Bony thorax is int act. There are chest leads. IMPRESSION: Normal chest. No change.
[2018-03-10 22:33] LABS: Creatine Kinase 53 U/L (30-135)
[2018-03-10 22:47] LABS: Creatine Kinase MB 0.4 ng/mL (0.0-2.4); Troponin I <0.012 ng/mL (0.000-0.034)
[2018-03-10] MEDS ORDERED: IPRATROPIUM-ALBUTEROL 3 ML NEB INHALATION STA (22:55)
[2018-03-10] MEDS ORDERED: SODIUM CHLORIDE 0.9% 1,000 ML IV ONE (22:56)
[2018-03-11 02:57] VITALS: BP 114/81; PULSE 78; RESP 20; TEMP 97.7
== END 2018-03-11 03:01 | disposition home or self-care (01) ==
LOC: EC 21:12
DX: R00.2 Palpitations (principal); R07.9 Chest pain, unspecified; J44.9 Chronic obstructive pulmonary disease, unspecified; K21.9 Gastro-esophageal reflux disease without esophagitis; E78.5 Hyperlipidemia, unspecified; E11.40 Type 2 diabetes mellitus with diabetic neuropathy, unspecified; G47.33 Obstructive sleep apnea (adult) (pediatric); F41.9 Anxiety disorder, unspecified; F31.9 Bipolar disorder, unspecified; F17.210 Nicotine dependence, cigarettes, uncomplicated; Z79.51 Long term (current) use of inhaled steroids; Z79.84 Long term (current) use of oral hypoglycemic drugs; Z79.899 Other long term (current) drug therapy; Z88.6 Allergy status to analgesic agent; Z91.048 Other nonmedicinal substance allergy status; Z88.8 Allergy status to other drugs, medicaments and biological substances
CPT/HCPCS: 36415; 71046; 80053; 82550; 82553; 83735; 84484; 85025; 85379; 85610; 85730; 93005; 94640; 96360; 96361; 99285

== ENCOUNTER 2018-03-20 22:55 | Emergency (ER) | payer OTHER ==
[2018-03-20 23:02] VITALS: RESP 18; TEMP 97.9
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
[2018-03-20] MEDS ORDERED: SODIUM CHLORIDE 0.9% 1,000 ML IV STA (23:18)
[2018-03-20 23:44] LABS: Basophils % (A) 0 %; Eosinophils # (A) 0.1 k/uL (0-0.7); Eosinophils % (A) 1 %; HCT 42.8 % (34.0-46.0); HGB 13.5 gm/dL (11.4-16.0); Lymphocytes # (A) 3.1 k/uL (1.0-4.8); Lymphocytes % (A) 27 %; MCH 27.9 pg (25.0-35.0); MCHC 31.6 g/dL (31.0-37.0); MCV 88.4 fL (80.0-100.0); Mean Platelet Volume 7.4; Monocytes # (A) 0.6 k/uL (0-1.0); Monocytes % (A) 5 %; Neutrophils # (A) 7.4 k/uL (1.3-7.7); Neutrophils % (A) 65 %; Platelet Count 357 k/uL (150-450); RBC 4.84 m/uL (3.80-5.40); WBC 11.3 k/uL (3.8-10.6)
[2018-03-20 23:53] LABS: ALT 20 U/L (9-52); AST 16 U/L (14-36); Albumin 3.5 g/dL (3.5-5.0); Alkaline Phosphatase 41 U/L (38-126); Anion Gap 8 mmol/L; Blood Urea Nitrogen 6 mg/dL (7-17); Calcium 9.6 mg/dL (8.4-10.2); Carbon Dioxide 19 mmol/L (22-30); Chloride 113 mmol/L (98-107); Glucose 108 mg/dL (74-99); Potassium 4.5 mmol/L (3.5-5.1); Sodium 140 mmol/L (137-145); Total Bilirubin 0.3 mg/dL (0.2-1.3); Total Protein 6.2 g/dL (6.3-8.2)
[2018-03-20 23:58] LABS: Valproic Acid (Depakene) 44.8 ug/mL
[2018-03-21] MEDS ORDERED: DIVALPROEX 500 MG TABLET.DR PO SCH (00:15)
[2018-03-21 01:21] VITALS: BP 106/74; PULSE 74
== END 2018-03-21 01:21 | disposition home or self-care (01) ==
LOC: EC 22:55
DX: R56.9 Unspecified convulsions (principal); R41.0 Disorientation, unspecified; J44.9 Chronic obstructive pulmonary disease, unspecified; E11.9 Type 2 diabetes mellitus without complications; M79.7 Fibromyalgia; K21.9 Gastro-esophageal reflux disease without esophagitis; E78.5 Hyperlipidemia, unspecified; M19.90 Unspecified osteoarthritis, unspecified site; G47.33 Obstructive sleep apnea (adult) (pediatric); G62.9 Polyneuropathy, unspecified; F31.9 Bipolar disorder, unspecified; F41.9 Anxiety disorder, unspecified; F20.9 Schizophrenia, unspecified; F17.200 Nicotine dependence, unspecified, uncomplicated; Z85.41 Personal history of malignant neoplasm of cervix uteri; Z99.89 Dependence on other enabling machines and devices; Z90.49 Acquired absence of other specified parts of digestive tract; Z90.710 Acquired absence of both cervix and uterus; Z98.1 Arthrodesis status; Z98.890 Other specified postprocedural states; Z79.51 Long term (current) use of inhaled steroids; Z79.84 Long term (current) use of oral hypoglycemic drugs; Z79.899 Other long term (current) drug therapy; Z88.6 Allergy status to analgesic agent; Z88.8 Allergy status to other drugs, medicaments and biological substances; Z91.048 Other nonmedicinal substance allergy status
CPT/HCPCS: 36415; 80053; 80164; 83605; 85025; 93005; 96360; 99285

== ENCOUNTER 2018-04-15 05:06 | Emergency (ER) | payer OTHER ==
[2018-04-15] MEDS ORDERED: MORPHINE SULFATE 4 MG/ML SYRINGE IM STA (05:22)
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
--- NOTE | 2018-04-15 06:23 | XR ---
EXAM: XR Left Ribs, 4 Views CLINICAL HISTORY: ITS.[email or web address] XR Reason: Pain TECHNIQUE: Frontal and oblique views of the left ribs. COMPARISON: 03/10/18. FINDINGS: Bones/joints: No displaced rib fracture. IMPRESSION: No displaced rib fracture. EXAM: XR Chest, 1 View CLINICAL HISTORY: ITS.REASON XR Reason: Pain TECHNIQUE: Frontal view of the chest. COMPARISON: 03/10/18. FINDINGS: Lungs: No consolidation. Pleural space: Unremarkable. No pneumothorax. Heart: Unremarkable. Mediastinum: Unremarkable. Bones/joints: No acute fracture. IMPRESSION: No acute cardiopulmonary process.
[2018-04-15 06:38] VITALS: BP 112/58; PULSE 75; RESP 16; TEMP 98.4
== END 2018-04-15 06:38 | disposition home or self-care (01) ==
LOC: EC 05:06
DX: S29.011A Strain of muscle and tendon of front wall of thorax, initial encounter (principal); F41.9 Anxiety disorder, unspecified; F31.9 Bipolar disorder, unspecified; M79.7 Fibromyalgia; M19.90 Unspecified osteoarthritis, unspecified site; F25.0 Schizoaffective disorder, bipolar type; J44.9 Chronic obstructive pulmonary disease, unspecified; K21.9 Gastro-esophageal reflux disease without esophagitis; E78.5 Hyperlipidemia, unspecified; G47.30 Sleep apnea, unspecified; E11.40 Type 2 diabetes mellitus with diabetic neuropathy, unspecified; F17.200 Nicotine dependence, unspecified, uncomplicated; Z79.84 Long term (current) use of oral hypoglycemic drugs; Z79.899 Other long term (current) drug therapy; Z79.51 Long term (current) use of inhaled steroids; Z88.6 Allergy status to analgesic agent; Z91.048 Other nonmedicinal substance allergy status; Z88.8 Allergy status to other drugs, medicaments and biological substances; Z85.41 Personal history of malignant neoplasm of cervix uteri
CPT/HCPCS: 71101; 99283; 96372; J2270

== ENCOUNTER 2018-04-18 00:34 | Emergency (ER) | payer OTHER ==
[2018-04-18] MEDS ORDERED: MORPHINE SULFATE 4 MG/ML SYRINGE IVP STA ×2 (02:53→04:43)
[2018-04-18] MEDS ORDERED: SODIUM CHLORIDE 0.9% 1,000 ML IV ONE (02:53)
[2018-04-18] MEDS ORDERED: ONDANSETRON 4 MG/2 ML VIAL IVP STA (02:53)
[2018-04-18 03:33] LABS: Basophils % (A) 0 %; Eosinophils # (A) 0.1 k/uL (0-0.7); Eosinophils % (A) 1 %; HCT 43.4 % (34.0-46.0); HGB 13.3 gm/dL (11.4-16.0); Lymphocytes # (A) 3.5 k/uL (1.0-4.8); Lymphocytes % (A) 31 %; MCH 27.6 pg (25.0-35.0); MCHC 30.6 g/dL (31.0-37.0); MCV 90.3 fL (80.0-100.0); Mean Platelet Volume 7.9; Monocytes # (A) 0.6 k/uL (0-1.0); Monocytes % (A) 6 %; Neutrophils # (A) 6.8 k/uL (1.3-7.7); Neutrophils % (A) 61 %; Platelet Count 368 k/uL (150-450); RBC 4.81 m/uL (3.80-5.40); RDW 14.4 % (11.5-15.5); WBC 11.2 k/uL (3.8-10.6)
[2018-04-18 03:48] LABS: ALT 29 U/L (9-52); AST 14 U/L (14-36); Albumin 3.5 g/dL (3.5-5.0); Alkaline Phosphatase 47 U/L (38-126); Amylase 38 U/L (30-110); Anion Gap 7 mmol/L; Blood Urea Nitrogen 10 mg/dL (7-17); Calcium 9.2 mg/dL (8.4-10.2); Carbon Dioxide 21 mmol/L (22-30); Chloride 111 mmol/L (98-107); Glucose 115 mg/dL (74-99); Lipase 78 U/L (23-300); Potassium 4.3 mmol/L (3.5-5.1); Sodium 139 mmol/L (137-145); Total Bilirubin 0.3 mg/dL (0.2-1.3); Total Protein 6.2 g/dL (6.3-8.2)
[2018-04-18 04:16] LABS: Appearance,Urine Clear (Clear); Bilirubin,Urine Negative (Negative); Blood,Urine Negative (Negative); Color,Urine Yellow; Glucose,Urine (UA) Negative (Negative); Ketones,Urine Negative (Negative); Leukocyte Esterase,Urine Negative (Negative); Nitrite,Urine Negative (Negative); Protein,Urine Negative (Negative); Urobilinogen,Urine <2.0 mg/dL (<2.0)
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
[2018-04-18 05:04] VITALS: RESP 19
--- NOTE | 2018-04-18 05:25 | CT ---
EXAM: CT Abdomen and Pelvis With Intravenous Contrast CLINICAL HISTORY: ITS.REASON CT Reason: Pain TECHNIQUE: Axial computed tomography images of the abdomen and pelvis with intravenous contrast. CTDI is 29.8 and 32 mGy and DLP is 2839.9 mGy-cm. This CT exam was performed using one or more of the following dose reduction techniques: automated exposure control, adjustment of the mA and/or kV according to patient size, and/or use of iterative reconstruction technique. Delayed imaging was performed. Coronal and sagittal reformatted images were created and reviewed. COMPARISON: Chest and rib radiographs performed earlier. FINDINGS: Lung bases: Unremarkable. No mass. No consolidation. ABDOMEN: Liver: Hepatomegaly with fatty infiltration. Gallbladder and bile ducts: Cholecystectomy. No ductal dilation. Pancreas: Unremarkable. No mass. No ductal dilation. Spleen: Unremarkable. No splenomegaly. Adrenals: Unremarkable. No mass. Kidneys and ureters: Left renal 2.6 cm cyst with possible thin septations. No hydronephrosis. Stomach and bowel: Unremarkable. No obstruction. No mucosal thickening. PELVIS: Appendix: The appendix is absent. Bladder: Unremarkable. No mass. Reproductive: The uterus is absent. ABDOMEN and PELVIS: Intraperitoneal space: Unremarkable. No free air. No significant fluid collection. Bones/joints: Degenerative changes of the hips and spine. No acute fracture. No dislocation. Soft tissues: Unremarkable. Vasculature: Unremarkable. No abdominal aortic aneurysm. Lymph nodes: Unremarkable. No enlarged lymph nodes. IMPRESSION: 1. Hepatomegaly with fatty infiltration. 2. Left renal 2.6 cm cyst with possible thin septations. Recommend abdominal CT or MRI follow-up in 6 months. 3. Cholecystectomy, appendectomy and hysterectomy.
[2018-04-18 06:28] VITALS: BP 122/65; PULSE 71; TEMP 98.6
== END 2018-04-18 06:00 | disposition home or self-care (01) ==
LOC: EC 00:34
DX: T14.8XXA Other injury of unspecified body region, initial encounter (principal); N28.1 Cyst of kidney, acquired; J44.9 Chronic obstructive pulmonary disease, unspecified; E78.5 Hyperlipidemia, unspecified; K21.9 Gastro-esophageal reflux disease without esophagitis; G47.30 Sleep apnea, unspecified; E11.40 Type 2 diabetes mellitus with diabetic neuropathy, unspecified; G47.33 Obstructive sleep apnea (adult) (pediatric); F41.9 Anxiety disorder, unspecified; M79.7 Fibromyalgia; F31.9 Bipolar disorder, unspecified; F20.9 Schizophrenia, unspecified; F17.200 Nicotine dependence, unspecified, uncomplicated; Z79.51 Long term (current) use of inhaled steroids; Z79.84 Long term (current) use of oral hypoglycemic drugs; Z79.899 Other long term (current) drug therapy; Z91.048 Other nonmedicinal substance allergy status; Z88.8 Allergy status to other drugs, medicaments and biological substances; Z88.6 Allergy status to analgesic agent; Z85.41 Personal history of malignant neoplasm of cervix uteri; X50.9XXA Other and unspecified overexertion or strenuous movements or postures, initial encounter
CPT/HCPCS: 99284; 96374; 96375; 96376; 96361; 36415; 80053; 82150; 83690; 85025; 81003; 74177; J2270; J2405; Q9967

== ENCOUNTER 2018-04-30 23:39 | Inpatient (IN) | payer MEDICAID, OTHER ==
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
[2018-05-01 00:49] LABS: Amphetamine Screen,Urine Not Detected (NotDetected); Barbiturate Screen,Urine Not Detected (NotDetected); Benzodiazepines Screen,Urine Not Detected (NotDetected); Cocaine Screen,Urine Not Detected (NotDetected); Methadone Screen, Urine Not Detected (NotDetected); Opiate Screen,Urine Not Detected (NotDetected); Oxycodone Screen, Urine Not Detected (NotDetected); Phencyclidine Screen,Urine Not Detected (NotDetected); Tricyclic Antidepressant,Urine Not Detected (NotDetected); Urn Cannabinoid Scrn Detected (NotDetected)
[2018-05-01] MEDS ORDERED: oxyCODONE-APAP 7.5-325MG 1 EACH TAB PO STA (02:31)
[2018-05-01 04:30] LABS: Appearance,Urine Clear (Clear); Bilirubin,Urine Negative (Negative); Blood,Urine Negative (Negative); Color,Urine Yellow; Glucose,Urine (UA) Negative (Negative); Ketones,Urine Negative (Negative); Leukocyte Esterase,Urine Negative (Negative); Nitrite,Urine Negative (Negative); Protein,Urine Negative (Negative); Specific Gravity,Urine 1.006 (1.001-1.035); Urobilinogen,Urine <2.0 mg/dL (<2.0)
[2018-05-01 05:20] LABS: Basophils % (A) 0 %; Eosinophils # (A) 0.1 k/uL (0-0.7); Eosinophils % (A) 1 %; HCT 41.4 % (34.0-46.0); HGB 13.1 gm/dL (11.4-16.0); Lymphocytes # (A) 3.4 k/uL (1.0-4.8); Lymphocytes % (A) 34 %; MCH 27.7 pg (25.0-35.0); MCHC 31.7 g/dL (31.0-37.0); MCV 87.4 fL (80.0-100.0); Mean Platelet Volume 6.8; Monocytes # (A) 0.6 k/uL (0-1.0); Monocytes % (A) 6 %; Neutrophils # (A) 5.7 k/uL (1.3-7.7); Neutrophils % (A) 57 %; Platelet Count 321 k/uL (150-450); RBC 4.74 m/uL (3.80-5.40); RDW 14.1 % (11.5-15.5)
[2018-05-01 05:31] LABS: ALT 22 U/L (9-52); AST 13 U/L (14-36); Albumin 3.3 g/dL (3.5-5.0); Alkaline Phosphatase 52 U/L (38-126); Anion Gap 8 mmol/L; Blood Urea Nitrogen 6 mg/dL (7-17); Calcium 8.9 mg/dL (8.4-10.2); Carbon Dioxide 21 mmol/L (22-30); Chloride 110 mmol/L (98-107); Glucose 124 mg/dL (74-99); Potassium 3.9 mmol/L (3.5-5.1); Sodium 139 mmol/L (137-145); Total Bilirubin 0.2 mg/dL (0.2-1.3); Total Protein 5.7 g/dL (6.3-8.2)
[2018-05-01 05:55] LABS: Glucose,Whole Blood 135 mg/dL (75-99)
[2018-05-01] MEDS ORDERED: IPRATROPIUM-ALBUTEROL 3 ML NEB INHALATION STA (06:01)
[2018-05-01] MEDS ORDERED: ACETAMINOPHEN TAB 325 MG TAB PO PRN (12:04)
[2018-05-01] MEDS ORDERED: MAGNESIUM HYDROXIDE 2,400 MG/10 ML CUP PO PRN (12:04)
[2018-05-01] MEDS ORDERED: LORazepam 1 MG TAB PO PRN (12:04)
[2018-05-01] MEDS ORDERED: MAG HYDROX/AL HYDROX/SIMETH 30 ML CUP PO PRN (12:04)
[2018-05-01] MEDS ORDERED: DOCUSATE 100 MG CAP PO PRN (12:19)
[2018-05-01] MEDS ORDERED: ALBUTEROL INHALER 60 PUFF/8 GM INHALER INHALATION PRN (12:19)
[2018-05-01] MEDS ORDERED: IPRATROPIUM 0.5 MG/2.5 ML NEBU INHALATION PRN (12:19)
[2018-05-01] MEDS ORDERED: BUTALB/APAP/CAFF 50-325-40MG TAB PO PRN (12:19)
[2018-05-01] MEDS ORDERED: IPRATROPIUM-ALBUTEROL 3 ML NEB INHALATION PRN ×2 (12:19→14:57)
[2018-05-01 13:19] VITALS: BMI 51.0
[2018-05-01] MEDS: IBUPROFEN 800 MG TAB PO PRN (14:25)
[2018-05-01 17:27] LABS: Glucose,Whole Blood 133 mg/dL (75-99)
[2018-05-01] MEDS: metFORMIN 500 MG TAB PO SCH (17:37)
[2018-05-01] MEDS: ATORVASTATIN 80 MG TAB PO SCH (20:51)
[2018-05-01] MEDS: DIVALPROEX ER 250 MG TAB.ER.24H PO SCH (20:51)
[2018-05-01] MEDS: TOPIRAMATE 100 MG TAB PO SCH (20:52)
[2018-05-01] MEDS: PREGABALIN 75 MG CAP PO SCH (20:52)
[2018-05-01] MEDS ORDERED: risperiDONE 2 MG TAB PO SCH (21:00)
[2018-05-01] MEDS: SYMBICORT 160-4.5 MCG INHALER INHALATION SCH (21:58)
[2018-05-02 06:26] LABS: Glucose,Whole Blood 106 mg/dL (75-99)
[2018-05-02] MEDS: PANTOPRAZOLE 40 MG TABLET PO SCH (08:32)
[2018-05-02] MEDS: metFORMIN 500 MG TAB PO SCH ×2 (08:32→16:48)
[2018-05-02] MEDS: PREGABALIN 75 MG CAP PO SCH ×2 (08:32→21:29)
[2018-05-02] MEDS: TOPIRAMATE 100 MG TAB PO SCH ×2 (08:32→21:29)
[2018-05-02] MEDS: DIVALPROEX ER 250 MG TAB.ER.24H PO SCH ×2 (08:32→21:25)
[2018-05-02] MEDS: DULoxetine HCL 60 MG CAPSULE.DR PO SCH (08:32)
[2018-05-02] MEDS: SYMBICORT 160-4.5 MCG INHALER INHALATION SCH ×2 (09:29→21:35)
[2018-05-02 10:30] LABS: Basophils % (A) 0 %; Eosinophils # (A) 0.1 k/uL (0-0.7); Eosinophils % (A) 1 %; HCT 47.6 % (34.0-46.0); HGB 15.2 gm/dL (11.4-16.0); Lymphocytes # (A) 3.3 k/uL (1.0-4.8); Lymphocytes % (A) 36 %; MCHC 31.9 g/dL (31.0-37.0); MCV 87.9 fL (80.0-100.0); Mean Platelet Volume 7.8; Monocytes # (A) 0.7 k/uL (0-1.0); Monocytes % (A) 7 %; Neutrophils # (A) 4.9 k/uL (1.3-7.7); Neutrophils % (A) 54 %; Platelet Count 347 k/uL (150-450); RBC 5.41 m/uL (3.80-5.40); RDW 14.1 % (11.5-15.5)
[2018-05-02 10:50] LABS: ALT 17 U/L (9-52); AST 18 U/L (14-36); Albumin 3.6 g/dL (3.5-5.0); Alkaline Phosphatase 53 U/L (38-126); Anion Gap 8 mmol/L; Blood Urea Nitrogen 10 mg/dL (7-17); Calcium 9.3 mg/dL (8.4-10.2); Carbon Dioxide 26 mmol/L (22-30); Chloride 110 mmol/L (98-107); Cholesterol 162 mg/dL (<200); Glucose 120 mg/dL (74-99); HDL Cholesterol 27 mg/dL (40-60); Potassium 4.7 mmol/L (3.5-5.1); Sodium 144 mmol/L (137-145); Total Bilirubin 0.5 mg/dL (0.2-1.3); Total Protein 6.4 g/dL (6.3-8.2)
[2018-05-02 11:05] LABS: Triglycerides 553 mg/dL (<150)
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
[2018-05-02] MEDS ORDERED: NICOTINE POLACRILEX 2 MG GUM BUCCAL PRN (12:27)
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
[2018-05-02 16:41] LABS: Hemoglobin A1C 7.1 % (4.0-6.0)
[2018-05-02] MEDS: IBUPROFEN 800 MG TAB PO PRN (16:47)
[2018-05-02] MEDS: METHOCARBAMOL 750 MG TAB PO PRN (16:48)
[2018-05-02 17:46] LABS: Glucose,Whole Blood 111 mg/dL (75-99)
[2018-05-02] MEDS: INSULIN ASPART 100 UNIT/ML 1 ML 10 ML VIAL SQ SCH ×2 (17:56→21:26)
[2018-05-02 20:30] LABS: Glucose,Whole Blood 104 mg/dL (75-99)
[2018-05-02] MEDS ORDERED: PALIPERIDONE 3 MG TAB.ER.24 PO SCH (21:00)
[2018-05-02] MEDS: ATORVASTATIN 80 MG TAB PO SCH (21:26)
[2018-05-02] MEDS: FENOFIBRATE 160 MG TAB PO SCH (21:26)
[2018-05-03] MEDS: SYMBICORT 160-4.5 MCG INHALER INHALATION SCH ×3 (01:37→19:04)
[2018-05-03 07:35] LABS: Glucose,Whole Blood 135 mg/dL (75-99)
[2018-05-03] MEDS: INSULIN ASPART 100 UNIT/ML 1 ML 10 ML VIAL SQ SCH ×4 (07:45→21:45)
[2018-05-03] MEDS: DULoxetine HCL 60 MG CAPSULE.DR PO SCH (07:56)
[2018-05-03] MEDS: TOPIRAMATE 100 MG TAB PO SCH ×2 (07:56→21:45)
[2018-05-03] MEDS: metFORMIN 500 MG TAB PO SCH ×2 (07:56→17:28)
[2018-05-03] MEDS: DIVALPROEX ER 250 MG TAB.ER.24H PO SCH ×2 (07:56→21:44)
[2018-05-03] MEDS: PREGABALIN 75 MG CAP PO SCH ×2 (07:56→21:47)
[2018-05-03] MEDS: PANTOPRAZOLE 40 MG TABLET PO SCH (07:57)
[2018-05-03] MEDS: IBUPROFEN 800 MG TAB PO PRN ×2 (07:57→21:47)
[2018-05-03] MEDS: METHOCARBAMOL 750 MG TAB PO PRN (08:43)
[2018-05-03 10:39] LABS: Appearance,Urine Cloudy (Clear); Bacteria,Urine Rare /hpf; Bilirubin,Urine 1+ (Negative); Blood,Urine Negative (Negative); Calcium Oxalate Crystals,Urine Few /hpf; Color,Urine Yellow; Glucose,Urine (UA) Negative (Negative); Ketones,Urine 1+ (Negative); Leukocyte Esterase,Urine Negative (Negative); Mucus,Urine Many /hpf; Nitrite,Urine Negative (Negative); PH, Urine 6.5 (5.0-8.0); Protein,Urine 1+ (Negative); Squamous Epithelial Cell,Urine 12 /hpf (0-4); WBC,Urine 7 /hpf (0-5)
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
[2018-05-03 12:54] LABS: Glucose,Whole Blood 103 mg/dL (75-99)
[2018-05-03] MEDS: hydrOXYzine PAMOATE 25 MG CAP PO PRN (16:28)
[2018-05-03 17:18] LABS: Glucose,Whole Blood 112 mg/dL (75-99)
[2018-05-03 20:21] LABS: Glucose,Whole Blood 116 mg/dL (75-99)
[2018-05-03] MEDS ORDERED: PALIPERIDONE 6 MG TAB.ER.24 PO SCH (21:00)
[2018-05-03] MEDS ORDERED: hydrALAZINE HCL 25 MG TAB PO SCH (21:00)
[2018-05-03] MEDS: ATORVASTATIN 80 MG TAB PO SCH (21:44)
[2018-05-03] MEDS: FENOFIBRATE 160 MG TAB PO SCH (21:45)
[2018-05-04 06:35] LABS: Glucose,Whole Blood 106 mg/dL (75-99)
[2018-05-04] MEDS: INSULIN ASPART 100 UNIT/ML 1 ML 10 ML VIAL SQ SCH ×3 (08:35→17:25)
[2018-05-04] MEDS: DIVALPROEX ER 250 MG TAB.ER.24H PO SCH (08:36)
[2018-05-04] MEDS: metFORMIN 500 MG TAB PO SCH ×2 (08:36→17:25)
[2018-05-04] MEDS: PANTOPRAZOLE 40 MG TABLET PO SCH (08:36)
[2018-05-04] MEDS: DULoxetine HCL 60 MG CAPSULE.DR PO SCH (08:37)
[2018-05-04] MEDS: PREGABALIN 75 MG CAP PO SCH (08:38)
[2018-05-04] MEDS: TOPIRAMATE 100 MG TAB PO SCH (08:38)
[2018-05-04] MEDS: IBUPROFEN 800 MG TAB PO PRN (08:39)
[2018-05-04] MEDS: SYMBICORT 160-4.5 MCG INHALER INHALATION SCH (08:51)
[2018-05-04] MEDS: METHOCARBAMOL 750 MG TAB PO PRN (11:18)
[2018-05-04 12:52] LABS: Glucose,Whole Blood 112 mg/dL (75-99)
[2018-05-04] MEDS: hydrOXYzine PAMOATE 25 MG CAP PO PRN (15:13)
[2018-05-04 17:26] LABS: Glucose,Whole Blood 106 mg/dL (75-99)
[2018-05-04 19:59] LABS: Glucose,Whole Blood 112 mg/dL (75-99)
[2018-05-04] MEDS ORDERED: DIVALPROEX ER 500 MG TAB.ER.24H PO SCH (21:00)
[2018-05-04] MEDS ORDERED: PALIPERIDONE 3 MG TAB.ER.24 PO SCH (21:00)
[2018-05-05] MEDS: METHOCARBAMOL 750 MG TAB PO PRN (00:14)
[2018-05-05 01:30] VITALS: BP 155/58; PULSE 76; RESP 16; TEMP 97.6
[2018-05-05 06:46] LABS: Glucose,Whole Blood 106 mg/dL (75-99)
[2018-05-05] MEDS: INSULIN ASPART 100 UNIT/ML 1 ML 10 ML VIAL SQ SCH ×2 (07:44→12:18)
[2018-05-05] MEDS: DULoxetine HCL 60 MG CAPSULE.DR PO SCH (08:17)
[2018-05-05] MEDS: PANTOPRAZOLE 40 MG TABLET PO SCH (08:17)
[2018-05-05] MEDS: PREGABALIN 75 MG CAP PO SCH (08:19)
[2018-05-05] MEDS: metFORMIN 500 MG TAB PO SCH (08:19)
[2018-05-05] MEDS: SYMBICORT 160-4.5 MCG INHALER INHALATION SCH ×2 (08:59→09:00)
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
[2018-05-05 12:08] LABS: Glucose,Whole Blood 108 mg/dL (75-99)
[2018-05-07] MEDS ORDERED: ERGOCALCIFEROL 50,000 UNIT CAP PO SCH (12:00)
== END 2018-05-05 14:09 | disposition home or self-care (01) | DRG 885 ==
LOC: EC 23:39 → 3MHU 05-01 12:02
PROVIDERS: ADMIT Psychiatry & Neurology Psychiatry; ATTEND Psychiatry & Neurology Psychiatry
DX: F32.3 Major depressive disorder, single episode, severe with psychotic features (principal); R45.851 Suicidal ideations; E11.9 Type 2 diabetes mellitus without complications; E78.5 Hyperlipidemia, unspecified; F17.200 Nicotine dependence, unspecified, uncomplicated; F40.00 Agoraphobia, unspecified; F40.240 Claustrophobia; F43.10 Post-traumatic stress disorder, unspecified; G47.33 Obstructive sleep apnea (adult) (pediatric); J44.9 Chronic obstructive pulmonary disease, unspecified; K21.9 Gastro-esophageal reflux disease without esophagitis; M79.7 Fibromyalgia; Z79.51 Long term (current) use of inhaled steroids; Z81.8 Family history of other mental and behavioral disorders; Z82.49 Family history of ischemic heart disease and other diseases of the circulatory system; Z83.3 Family history of diabetes mellitus; Z85.41 Personal history of malignant neoplasm of cervix uteri; Z87.01 Personal history of pneumonia (recurrent); Z90.710 Acquired absence of both cervix and uterus; Z91.19 Patient's noncompliance with other medical treatment and regimen; Z79.899 Other long term (current) drug therapy; Z79.84 Long term (current) use of oral hypoglycemic drugs; Z88.8 Allergy status to other drugs, medicaments and biological substances; Z90.49 Acquired absence of other specified parts of digestive tract
CPT/HCPCS: 36415; 80053; 80061; 80164; 80201; 80306; 81001; 81003; 81025; 82140; 83036; 84443; 85025; 87324; 94640; 99285

== ENCOUNTER 2018-05-26 01:52 | Emergency (ER) | payer OTHER ==
[2018-05-26] MEDS ORDERED: IPRATROPIUM-ALBUTEROL 3 ML NEB INHALATION STA ×2 (02:23→07:34)
[2018-05-26 02:42] LABS: Basophils % (A) 0 %; Eosinophils # (A) 0.1 k/uL (0-0.7); Eosinophils % (A) 1 %; HCT 41.8 % (34.0-46.0); HGB 12.9 gm/dL (11.4-16.0); Lymphocytes % (A) 28 %; MCH 27.4 pg (25.0-35.0); MCV 88.4 fL (80.0-100.0); Monocytes # (A) 0.7 k/uL (0-1.0); Monocytes % (A) 6 %; Neutrophils % (A) 63 %; Platelet Count 341 k/uL (150-450); RBC 4.72 m/uL (3.80-5.40); RDW 15.4 % (11.5-15.5)
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
[2018-05-26 02:51] LABS: ALT 17 U/L (9-52); AST 16 U/L (14-36); Albumin 3.1 g/dL (3.5-5.0); Alkaline Phosphatase 50 U/L (38-126); Anion Gap 8 mmol/L; Blood Urea Nitrogen 9 mg/dL (7-17); Calcium 8.9 mg/dL (8.4-10.2); Carbon Dioxide 22 mmol/L (22-30); Chloride 109 mmol/L (98-107); Glucose 121 mg/dL (74-99); Potassium 4.5 mmol/L (3.5-5.1); Sodium 139 mmol/L (137-145); Total Bilirubin 0.3 mg/dL (0.2-1.3); Total Protein 5.7 g/dL (6.3-8.2)
[2018-05-26 02:56] LABS: INR 0.9 (<1.2); Partial Thromboplastin Time 23.2 sec (22.0-30.0); Prothrombin Time 9.5 sec (9.0-12.0)
--- NOTE | 2018-05-26 03:11 | XR ---
EXAMINATION TYPE: XR chest 2V DATE OF EXAM: 05/26/2018 COMPARISON: 03/10/2018 HISTORY: Right leg swelling TECHNIQUE: Frontal and lateral views of the chest are obtained. FINDINGS: There is no heart failure nor confluent pneumonic infiltrate. Costophrenic angles are nba r. Bony thorax is intact. There are chest leads. IMPRESSION: No active cardiopulmonary disease. No adverse change compared to old exam.
--- NOTE | 2018-05-26 05:33 | US ---
EXAM: US Duplex Right Lower Extremity Veins CLINICAL HISTORY: Pain. TECHNIQUE: Real-time duplex ultrasound scan of the right lower extremity veins integrating B-mode two-dimensional vascular structure, Doppler spectral analysis, color flow Doppler imaging and compression. COMPARISON: 10/14/2015. FINDINGS: Deep veins: Unremarkable. No DVT in the visualized external iliac, common femoral, femoral, proximal deep femoral or popliteal veins. The veins demonstrate normal color flow, are normally compressible, with normal phasic flow and/or augmentation response. Superficial veins: Unremarkable. No thrombus in the visualized great saphenous vein. Soft tissues: No acute findings. No popliteal cyst. IMPRESSION: No evidence of DVT.
[2018-05-26 08:26] VITALS: BP 99/56; PULSE 72; RESP 18; TEMP 97.8
== END 2018-05-26 08:26 | disposition home or self-care (01) ==
LOC: EC 01:52
DX: J44.9 Chronic obstructive pulmonary disease, unspecified (principal); R60.0 Localized edema; M79.7 Fibromyalgia; E78.5 Hyperlipidemia, unspecified; G40.909 Epilepsy, unspecified, not intractable, without status epilepticus; E11.40 Type 2 diabetes mellitus with diabetic neuropathy, unspecified; G43.909 Migraine, unspecified, not intractable, without status migrainosus; I50.9 Heart failure, unspecified; F41.9 Anxiety disorder, unspecified; F43.10 Post-traumatic stress disorder, unspecified; F25.1 Schizoaffective disorder, depressive type; F25.0 Schizoaffective disorder, bipolar type; F17.200 Nicotine dependence, unspecified, uncomplicated; G47.33 Obstructive sleep apnea (adult) (pediatric); Z99.89 Dependence on other enabling machines and devices; Z85.41 Personal history of malignant neoplasm of cervix uteri; Z79.84 Long term (current) use of oral hypoglycemic drugs; Z79.899 Other long term (current) drug therapy; Z88.6 Allergy status to analgesic agent; Z88.8 Allergy status to other drugs, medicaments and biological substances; Z91.048 Other nonmedicinal substance allergy status; Z91.018 Allergy to other foods; Z82.49 Family history of ischemic heart disease and other diseases of the circulatory system
CPT/HCPCS: 36415; 71046; 80053; 83735; 83880; 85025; 85610; 85730; 93005; 94640; 99284

== ENCOUNTER 2018-06-13 21:05 | Emergency (ER) | payer OTHER ==
[2018-06-13 21:13] VITALS: RESP 18
[2018-06-13] MEDS ORDERED: MORPHINE SULFATE 4 MG/ML SYRINGE IV STA (21:27)
[2018-06-13] MEDS ORDERED: ONDANSETRON 4 MG/2 ML VIAL IVP STA (21:27)
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
[2018-06-13 22:22] LABS: Basophils % (A) 0 %; Eosinophils # (A) 0.2 k/uL (0-0.7); Eosinophils % (A) 1 %; HCT 41.8 % (34.0-46.0); HGB 13.2 gm/dL (11.4-16.0); Lymphocytes # (A) 3.5 k/uL (1.0-4.8); Lymphocytes % (A) 32 %; MCH 27.3 pg (25.0-35.0); MCHC 31.7 g/dL (31.0-37.0); MCV 86.2 fL (80.0-100.0); Mean Platelet Volume 6.4; Monocytes # (A) 0.6 k/uL (0-1.0); Monocytes % (A) 5 %; Neutrophils # (A) 6.7 k/uL (1.3-7.7); Neutrophils % (A) 60 %; Platelet Count 344 k/uL (150-450); RBC 4.84 m/uL (3.80-5.40); RDW 15.2 % (11.5-15.5); WBC 11.2 k/uL (3.8-10.6)
--- NOTE | 2018-06-13 22:27 | XR ---
EXAMINATION TYPE: XR KUB DATE OF EXAM: 06/13/2018 COMPARISON: 06/12/2014 HISTORY: Right-sided groin pain TECHNIQUE: 2 views FINDINGS: 2 upright views show no sign of intestinal obstruction or pneumoperitoneum. Fecal pattern i s normal. There is no evidence of a mass. There are no pathologic indications over the kidneys. IMPRESSION: Nonacute abdomen. No change.
[2018-06-13 22:32] LABS: ALT 21 U/L (9-52); AST 24 U/L (14-36); Albumin 3.6 g/dL (3.5-5.0); Alkaline Phosphatase 58 U/L (38-126); Anion Gap 7 mmol/L; Blood Urea Nitrogen 9 mg/dL (7-17); Calcium 9.2 mg/dL (8.4-10.2); Carbon Dioxide 22 mmol/L (22-30); Chloride 109 mmol/L (98-107); Glucose 88 mg/dL (74-99); Potassium 4.7 mmol/L (3.5-5.1); Sodium 138 mmol/L (137-145); Total Bilirubin 0.4 mg/dL (0.2-1.3); Total Protein 6.2 g/dL (6.3-8.2)
[2018-06-13 22:44] LABS: Appearance,Urine Cloudy (Clear); Bilirubin,Urine Negative (Negative); Blood,Urine Negative (Negative); Color,Urine Yellow; Glucose,Urine (UA) Negative (Negative); Ketones,Urine Trace (Negative); Leukocyte Esterase,Urine Negative (Negative); Mucus,Urine Moderate /hpf; Nitrite,Urine Negative (Negative); PH, Urine 6.5 (5.0-8.0); Protein,Urine 1+ (Negative); RBC,Urine 1 /hpf (0-5); Specific Gravity,Urine 1.028 (1.001-1.035); Squamous Epithelial Cell,Urine 15 /hpf (0-4)
--- NOTE | 2018-06-13 23:28 | US ---
EXAMINATION TYPE: US transvaginal DATE OF EXAM: 06/13/2018 COMPARISON: NONE CLINICAL HISTORY: Pain. Pain partial hysterectomy. TECHNIQUE: Transvaginal (TV). EXAM MEASUREMENTS: Uterus: Surgically absent cm Endometrial Stripe: Surgically absent cm Right Ovary: 2.5 x 1.8 x 2.1 cm 1. Uterus: Surgically absent 2. Endometrium: Surgically absent 3. Right Ovary: Hyperechoic area seen 1.1 x 1.0 x 1.0cm. 4. Left Ovary: Obscured by overlying bowel gas Spectral, color and waveform doppler imaging shows good arterial and venous flow within the right o vary; there is no evidence for ovarian torsion. 5. Bilateral Adnexa: wnl 6. Posterior cul-de-sac: wnl IMPRESSION: No adnexal mass or free fluid. Right ovary is seen and shows no evidence of torsion. Hyst erectomy noted.
[2018-06-14] MEDS ORDERED: MORPHINE SULFATE/PF 10MG/10ML VL IVP PRN (00:20)
[2018-06-14] MEDS ORDERED: MORPHINE SULFATE 4 MG/ML SYRINGE IVP STA (00:34)
[2018-06-14 00:38] VITALS: BP 106/69; PULSE 78; TEMP 97.5
== END 2018-06-14 00:40 | disposition home or self-care (01) ==
LOC: EC 21:05
DX: R10.2 Pelvic and perineal pain (principal); R11.0 Nausea; J44.9 Chronic obstructive pulmonary disease, unspecified; E11.9 Type 2 diabetes mellitus without complications; M79.7 Fibromyalgia; E78.5 Hyperlipidemia, unspecified; M19.90 Unspecified osteoarthritis, unspecified site; G62.9 Polyneuropathy, unspecified; G40.909 Epilepsy, unspecified, not intractable, without status epilepticus; G47.33 Obstructive sleep apnea (adult) (pediatric); F41.9 Anxiety disorder, unspecified; F31.9 Bipolar disorder, unspecified; F25.9 Schizoaffective disorder, unspecified; F17.200 Nicotine dependence, unspecified, uncomplicated; Z99.89 Dependence on other enabling machines and devices; Z87.01 Personal history of pneumonia (recurrent); Z85.41 Personal history of malignant neoplasm of cervix uteri; Z90.49 Acquired absence of other specified parts of digestive tract; Z90.710 Acquired absence of both cervix and uterus; Z98.1 Arthrodesis status; Z98.890 Other specified postprocedural states; Z79.84 Long term (current) use of oral hypoglycemic drugs; Z79.899 Other long term (current) drug therapy; Z88.6 Allergy status to analgesic agent; Z88.8 Allergy status to other drugs, medicaments and biological substances; Z91.048 Other nonmedicinal substance allergy status
CPT/HCPCS: 36415; 80053; 85025; 81001; 81025; 74018; 93976; 76830; 99285; 96374; 96375; 96376; J2270; J2405

== ENCOUNTER 2019-02-20 19:36 | Emergency (ER) | payer OTHER ==
[2019-02-20 20:00] VITALS: RESP 18
[2019-02-20 21:03] LABS: Glucose,Whole Blood 94 mg/dL (75-99)
[2019-02-20 21:22] LABS: Amphetamine Screen,Urine Not Detected (NotDetected); Barbiturate Screen,Urine Not Detected (NotDetected); Benzodiazepines Screen,Urine Not Detected (NotDetected); Cocaine Screen,Urine Not Detected (NotDetected); Methadone Screen, Urine Not Detected (NotDetected); Opiate Screen,Urine Not Detected (NotDetected); Oxycodone Screen, Urine Not Detected (NotDetected); Phencyclidine Screen,Urine Not Detected (NotDetected); Tricyclic Antidepressant,Urine Not Detected (NotDetected); Urn Cannabinoid Scrn Detected (NotDetected)
[2019-02-20 23:03] LABS: Basophils % (A) 0 %; Eosinophils # (A) 0.1 k/uL (0-0.7); Eosinophils % (A) 1 %; HCT 35.3 % (34.0-46.0); HGB 12.2 gm/dL (11.4-16.0); Lymphocytes % (A) 42 %; MCH 30.1 pg (25.0-35.0); MCHC 34.6 g/dL (31.0-37.0); MCV 87.2 fL (80.0-100.0); Mean Platelet Volume 6.5; Monocytes # (A) 0.6 k/uL (0-1.0); Monocytes % (A) 6 %; Neutrophils # (A) 4.8 k/uL (1.3-7.7); Neutrophils % (A) 50 %; Platelet Count 278 k/uL (150-450); RBC 4.04 m/uL (3.80-5.40); RDW 13.8 % (11.5-15.5); WBC 9.6 k/uL (3.8-10.6)
[2019-02-20 23:15] LABS: Acetaminophen <10.0 ug/mL; African American GFR (CKD) >90 (>60 ml/min/1.73 sqM); Anion Gap 9 mmol/L; Blood Urea Nitrogen 11 mg/dL (7-17); Calcium 9.3 mg/dL (8.4-10.2); Carbon Dioxide 21 mmol/L (22-30); Chloride 114 mmol/L (98-107); Glucose 88 mg/dL (74-99); Potassium 3.7 mmol/L (3.5-5.1); Salicylate <1.0 mg/dL; Sodium 144 mmol/L (137-145)
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
[2019-02-21 09:40] LABS: Glucose,Whole Blood 98 mg/dL (75-99)
[2019-02-21 12:01] VITALS: BP 110/68; PULSE 77; TEMP 98
== END 2019-02-21 12:29 ==
LOC: EC 19:36 → EEVIPCON 19:36 → EC 02-21 12:29
DX: F32.3 Major depressive disorder, single episode, severe with psychotic features (principal); R45.851 Suicidal ideations; F41.9 Anxiety disorder, unspecified; E11.9 Type 2 diabetes mellitus without complications; E78.5 Hyperlipidemia, unspecified; F17.200 Nicotine dependence, unspecified, uncomplicated; G40.909 Epilepsy, unspecified, not intractable, without status epilepticus; J44.9 Chronic obstructive pulmonary disease, unspecified; K21.9 Gastro-esophageal reflux disease without esophagitis; M19.90 Unspecified osteoarthritis, unspecified site; G47.30 Sleep apnea, unspecified; M79.7 Fibromyalgia; Z79.899 Other long term (current) drug therapy; Z85.41 Personal history of malignant neoplasm of cervix uteri; Z88.6 Allergy status to analgesic agent; Z91.048 Other nonmedicinal substance allergy status; Z88.8 Allergy status to other drugs, medicaments and biological substances; Z99.89 Dependence on other enabling machines and devices; Z79.84 Long term (current) use of oral hypoglycemic drugs
CPT/HCPCS: 82075; 36415 ×2; 80048; 85025; 80306; 83520; 99285; G0480; 80329

== ENCOUNTER → 2019-11-21 | Outpatient (CLI) | payer OTHER ==
--- NOTE | 2019-11-21 15:13 | SLS ---
SLEEP STUDY ADDENDUM: Michael Ruiz MD, PhD, FAASM Diplomat of [employer] Magistrate of [facility] [place] MMODESSAL / CORDELIAN: [id number] /
--- NOTE | 2019-11-21 15:13 | CONS ---
CONSULTATION DATE OF SERVICE: 11/21/2019. HISTORY OF PRESENT ILLNESS SLEEP WAKE EVALUATION: 44-year-old lady has been evaluated in the [facility] for obstructive sleep apnea- hypopnea syndrome. The patient has obstructive sleep apnea for many years. Did not have any sleep studies for more than seven years. She has significantly changed her weight 100 pounds down from the previous sleep study. SLEEP SCHEDULE: The patient usual sleep schedule from 10 p.m. to 7 a.m. FALLING ASLEEP: She does have problem with falling asleep. Has TV set in bedroom. DURING SLEEP: Usually sleeps on the side position. Snores, has episodes of stopped breathing during the sleep awakenings with nocturia, dry mouth, panic attack, heartburn. DURING THE DAY/SLEEP WAKE EVALUATION: In the morning, the patient has problems with memory concentration and depression anxiety, claustrophobia, sexual dysfunction and difficulties to pay attention. [place] Sleepiness Scale is 1. PAST MEDICAL HISTORY: Positive for depression, anxiety, bipolar disorder, PTSD, asthma, COPD, fibromyalgia, migraine, diabetes mellitus, acid reflux. PAST SURGICAL HISTORY: Neck surgery, right knee surgery, cholecystectomy, partial hysterectomy, right ankle surgery. MEDICATIONS: Invega, Ventolin, metformin, Lipitor, ibuprofen, albuterol, omeprazole, Fioricet, vitamin D2, Singular, Gabapentin, Methocarbamol, hydroxyzine, Depakote, Topamax, Trintellix, Serevent, QVAR. SOCIAL HISTORY: Positive for smoking and using alcohol. PHYSICAL EXAM: lady without distress, BP 116/77, HR 84, RR 16, height 5 feet 4 inches, weight 227 with body mass index 38.9, temperature 98.0, oxygen saturation at room air 98%. Oropharynx moderately low position of soft palate. Neck 15 inches in circumference. NECK: Supple, no JVD. Thyroid is not palpable. LUNGS: Clear to percussion and to auscultation. Good air exchange. No wheezing or rhonchi. HEART: S1, S2 regular. No murmurs, gallops, or rubs. ABDOMEN: Obese. EXTREMITIES: No clubbing or cyanosis. CONTOUR BAND SAW OPERATOR VERTICAL: Awake, alert, and oriented X3. Cranial nerves 2 to 7 intact. There is no fasciculation or atrophy. noted. No focal deficits observed. IMPRESSION: 1. Snoring episodes of stopped breathing during sleep, awakenings from sleep, low position of soft palate, history of obstructive sleep apnea in the past. The patient is on treatment with CPAP but has lost about 100 pounds since previous sleep studies. 2. Obesity BMI 38.9. 3. History of asthma and chronic obstructive pulmonary disease. 4. Diabetes mellitus. 5. Acid reflux. 6. History of anxiety. 7. History of depression. 8. History of bipolar. 9. History of PTSD. 10.History of fibromyalgia. 11.History of migraine. 12.Status post neck surgery. 13.Status post right knee surgery. 14.Status post cholecystectomy. 15.Status post partial hysterectomy. 16.Status post ankle surgery. PLAN: 1. Polysomnography for evaluation of patient's breathing during sleep. 2. CPAP/BiPAP titration if sleep study confirms obstructive sleep apnea-hypopnea syndrome. 3. Preferable position during sleep on the side. 4. No driving if patient feels any sleepiness. 5. I will see patient for follow up visit to explain results of testing and following plan. Thank you very much for referring this patient for consultation. Sincerely, MMODL / IJN: [id number] /
== END | disposition home or self-care (01) ==
LOC: SLEEP 10:24
PROVIDERS: ATTEND Internal Medicine
DX: R06.83 Snoring (principal); E66.9 Obesity, unspecified; Z68.38 Body mass index [BMI] 38.0-38.9, adult; E11.9 Type 2 diabetes mellitus without complications; K21.9 Gastro-esophageal reflux disease without esophagitis; Z86.59 Personal history of other mental and behavioral disorders; Z87.09 Personal history of other diseases of the respiratory system; Z87.39 Personal history of other diseases of the musculoskeletal system and connective tissue; Z86.69 Personal history of other diseases of the nervous system and sense organs; Z96.651 Presence of right artificial knee joint; Z90.49 Acquired absence of other specified parts of digestive tract; Z90.711 Acquired absence of uterus with remaining cervical stump; Z98.890 Other specified postprocedural states; F17.200 Nicotine dependence, unspecified, uncomplicated; Z79.84 Long term (current) use of oral hypoglycemic drugs; Z79.1 Long term (current) use of non-steroidal anti-inflammatories (NSAID); Z79.899 Other long term (current) drug therapy
CPT/HCPCS: 99211

== ENCOUNTER → 2020-01-23 | Outpatient (CLI) | payer OTHER ==
--- NOTE | 2020-01-24 09:25 | US ---
EXAMINATION TYPE: US transvaginal DATE OF EXAM: 01/23/2020 COMPARISON: 06/13/2018 CLINICAL HISTORY: 44-year-old female R10.2 Pelvic pain. Partial hysterectomy 2012, pelvic cramping, p ainful intercourse TECHNIQUE: Transvaginal (TV) Date of LMP: unknown FINDINGS: EXAM MEASUREMENTS: Uterus: Surgically absent Right Ovary: 2.6 x 1.3 x 1.4 cm Left Ovary: unable to visualize 1. Uterus: Surgically absent 2. Endometrium: Surgically absent 3. Right Ovary: hyperechoic area with shadowing = 0.9 x 0.6 x 0.9cm (versus 1 cm, previously). 4. Left Ovary: unable to visualize 5. Bilateral Adnexa: appears wnl IMPRESSION: 1. Status post hysterectomy. Unable to visualize the left ovary. 2. Recommend 6 month follow-up to reassess the right ovary. A 9 mm nodule within the right ovary, whi le smaller as compared to 1 cm, previously, now show some shadowing. 3. No pelvic free fluid.
== END | disposition home or self-care (01) ==
LOC: RADUSWWP 16:43
PROVIDERS: ATTEND Family Medicine
DX: N83.8 Other noninflammatory disorders of ovary, fallopian tube and broad ligament (principal); Z90.710 Acquired absence of both cervix and uterus; Z88.6 Allergy status to analgesic agent; Z88.8 Allergy status to other drugs, medicaments and biological substances; Z91.018 Allergy to other foods; Z91.048 Other nonmedicinal substance allergy status
CPT/HCPCS: 76830

== ENCOUNTER → 2020-01-29 | Day surgery (SDC) | payer OTHER ==
[2020-01-25 10:21] VITALS: BMI 39.6
[~2020-01-29] MED LIST changes: +LACTATED RINGERS 1,000 ML IV ONE; +LIDOCAINE 1% (10MG/ML) FOR IV START INTRADERMA PRN; +LIDOCAINE 1% INJ 10MG/ML (20 ML MDV) ONE; +PROPOFOL 10 MG/ML 20 ML VIAL IV ONE
[2020-01-29 08:15] VITALS: RESP 16; TEMP 96.8
[2020-01-29 08:23] LABS: Glucose,Whole Blood 109 mg/dL (75-99)
--- NOTE | 2020-01-29 09:21 | P.PCN ---
Date of Procedure: 01/29/20 Description of Procedure: BRIEF HISTORY: Patient is a 44-year-old female with a known history of Lyn's esophagus and gastroesophageal reflux disease presents for outpatient EGD for evaluation of Lyn's esophagus. Short segment Lyn's esophagus previously noted. Last EGD 2017. Patient currently on PPI therapy. PROCEDURE PERFORMED: Esophagogastroduodenoscopy with biopsy. PREOPERATIVE DIAGNOSIS: Lyn's esophagus. ESTIMATED BLOOD LOSS: Minimal. IV sedation per anesthesia. PROCEDURE: After informed consent was obtained, the patient was brought into the endoscopy unit. IV sedation was administered by Anesthesia under continuous monitoring. Initially the Olympus GIF-190 video endoscope was inserted into the mouth. Esophagus intubated without any difficulty. It was gradually advanced into the stomach and duodenum and carefully examined. The bulb and the second part of the duodenum appeared normal, with biopsies taken. The scope at this time was withdrawn to the stomach, adequately insufflated with air, and upon careful examination, mucosa of the antrum, body, cardia and the fundus appeared normal, except for some retained food debris in the stomach with biopsies of the antrum and body taken. The scope was then withdrawn into the esophagus. The GE junction was located at 38 cm from the incisors, with biopsies taken of the lower esophagus in the setting of history of Lyn's esophagus. A small 2 cm hiatal hernia was noted. The esophagus appeared normal. There were no erosions or ulcerations seen and the patient tolerated the procedure well. IMPRESSION: 1. Lyn's esophagus, biopsied. 2. Biopsies of the duodenum and antrum and body. 3. Small hiatal hernia. 4. Retained food in the stomach. RECOMMENDATIONS: The findings of this examination were discussed with the patient and her boyfriend. Okay to resume diet. Okay to resume medications. Follow-up in GI clinic as previously scheduled. Continue PPI therapy..
[2020-01-29 09:37] VITALS: BP 129/74; PULSE 69
== END ==
LOC: ORWHC2ENDO 07:58
PROVIDERS: ATTEND Internal Medicine
DX: K22.70 Barrett's esophagus without dysplasia (principal); K29.50 Unspecified chronic gastritis without bleeding; Z79.84 Long term (current) use of oral hypoglycemic drugs; Z79.1 Long term (current) use of non-steroidal anti-inflammatories (NSAID); Z79.52 Long term (current) use of systemic steroids; Z79.899 Other long term (current) drug therapy; Z88.5 Allergy status to narcotic agent; Z88.8 Allergy status to other drugs, medicaments and biological substances; Z91.018 Allergy to other foods; Z91.048 Other nonmedicinal substance allergy status; Z98.890 Other specified postprocedural states; Z90.49 Acquired absence of other specified parts of digestive tract; Z90.710 Acquired absence of both cervix and uterus; E78.5 Hyperlipidemia, unspecified; F17.200 Nicotine dependence, unspecified, uncomplicated; G47.33 Obstructive sleep apnea (adult) (pediatric); J44.9 Chronic obstructive pulmonary disease, unspecified; M79.7 Fibromyalgia; M19.90 Unspecified osteoarthritis, unspecified site; Z97.2 Presence of dental prosthetic device (complete) (partial); K21.9 Gastro-esophageal reflux disease without esophagitis; K44.9 Diaphragmatic hernia without obstruction or gangrene
CPT/HCPCS: 88305; 43239; J2001; J2704

== ENCOUNTER → 2020-03-26 | Outpatient (CLI) | payer OTHER ==
[~2020-03-26] MED LIST changes: +IODINE/POTASS IOD (LUGOLS) BOTTLE TOPICAL ONE; -LACTATED RINGERS 1,000 ML IV ONE; -LACTATED RINGERS 1,000 ML IV SCH; -LIDOCAINE 1% (10MG/ML) FOR IV START INTRADERMA PRN; -LIDOCAINE 1% INJ 10MG/ML (20 ML MDV) ONE; -PROPOFOL 10 MG/ML 20 ML VIAL IV ONE
--- NOTE | 2020-03-26 16:25 | NM ---
EXAMINATION TYPE: NM DatScan Brain SPECT DATE OF EXAM: 03/26/2020 COMPARISON: NONE HISTORY: Tremors, G 25 TECHNIQUE: 10 drops of Lugol's solution was administered 1 hour prior to injection as a thyroid bloc kandy agent. After the administration of 4.75 mCi I-123 Ioflupane DaTscan. Images obtained 3 hours p ost injection. SPECT images of the brain were acquired with axial and coronal reconstructions. FINDINGS: Uptake along the striata is normal. Uptake is symmetric. IMPRESSION: Normal REUBEN scan
== END | disposition home or self-care (01) ==
LOC: RADNMMAIN 10:56
PROVIDERS: ATTEND Psychiatry & Neurology Neurology
DX: G25.0 Essential tremor (principal)
CPT/HCPCS: 78803; A9584

== ENCOUNTER → 2020-03-27 | Outpatient (CLI) | payer OTHER ==
--- NOTE | 2020-03-31 10:23 | MM ---
Reason for exam: screening (asymptomatic). Last mammogram was performed 7 years and 3 months ago. Physical Findings: A clinical breast exam by your physician is recommended on an annual basis and results should be correlated with mammographic findings. MG Screening Mammo w CAD Bilateral CC and MLO view(s) were taken. Prior study comparison: December 21, 2012, bilateral digital screening mammo w/CAD. There are scattered fibroglandular densities. Benign appearing bilateral calcifications. No significant changes when compared with prior studies. ASSESSMENT: Benign, BI-RAD 2 RECOMMENDATION: Routine screening mammogram of both breasts in 1 year.
== END | disposition home or self-care (01) ==
LOC: RADMAMWWP 13:31
PROVIDERS: ATTEND Family Medicine
DX: Z12.31 Encounter for screening mammogram for malignant neoplasm of breast (principal)
CPT/HCPCS: 77067

== ENCOUNTER → 2020-04-02 | Outpatient (CLI) | payer OTHER ==
[2020-04-02 18:36] LABS: African American GFR (CKD) >90 (>60 ml/min/1.73 sqM); Blood Urea Nitrogen 9 mg/dL (7-17); Non-African American GFR(CKD) >90 (>60 ml/min/1.73 sqM)
--- NOTE | 2020-04-02 19:37 | CT ---
EXAMINATION TYPE: CT chest wo/w con DATE OF EXAM: April 02, 2020 COMPARISON: CTA chest July 31, 2015. Recent chest x-ray is not available were performed at this [facility]. HISTORY: Abnormal CXR findings CT DLP: 1237.8 mGycm. Automated Exposure Control for Dose Reduction was Utilized. TECHNIQUE: CT scan of the thorax is performed following without and with IV Contrast, patient inject ed with 100 mL of Isovue 300. FINDINGS: LUNGS: Focal consolidation or atelectasis in the lingula axial image 37 measuring roughly 2.2 x 1.0 c m. Focal 3 mm subpleural nodule left lower lobe axial image 37. The right lung is clear. No pleural e ffusion or pneumothorax seen bilaterally. There is no pleural effusion or pneumothorax seen. The tra cheobronchial tree is patent. MEDIASTINUM: There are no greater than 1 cm hilar or mediastinal lymph nodes. Stable prominent but velasquez bcentimeter right hilar nodes. Persistent calcified left hilar lymph nodes. No cardiomegaly or peric ardial effusion is seen. OTHER: Cholecystectomy clips.. IMPRESSION: No concerning greater than 4 mm nodules or adenopathy. Small focus of chronic consolidati on/atelectasis in the lingula otherwise the lungs are clear.
== END | disposition home or self-care (01) ==
LOC: RADCTMAIN 17:52
PROVIDERS: ATTEND Family Medicine
DX: J98.11 Atelectasis (principal); R91.8 Other nonspecific abnormal finding of lung field; Z88.8 Allergy status to other drugs, medicaments and biological substances; Z91.048 Other nonmedicinal substance allergy status
CPT/HCPCS: 82565; 84520; 71270; 36415; Q9967

== ENCOUNTER 2020-11-26 15:35 | Observation (INO) | payer OTHER ==
[2020-11-26] MEDS ORDERED: ONDANSETRON 4 MG/2 ML VIAL IVP STA (15:53)
[2020-11-26] MEDS ORDERED: ACETAMINOPHEN TAB 500 MG TAB PO STA (15:53)
[2020-11-26] MEDS ORDERED: IPRATROPIUM-ALBUTEROL 3 ML NEB INHALATION STA (15:53)
[2020-11-26 16:35] LABS: ALT 10 U/L (4-34); AST 18 U/L (14-36); African American GFR (CKD) >90 (>60 ml/min/1.73 sqM); Albumin 3.5 g/dL (3.5-5.0); Alkaline Phosphatase 95 U/L (38-126); Anion Gap 11 mmol/L; Blood Urea Nitrogen 8 mg/dL (7-17); Calcium 8.9 mg/dL (8.4-10.2); Carbon Dioxide 21 mmol/L (22-30); Chloride 100 mmol/L (98-107); Glucose 120 mg/dL (74-99); Lipase 14 U/L (23-300); Non-African American GFR(CKD) >90 (>60 ml/min/1.73 sqM); Potassium 3.2 mmol/L (3.5-5.1); Sodium 132 mmol/L (137-145); Total Bilirubin 0.4 mg/dL (0.2-1.3)
[2020-11-26 16:44] LABS: Appearance,Urine Cloudy (Clear); Bilirubin,Urine 1+ (Negative); Blood,Urine Negative (Negative); Color,Urine Yellow; Glucose,Urine (UA) Negative (Negative); Ketones,Urine 1+ (Negative); Leukocyte Esterase,Urine Negative (Negative); Mucus,Urine Few /hpf; Nitrite,Urine Negative (Negative); PH, Urine 6.5 (5.0-8.0); Protein,Urine 1+ (Negative); RBC,Urine 1 /hpf (0-5); Specific Gravity,Urine 1.026 (1.001-1.035); Squamous Epithelial Cell,Urine 4 /hpf (0-4); WBC,Urine 2 /hpf (0-5)
--- NOTE | 2020-11-26 16:47 | XR ---
EXAMINATION TYPE: XR chest 2V DATE OF EXAM: 11/26/2020 COMPARISON: 05/26/2018 HISTORY: Right leg swelling TECHNIQUE: 2 views FINDINGS: There is a 10 cm wedge-shaped infiltrate in the left lower lobe posteriorly. The other lung bolanos are clear. There are no hilar masses. Bony thorax is intact. Heart and mediastinum appear nor mal. IMPRESSION: There is left lower lobe pneumonia which is new compared to old exam.
[2020-11-26 16:49] LABS: Basophils # (A) 0.1 k/uL (0-0.2); Basophils % (A) 0 %; Eosinophils # (A) 0.2 k/uL (0-0.7); Eosinophils % (A) 1 %; HCT 41.5 % (34.0-46.0); HGB 14.2 gm/dL (11.4-16.0); Lymphocytes # (A) 1.2 k/uL (1.0-4.8); Lymphocytes % (A) 8 %; MCH 27.7 pg (25.0-35.0); MCHC 34.2 g/dL (31.0-37.0); MCV 81.2 fL (80.0-100.0); Monocytes # (A) 0.9 k/uL (0-1.0); Monocytes % (A) 6 %; Neutrophils # (A) 13.6 k/uL (1.3-7.7); Neutrophils % (A) 84 %; Platelet Count 280 k/uL (150-450); RBC 5.11 m/uL (3.80-5.40); RDW 14.6 % (11.5-15.5); WBC 16.1 k/uL (3.8-10.6)
[2020-11-26] MEDS ORDERED: POTASSIUM CHLORIDE ER 20 MEQ TAB.ER PO STA (17:03)
[2020-11-26] MEDS ORDERED: SODIUM CHLORIDE 0.9% 1,000 ML IV ONE (17:03)
[2020-11-26] MEDS ORDERED: AZITHROMYCIN 500 MG in SODIUM CHLORIDE 0.9% 250 ML IVPB STA (17:04)
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
[2020-11-26] MEDS ORDERED: PNEUMONIA PROTOCOL UTILIZED 1 EACH MISC PO PRN (17:05)
[2020-11-26] MEDS: SODIUM CHLORIDE 0.9% 1,000 ML IV SCH (17:09)
[2020-11-26] MEDS ORDERED: IPRATROPIUM-ALBUTEROL 3 ML NEB INHALATION SCH (20:00)
[2020-11-26] MEDS ORDERED: ALBUTEROL NEBULIZED 2.5 MG/3 ML INHALATION PRN (22:26)
[2020-11-26] MEDS ORDERED: TEMAZEPAM 7.5 MG CAP PO PRN (22:26)
[2020-11-26] MEDS ORDERED: IBUPROFEN 400 MG TAB PO PRN (22:26)
[2020-11-26] MEDS ORDERED: GABAPENTIN 300 MG CAP PO SCH (22:30)
[2020-11-26] MEDS: guaiFENesin 600 MG TABLET.ER PO PRN (23:20)
[2020-11-26] MEDS: hydrOXYzine pamoate 25 MG CAP PO SCH (23:20)
[2020-11-26] MEDS: TOPIRAMATE 100 MG TAB PO SCH (23:20)
[2020-11-26] MEDS: GABAPENTIN 300 MG CAP PO SCH (23:20)
[2020-11-26] MEDS: ATORVASTATIN 80 MG TAB PO SCH (23:20)
[2020-11-26] MEDS: BACLOFEN 10 MG TAB PO PRN (23:21)
[2020-11-26] MEDS: MONTELUKAST 10 MG TAB PO SCH (23:21)
[2020-11-26] MEDS: metFORMIN 500 MG TAB PO SCH (23:21)
[2020-11-26] MEDS: ACETAMINOPHEN TAB 500 MG TAB PO PRN (23:21)
[2020-11-27] MEDS: SODIUM CHLORIDE 0.9% 1,000 ML IV SCH ×4 (01:38→23:56)
[2020-11-27] MEDS: ACETAMINOPHEN TAB 500 MG TAB PO PRN ×2 (06:10→14:31)
[2020-11-27] MEDS: FLUTICASONE 220 MCG INHALER INHALATION SCH ×2 (07:47→20:39)
[2020-11-27] MEDS: IPRATROPIUM-ALBUTEROL 3 ML NEB INHALATION SCH ×4 (07:47→20:38)
--- NOTE | 2020-11-27 08:36 | XR ---
EXAMINATION TYPE: XR chest 2V DATE OF EXAM: 11/27/2020 COMPARISON: Chest x-ray 11/26/2020 HISTORY: Pneumonia TECHNIQUE: Frontal and lateral views of the chest are obtained. FINDINGS: There is abnormal increased retrocardiac density noted more confluent than on prior exam. No evident pneumothorax. Cardiac mediastinal silhouette is stable. No definite effusion. IMPRESSION: Left lower lobe pneumonia.
[2020-11-27] MEDS: PANTOPRAZOLE 40 MG TABLET PO SCH ×2 (09:35→19:55)
[2020-11-27] MEDS: VORTIOXETINE HYDROBROMIDE 20 MG TABLET PO SCH (09:35)
[2020-11-27] MEDS: PALIPERIDONE 6 MG TAB.ER.24 PO SCH (09:35)
[2020-11-27] MEDS: metFORMIN 500 MG TAB PO SCH ×2 (09:35→19:55)
[2020-11-27] MEDS: hydrOXYzine pamoate 25 MG CAP PO SCH ×4 (09:35→23:08)
[2020-11-27] MEDS ORDERED: SODIUM CHLORIDE 0.9% 1,000 ML IV ONE (09:36)
[2020-11-27] MEDS: TOPIRAMATE 100 MG TAB PO SCH ×2 (09:36→19:56)
[2020-11-27] MEDS: AZITHROMYCIN 500 MG in SODIUM CHLORIDE 0.9% 250 ML IVPB SCH (09:36)
[2020-11-27] MEDS: GABAPENTIN 300 MG CAP PO SCH ×2 (09:37→19:55)
[2020-11-27 10:26] LABS: African American GFR (CKD) >90 (>60 ml/min/1.73 sqM); Anion Gap 5 mmol/L; Blood Urea Nitrogen 7 mg/dL (7-17); Calcium 7.9 mg/dL (8.4-10.2); Carbon Dioxide 21 mmol/L (22-30); Chloride 109 mmol/L (98-107); Glucose 105 mg/dL (74-99); Non-African American GFR(CKD) >90 (>60 ml/min/1.73 sqM); Sodium 135 mmol/L (137-145)
[2020-11-27] MEDS ORDERED: Potassium Replacement Protocol 1 EACH MISC MISCELLANE PRN ×2 (10:32→10:49)
[2020-11-27] MEDS ORDERED: Magnesium Replacement Protocol 1 EACH MISC MISCELLANE PRN ×2 (10:35→11:37)
[2020-11-27] MEDS: guaiFENesin 600 MG TABLET.ER PO PRN (10:44)
[2020-11-27] MEDS: POTASSIUM CHLORIDE ER 20 MEQ TAB.ER PO SCH ×2 (11:38→13:02)
[2020-11-27 11:39] LABS: Glucose,Whole Blood 90 mg/dL (75-99)
[2020-11-27] MEDS: MAGNESIUM SULFATE-D5W PMX 1 GM in DEXTROSE/WATER 1 100ML.BAG IVPB SCH ×2 (12:05→13:07)
[2020-11-27] MEDS ORDERED: INSULIN ASPART (NovoLOG) 100 UNIT/ML VIAL SQ SCH (12:30)
[2020-11-27] MEDS ORDERED: IPRATROPIUM-ALBUTEROL 3 ML NEB INHALATION PRN (14:10)
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
[2020-11-27] MEDS: methylPREDNISolone SOD SUCCI 125 MG/2 ML VIAL IV SCH ×3 (14:31→23:21)
[2020-11-27 17:07] LABS: Glucose,Whole Blood 136 mg/dL (75-99)
[2020-11-27] MEDS: INSULIN ASPART (NovoLOG) 100 UNIT/ML VIAL SQ SCH ×2 (17:48→19:47)
[2020-11-27] MEDS: ATORVASTATIN 80 MG TAB PO SCH (19:55)
[2020-11-27] MEDS: MONTELUKAST 10 MG TAB PO SCH (19:56)
[2020-11-27 20:57] LABS: Glucose,Whole Blood 188 mg/dL (75-99)
[2020-11-28 01:34] VITALS: RESP 16
[2020-11-28] MEDS: methylPREDNISolone SOD SUCCI 125 MG/2 ML VIAL IV SCH (04:56)
[2020-11-28 07:03] LABS: Glucose,Whole Blood 158 mg/dL (75-99)
[2020-11-28] MEDS: FLUTICASONE 220 MCG INHALER INHALATION SCH (07:27)
[2020-11-28] MEDS: IPRATROPIUM-ALBUTEROL 3 ML NEB INHALATION SCH ×2 (07:27→11:01)
[2020-11-28 07:36] VITALS: BP 119/76; TEMP 98
[2020-11-28] MEDS: INSULIN ASPART (NovoLOG) 100 UNIT/ML VIAL SQ SCH ×2 (08:11→12:25)
[2020-11-28] MEDS: GABAPENTIN 300 MG CAP PO SCH (08:13)
[2020-11-28] MEDS: hydrOXYzine pamoate 25 MG CAP PO SCH ×2 (08:14→13:56)
[2020-11-28] MEDS: metFORMIN 500 MG TAB PO SCH (08:15)
[2020-11-28] MEDS: TOPIRAMATE 100 MG TAB PO SCH (08:16)
[2020-11-28] MEDS: PALIPERIDONE 6 MG TAB.ER.24 PO SCH (08:16)
[2020-11-28] MEDS: PANTOPRAZOLE 40 MG TABLET PO SCH (08:16)
[2020-11-28] MEDS: VORTIOXETINE HYDROBROMIDE 20 MG TABLET PO SCH (08:16)
[2020-11-28] MEDS: BACLOFEN 10 MG TAB PO PRN (08:50)
[2020-11-28 09:12] LABS: Basophils # (A) 0.01 X 10*3/uL (0.00-0.10); Basophils % (A) 0.1 %; Eosinophils # (A) 0 X 10*3/uL (0.04-0.35); Eosinophils % (A) 0 %; HCT 35.3 % (37.2-46.3); HGB 11.6 g/dL (12.0-15.0); Lymphocytes # (A) 0.77 X 10*3/uL (0.90-5.00); Lymphocytes % (A) 8.1 %; MCHC 32.9 g/dL (32.0-37.0); MCV 82.1 fL (80.0-97.0); Mean Platelet Volume 10.8 fL (9.5-12.2); Monocytes # (A) 0.33 X 10*3/uL (0.20-1.00); Monocytes % (A) 3.5 %; Neutrophils # (A) 8.26 X 10*3/uL (1.80-7.70); Neutrophils % (A) 86.5 %; Platelet Count 240 X 10*3/uL (140-440); RDW 15.8 % (11.5-14.5); WBC 9.54 X 10*3/uL (4.50-10.00)
[2020-11-28] MEDS: SODIUM CHLORIDE 0.9% 1,000 ML IV SCH (09:52)
[2020-11-28] MEDS: AZITHROMYCIN 500 MG in SODIUM CHLORIDE 0.9% 250 ML IVPB SCH (09:52)
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
[2020-11-28 10:28] LABS: African American GFR (CKD) 136.4 (60.0-200.0); Anion Gap 9.7 mmol/L (4.00-12.00); Carbon Dioxide 16.3 mmol/L (21.6-31.8); Magnesium 1.9 mg/dL (1.5-2.4); Non-African American GFR(CKD) 117.7 (60.0-200.0); Potassium 3.7 mmol/L (3.5-5.5)
--- NOTE | 2020-11-28 11:10 | P.PN ---
Subjective Progress Note Date: 11/28/20 This is a 45-year-old female with known medical history of asthma, COPD, obstructive sleep apnea-on CPAP, nicotine dependence and multiple other medical issues presented to the ER with complaints of worsening shortness of breath, cough mostly non-productive , occasionally with clear sputum, congestion, fevers ,poor appetite, nausea, vomiting, diarrhea since last week.She does not use any home oxygen.T-max 102.6, WBC 16.Chest x-ray reporting new left lower lobe pneumonia.Coronavirus not detected. Sodium 132 on admission and currently up to 135. Potassium 3.2, continued to worsen and currently at 3. Renal function stable. Tachycardia, initially with heart rates up to 1:15, maintaining O2 sats in the low 90s on room air. Respiratory rate 20. IV antibiotics and steroids. 11/28/2020 Maintained on IV antibiotics, nebulized bronchodilators, steroids .significant clinical improvement. Afebrile, WBC within normal limits. Preliminary blood cultures reported no growth at 24 hours. Tachycardia r esolved. Electrolytes normalized. Maintaining O2 sats in the high 90s on room air. Evaluated by pulmonary with recommendations noted and appreciated. Objective - Vital Signs Vital signs: Vital Signs Temp 98.0 F 11/28/20 07:00 Pulse 80 11/28/20 07:28 Resp 16 11/28/20 07:00 BP 119/76 11/28/20 07:00 Pulse Ox 96 11/28/20 07:00 Intake & Output 11/27/20 11/28/20 11/28/20 18:59 06:59 18:59 Intake Total 1100 360 Balance 1100 360 Intake: Intake, IV Titration 1100 360 Amount Magnesium Sulfate-D5w Pmx 100 1 gm In Dextrose/Water 1 100ml.bag @ 100 mls/hr IVPB Q1H [facility] Rx#: [id number] Sodium Chloride 0.9% 1, 360 000 ml @ 130 mls/hr IV . Q7H42M [facility] Rx#:[id number] Sodium Chloride 0.9% 1, 1000 000 ml @ 999 mls/hr IV . Q1H1M [facility] Rx#:[id number] Other: Voiding Method Toilet Toilet # Voids 1 - Exam PHYSICAL EXAM: VITAL SIGNS: As above GENERAL: Alert and oriented 3, Morbidly obese, sitting up in bed, no acute distress HEENT: Conjunctivae normal. eyes normal. Oral mucosa moist CARDIOVASCULAR: S1, S2 regular.No murmur RESPIRATION: Breath sounds diminished in the bases. Left basilar Expiratory wheezing. Loose congested nonproductive cough. ABDOMEN: Soft, nontender . No guarding. no masses palpable. No ascites, No hepatosplenomegaly.Bowel sounds heard. LEGS: Trace edema. Pedal pulses palpable. NERVOUS SYSTEM: Cranial N 2-12 grossly normal. Moves all 4 limbs. No focal deficits. Strength and sensation grossly intact. Skin: Warm and dry, no rash - Labs CBC & Chem 7: 11/28/20 05:57 11/28/20 05:57 Labs: Abnormal Lab Results - Last 24 Hours (Table) 11/27/20 11/27/20 11/28/20 Range/Units 17:05 20:55 05:57 Hgb 11.6 L (12.0-15.0) g/dL Hct 35.3 L (37.2-46.3) % RDW 15.8 H (11.5-14.5) % Immature Gran # 0.17 H (0.00-0.04) X 10*3/uL Neutrophils # 8.26 H (1.80-7.70) X 10*3/uL Lymphocytes # 0.77 L (0.90-5.00) X 10*3/uL Eosinophils # 0 L (0.04-0.35) X 10*3/uL Chloride (96-109) mmol/L Carbon Dioxide (21.6-31.8) mmol/L BUN (9.0-27.0) mg/dL Creatinine (0.6-1.5) mg/dL Glucose (70-110) mg/dL POC Glucose (mg/dL) 136 H 188 H (75-99) mg/dL Calcium (8.7-10.3) mg/dL 11/28/20 11/28/20 Range/Units 05:57 07:01 Hgb (12.0-15.0) g/dL Hct (37.2-46.3) % RDW (11.5-14.5) % Immature Gran # (0.00-0.04) X 10*3/uL Neutrophils # (1.80-7.70) X 10*3/uL Lymphocytes # (0.90-5.00) X 10*3/uL Eosinophils # (0.04-0.35) X 10*3/uL Chloride 111 H (96-109) mmol/L Carbon Dioxide 16.3 L (21.6-31.8) mmol/L BUN 7.0 L (9.0-27.0) mg/dL Creatinine 0.5 L (0.6-1.5) mg/dL Glucose 156 H (70-110) mg/dL POC Glucose (mg/dL) 158 H (75-99) mg/dL Calcium 8.0 L (8.7-10.3) mg/dL Microbiology - Last 24 Hours (Table) 11/27/20 06:44 Blood Culture - Preliminary Blood No Growth after 24 hours 11/26/20 16:09 Blood Culture - Preliminary Blood No Growth after 24 hours 11/26/20 16:09 Blood Culture - Preliminary Blood No Growth after 24 hours Assessment and Plan Assessment: Final Diagnoses: -Sepsis, present on admission secondary to Acute hypoxic respiratory failure related to left lower lobe pneumonia, community-acquired -Possible underlying Acute COPD exacerbation -Possible underlying Acute on Chronic moderate persistent asthma -Hyponatremia, resolved -Hypokalemia, resolved -Hypomagnesemia, resolved -Diarrhea, prior to admission -Obstructive sleep apnea on CPAP -Type 2 diabetes mellitus -Fibromyalgia -Gastroesophageal reflux disease -Hyperlipidemia -Morbid obesity, BMI 35.4 -Major depression history, history of PTSD -Nicotine dependence -Chronic pain syndrome Plan: Continue current medication regime ,monitoring and symptomatic treatment. Maintain IV antibiotics of azithromycin and Rocephin, nebulized bronchodilators, steroids. IV Steroid tapering in progress. Smoking cessation re-enforced. D ischarge planning in progress for tomorrow pending pulmonary clearance. The impression and plan of care has been dictated as directed. : I performed a history and examination of this patient, discussed the same with the dictator. I agree with the dictator's note ,documented as a scribe. Any additional findings or plans will be noted.
[2020-11-28 11:15] VITALS: PULSE 79
[2020-11-28 11:47] LABS: Glucose,Whole Blood 220 mg/dL (75-99)
[2020-11-28] MEDS ORDERED: PIPERACILLIN-TAZOBACTAM 3.375 GM in SODIUM CHLORIDE 0.9% 100 ML IVPB SCH (12:38)
--- NOTE | 2020-11-28 14:58 | P.DS ---
Providers Date of admission: 11/26/20 17:57 Expected date of discharge: 11/28/20 Attending physician: Tacho Null Consults: 11/27/20 13:37 Consult Physician Routine Consulting Provider: Wei Duvall Consult Reason/Comments: Left lower lobe pneumonia, hypoxia Do you want consulting provider notified?: Yes Primary care physician: [facility] Course: Final Diagnoses: -Sepsis, present on admission secondary to Acute hypoxic respiratory failure related to left lower lobe pneumonia, community-acquired -Possible underlying Acute COPD exacerbation -Possible underlying Acute on Chronic moderate persistent asthma -Hyponatremia, resolved -Hypokalemia, resolved -Hypomagnesemia, resolved -Diarrhea, prior to admission -Obstructive sleep apnea on CPAP -Type 2 diabetes mellitus -Fibromyalgia -Gastroesophageal reflux disease -Hyperlipidemia -Morbid obesity, BMI 35.4 -Major depression history, history of PTSD -Nicotine dependence -Chronic pain syndrome Hospital course:This is a 45-year-old female with known medical history of asthma, COPD, obstructive sleep apnea-on CPAP, nicotine dependence and multiple other medical issues presented to the ER with complaints of worsening shortness of breath, cough mostly non-productive , occasionally with clear sputum, congestion, fevers ,poor appetite, nausea, vomiting, diarrhea since last week.She does not use any home oxygen.T-max 102.6, WBC 16.Chest x-ray reporting new left lower lobe pneumonia.Coronavirus not detected. Sodium 132 on admission and currently up to 135. Potassium 3.2, continued to worsen and currently at 3. Renal function stable. Tachycardia, initially with heart rates up to 1:15, maintaining O2 sats in the low 90s on room air. Respiratory rate 20. IV antibiotics and steroids. 11/28/2020 Maintained on IV antibiotics, nebulized bronchodilators, steroids .significant clinical improvement. Afebrile, WBC within normal limits. Preliminary blood cultures reported no growth at 24 hours. Tachycardia resolved. Electrolytes normalized. Maintaining O2 sats in the high 90s on room air. Evaluated by pulmonary with recommendations noted and appreciated. Significant clinical improvement. Patient eager for discharge. Patient will be discharged home today in a stable condition with guarded prognosis. Smoking cessation reinforced. The impression and plan of care has been dictated as directed. : I performed a history and examination of this patient, discussed the same with the dictator. I agree with the dictator's note ,documented as a scribe. Any additional findings or plans will be noted. Patient Condition at Discharge: Stable Plan - Discharge Summary New Discharge Prescriptions: New Levofloxacin [Levaquin] 500 mg PO DAILY 5 Days #5 tab guaiFENesin [Mucinex] 600 mg PO Q12HR PRN tablet.er PRN Reason: Cough predniSONE 10 mg PO DIRECTED #30 tab Continue Gabapentin [Neurontin] 600 mg PO HS Montelukast Sodium [Singulair] 10 mg PO HS Gabapentin [Neurontin] 300 mg PO DAILY metFORMIN HCL 1,000 mg PO BID Ibuprofen [Motrin] 800 mg PO TID PRN PRN Reason: Pain Paliperidone [Invega] 6 mg PO DAILY Omeprazole [PriLOSEC] 20 mg PO BID Topiramate [Topamax] 100 mg PO BID Salmeterol 50 mcg [Serevent Diskus] 1 puff INHALATION RT-Q12H Ipratropium-Albuterol Nebulize [Duoneb 0.5 mg-3 mg/3 ml Soln] 3 ml INHALATION RT-QID Ergocalciferol (Vitamin D2) [Vitamin D2 (50,000 Iu)] 1,000 mcg PO SIMON hydrOXYzine pamoate [Vistaril] 25 mg PO QID Albuterol Sulfate [Proair Hfa] 2 puff INHALATION RT-QID PRN PRN Reason: Shortness Of Breath Medroxyprogesterone Acetate [Depo-Provera] 150 mg IM Q90D Vortioxetine Hydrobromide [Trintellix] 20 mg PO DAILY Atorvastatin [Lipitor] 80 mg PO HS Baclofen 10 mg PO BID PRN PRN Reason: Pain Eszopiclone [Lunesta] 1 mg PO HS PRN PRN Reason: Insomnia Fluticasone Propionate [Flovent Hfa 220 mcg] 2 puff INHALATION RT-BID Discharge Medication List Gabapentin [Neurontin] 300 mg PO DAILY 02/20/19 [History] Gabapentin [Neurontin] 600 mg PO HS 02/20/19 [History] Ibuprofen [Motrin] 800 mg PO TID PRN 02/20/19 [History] Montelukast Sodium [Singulair] 10 mg PO HS 02/20/19 [History] Paliperidone [Invega] 6 mg PO DAILY 02/20/19 [History] metFORMIN HCL 1,000 mg PO BID 02/20/19 [History] Ergocalciferol (Vitamin D2) [Vitamin D2 (50,000 Iu)] 1,000 mcg PO SIMON 01/25/20 [History] Ipratropium-Albuterol Nebulize [Duoneb 0.5 mg-3 mg/3 ml Soln] 3 ml INHALATION RT-QID 01/25/20 [History] Omeprazole [PriLOSEC] 20 mg PO BID 01/25/20 [History] Salmeterol 50 mcg [Serevent Diskus] 1 puff INHALATION RT-Q12H 01/25/20 [History] Topiramate [Topamax] 100 mg PO BID 01/25/20 [History] hydrOXYzine pamoate [Vistaril] 25 mg PO QID 01/25/20 [History] Albuterol Sulfate [Proair Hfa] 2 puff INHALATION RT-QID PRN 11/26/20 [History] Atorvastatin [Lipitor] 80 mg PO HS 11/26/20 [History] Baclofen 10 mg PO BID PRN 11/26/20 [History] Eszopiclone [Lunesta] 1 mg PO HS PRN 11/26/20 [History] Fluticasone Propionate [Flovent Hfa 220 mcg] 2 puff INHALATION RT-BID 11/26/20 [History] Medroxyprogesterone Acetate [Depo-Provera] 150 mg IM Q90D 11/26/20 [History] Vortioxetine Hydrobromide [Trintellix] 20 mg PO DAILY 11/26/20 [History] Levofloxacin [Levaquin] 500 mg PO DAILY 5 Days #5 tab 11/27/20 [Rx] guaiFENesin [Mucinex] 600 mg PO Q12HR PRN tablet.er 11/27/20 [Rx] predniSONE 10 mg PO DIRECTED #30 tab 11/27/20 [Rx] Follow up Appointment(s)/Referral(s): Tacho Null Jr, DO [Primary Care Provider] - 11/28/20 10:00 am (Appointment scheduled at Dr. Null's office, (patient will see Magdiel), for 11/28/20 at 10:00 AM) Wei Duvall MD [STAFF PHYSICIAN] - 12/05/20 12:30 pm Ambulatory/Diagnostic Orders: Complete Blood Count w/diff [LAB.AMB] Time Frame: 3 Days, Location: None Selected Patient Instructions/Handouts: Viral Pneumonia (DC), How to Stop Smoking (DC), COPD (Chronic Obstructive Pulmonary Disease) (DC) Activity/Diet/Wound Care/Special Instructions: Please give afternoon dose of IV steroids prior to dc. Discharge Disposition: HOME SELF-CARE
[2020-11-28] MEDS ORDERED: methylPREDNISolone SOD SUCCI 40 MG/ML 1 ML VIAL IV SCH (16:00)
[2020-11-28 16:53] LABS: Hemoglobin A1C 5.8 % (4.0-6.0)
[2020-11-30] MEDS ORDERED: ERGOCALCIFEROL 1,250 MCG (50,000 IU) CAPSULE PO SCH (09:00)
== END 2020-11-28 14:32 | disposition home or self-care (01) ==
LOC: EEVIPCON 15:35 → EC 15:35 → 6NMEDSUR 17:57
PROVIDERS: ADMIT Family Medicine; ATTEND Family Medicine
DX: J18.9 Pneumonia, unspecified organism (principal); A41.9 Sepsis, unspecified organism; J96.01 Acute respiratory failure with hypoxia; J44.0 Chronic obstructive pulmonary disease with (acute) lower respiratory infection; Z20.822 Contact with and (suspected) exposure to COVID-19; J44.1 Chronic obstructive pulmonary disease with (acute) exacerbation; E87.1 Hypo-osmolality and hyponatremia; E87.6 Hypokalemia; E83.42 Hypomagnesemia; R19.7 Diarrhea, unspecified; G47.33 Obstructive sleep apnea (adult) (pediatric); E11.9 Type 2 diabetes mellitus without complications; M79.7 Fibromyalgia; K21.9 Gastro-esophageal reflux disease without esophagitis; E78.5 Hyperlipidemia, unspecified; E66.01 Morbid (severe) obesity due to excess calories; Z68.35 Body mass index [BMI] 35.0-35.9, adult; F25.9 Schizoaffective disorder, unspecified; F31.9 Bipolar disorder, unspecified; F43.10 Post-traumatic stress disorder, unspecified; F40.240 Claustrophobia; F17.200 Nicotine dependence, unspecified, uncomplicated; G89.4 Chronic pain syndrome; G40.909 Epilepsy, unspecified, not intractable, without status epilepticus; J45.40 Moderate persistent asthma, uncomplicated; Z79.51 Long term (current) use of inhaled steroids; Z79.52 Long term (current) use of systemic steroids; Z79.84 Long term (current) use of oral hypoglycemic drugs; Z79.899 Other long term (current) drug therapy; Z88.6 Allergy status to analgesic agent; Z88.4 Allergy status to anesthetic agent; Z91.048 Other nonmedicinal substance allergy status; Z88.8 Allergy status to other drugs, medicaments and biological substances; Z88.9 Allergy status to unspecified drugs, medicaments and biological substances; Z88.3 Allergy status to other anti-infective agents; Z91.018 Allergy to other foods; Z90.49 Acquired absence of other specified parts of digestive tract; Z90.710 Acquired absence of both cervix and uterus; Z87.42 Personal history of other diseases of the female genital tract; Z85.41 Personal history of malignant neoplasm of cervix uteri; Z80.41 Family history of malignant neoplasm of ovary; Z82.49 Family history of ischemic heart disease and other diseases of the circulatory system; Z83.3 Family history of diabetes mellitus; Z83.2 Family history of diseases of the blood and blood-forming organs and certain disorders involving the immune mechanism
CPT/HCPCS: 96376 ×2; 96361 ×2; 96366 ×2; 96367 ×2; 96375 ×2; 96368; 96365; 99285; 36415; 94640 ×6; 94760; 80053; 80048 ×2; 83605 ×2; 83690; 83735 ×2; 85025 ×2; 81001; 87040 ×2; 83036; 87635; 71046 ×2; G0378 ×3; J2920; J2930 ×2; J2405; J0456 ×3; J0696 ×3; J3475

== ENCOUNTER → 2021-03-23 | Outpatient (CLI) | payer OTHER | END | disposition home or self-care (01) | LOC: LABWHC1 14:48 | PROVIDERS: ATTEND Nurse Practitioner Family | DX: Z01.818 Encounter for other preprocedural examination (principal); R00.1 Bradycardia, unspecified | CPT/HCPCS: 36415; 93005 ==

== ENCOUNTER → 2021-06-03 | Outpatient (CLI) | payer OTHER ==
--- NOTE | 2021-06-04 06:34 | SFUN ---
SLEEP CENTER FOLLOW UP NOTE DATE OF SERVICE: 06/03/2021 46-year-old lady has been followed in Sleep Center for treatment of obstructive sleep apnea-hypopnea syndrome. The patient continues to use her CPAP equipment every night. [place] Sleepiness Scale today increased to 14. I checked her CPAP unit, pressure is 13 cm of water. Usage is 100% of nights more than 4 hours, average 8.1 hours per night. No periodic breathing. Apnea-hypopnea index is 1.2 which is in normal range. CURRENT MEDICATIONS: Lyrica twice a day, ibuprofen 800 mg 3 times a day, Lipitor 80 mg once a day, metformin was 1000 mg twice a day, Prilosec 20 mg twice a day, Advair 1 puff twice a day, Singulair 10 mg once a day, topiramate 100 mg twice a day. PHYSICAL EXAMINATION: GENERAL: Patient in no distress. BP 105/71, HR 64, RR 15, height 5 feet 4 inches, weight 230.3 with body mass index 39.4, temperature 97.4, oxygen saturation at room air 97%. Oropharynx: Low position of soft palate, Mallampati 3. Neck: 15 inches in circumference. Neck: Supple, no JVD. Thyroid is not palpable. LUNGS: Clear to percussion and to auscultation. Good air exchange. No wheezing or rhonchi. HEART: S1, S2 regular. No murmurs, gallops, or rubs. ABDOMEN: Obese. Soft and nontender. Bowel sounds are present. No organomegaly appreciated. EXTREMITIES: No clubbing or cyanosis. MEDICAL RESEARCHER: Awake, alert, and oriented X3. Cranial nerves 2 to 7 intact. There is no fasciculation or atrophy. noted. No focal deficits observed. IMPRESSION: 1. Obstructive sleep apnea-hypopnea syndrome. Patient demonstrated great compliance with treatment. Normal respiration on CPAP. The patient has [employer] unit which was on recall. 2. History of asthma and chronic obstructive pulmonary disease. 3. Obesity. 4. Diabetes mellitus. 5. Acid reflux. 6. History of depression. 7. History of bipolar. 8. History of PTSD. 9. History of fibromyalgia. 10.History of migraine. 11.Status post neck surgery. 12.Status post right knee surgery. 13.Status post cholecystectomy. 14.Status post partial hysterectomy. 15.Status post ankle surgery. PLAN: 1. Patient will continue to use PAP equipment every night for the whole night. 2. Sleep hygiene with regular time in bed for at least 7-1/2 to 8 hours. 3. Precautions related to driving. No driving if feeling sleepiness. 4. I will maintain all necessary prescription for PAP supplies including mask, tube, filters. 5. Watching weight. 6. Follow-up visit in one year or earlier if patient has any problems. Thank you very much for allowing me to participate in the management of your patient. Sincerely, Michael Ruiz MD, PhD, FAASM Diplomat of [place] [employer] Sleep Medicine [employer] of [place] [employer] Director [facility] [employer] MMODL / IJN: [id number] /
== END ==
LOC: SLEEP 13:05
PROVIDERS: ATTEND Internal Medicine
DX: G47.33 Obstructive sleep apnea (adult) (pediatric) (principal); J44.9 Chronic obstructive pulmonary disease, unspecified; E66.9 Obesity, unspecified; E11.9 Type 2 diabetes mellitus without complications; F31.9 Bipolar disorder, unspecified; F43.10 Post-traumatic stress disorder, unspecified; Z86.69 Personal history of other diseases of the nervous system and sense organs; Z87.39 Personal history of other diseases of the musculoskeletal system and connective tissue; Z98.890 Other specified postprocedural states; Z90.49 Acquired absence of other specified parts of digestive tract; Z90.711 Acquired absence of uterus with remaining cervical stump; Z99.89 Dependence on other enabling machines and devices; Z68.39 Body mass index [BMI] 39.0-39.9, adult; Z79.84 Long term (current) use of oral hypoglycemic drugs; Z91.048 Other nonmedicinal substance allergy status; Z88.6 Allergy status to analgesic agent; Z88.3 Allergy status to other anti-infective agents; Z88.8 Allergy status to other drugs, medicaments and biological substances; Z91.018 Allergy to other foods; F17.200 Nicotine dependence, unspecified, uncomplicated

== ENCOUNTER → 2023-09-23 | Outpatient (CLI) | payer OTHER ==
--- NOTE | 2023-09-23 10:42 | XR ---
EXAMINATION TYPE: XR foot complete LT DATE OF EXAM: 09/23/2023 COMPARISON: None HISTORY: Postop TECHNIQUE: Three views are submitted. FINDINGS: Diffuse osteopenia. There is mild to moderate hypertrophic arthropathy first MTP. Postsurgical change involving the tarsal bones. There appears to be fusion of the cuboid bone and portions of the fourth and fifth metatarsals. A bony separation or fragmentation appears chronic along the anterior margin of the distal calcaneus with sclerotic which may be related to prior remote trauma. There is general ized demineralization. Calcaneal spurs are noted. IMPRESSION: 1. Postsurgical changes with no definite acute process.
== END | disposition home or self-care (01) ==
LOC: RADXRMAIN 10:02
PROVIDERS: ATTEND Podiatrist
DX: L97.525 Non-pressure chronic ulcer of other part of left foot with muscle involvement without evidence of necrosis (principal); E11.49 Type 2 diabetes mellitus with other diabetic neurological complication; Z87.891 Personal history of nicotine dependence

== ENCOUNTER → 2023-10-21 | Outpatient (CLI) | payer OTHER ==
--- NOTE | 2023-10-21 14:23 | XR ---
EXAMINATION TYPE: XR foot complete LT DATE OF EXAM: 10/21/2023 COMPARISON: NONE HISTORY: Nonhealing wound 09/23/2023 TECHNIQUE: Three views are submitted. FINDINGS: Diffuse osteopenia. There is mild to moderate hypertrophic arthropathy first MTP. Postsurgical change involving the tarsal bones. There is a incomplete fusion of the bony densities across the orthopedic plate. The plate is slightly offset relative to the anterior margin of the calcaneus but stable. The re appears to be arthropathy of the tarsometatarsal junction. There is generalized demineralization. Calcaneal spurs are noted. No destructive changes. Soft tissue edema greater along the posterior margin of the foot. No diagnostic evidence of osteomyelitis. IMPRESSION: 1. No acute fracture or dislocation. No destructive changes. 2. Postoperative changes.
== END | disposition home or self-care (01) ==
LOC: LABWHC1 13:52
PROVIDERS: ATTEND Podiatrist
DX: Z01.818 Encounter for other preprocedural examination (principal); E11.49 Type 2 diabetes mellitus with other diabetic neurological complication; L97.525 Non-pressure chronic ulcer of other part of left foot with muscle involvement without evidence of necrosis; Z87.891 Personal history of nicotine dependence

== ENCOUNTER 2023-12-07 07:27 | Day surgery (SDC) | payer OTHER ==
[2023-12-02 15:55] VITALS: BMI 30.5
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
[~2023-12-07 07:27] MED LIST changes: +HYDROmorphone 0.5 MG/0.5 ML SYRINGE IVP PRN; -IODINE/POTASS IOD (LUGOLS) BOTTLE TOPICAL ONE; +fentaNYL (PF) 50 MCG/ML 2 ML AMP IV PRN
[2023-12-07 07:59] VITALS: TEMP 97.4
[2023-12-07] MEDS: LACTATED RINGERS 1,000 ML IV SCH (08:10)
[2023-12-07] MEDS: IV FLUID CONTINUATION 1,000 ML IV ONE ×2 (08:11→08:22)
[2023-12-07] MEDS: BUPIVACAINE (PF) 0.5% 30 ML VIAL SQ ONE ×2 (08:13→08:26)
[2023-12-07] MEDS: LIDOCAINE 2% INJ 20 MG/ML SQ ONE ×2 (08:13→08:26)
[2023-12-07] MEDS: ONDANSETRON 4 MG/2 ML VIAL IVP ONE (08:16)
[2023-12-07] MEDS: DEXAMETHASONE SOD PHOSPHATE 4 MG/ML 1 ML VIAL IV ONE (08:17)
[2023-12-07] MEDS ORDERED: MIDAZOLAM 2 MG/2 ML VIAL ONE (08:19)
[2023-12-07] MEDS ORDERED: LIDOCAINE 1% INJ 10MG/ML (20 ML MDV) ONE (08:19)
[2023-12-07] MEDS ORDERED: fentaNYL (PF) 50 MCG/ML 2 ML AMP ONE (08:19)
[2023-12-07] MEDS ORDERED: PROPOFOL 10 MG/ML 20 ML VIAL IV ONE (08:19)
--- NOTE | 2023-12-07 08:51 | P.OP ---
Date of Procedure: 12/07/23 Preoperative Diagnosis: Right carpal tunnel syndrome Postoperative Diagnosis: Right carpal tunnel syndrome Procedure(s) Performed: Right endoscopic carpal tunnel release Anesthesia: MAC Surgeon: Joon Dave Chief Physical Therapist #1: Fabian Harrington Estimated Blood Loss (ml): 0 Pathology: none sent Condition: stable Disposition: PACU Description of Procedure: This is a 48 year old female who presents today for a right endoscopic carpal tunnel release after having failed conservative treatment in the past. Risks and benefits of surgery were discussed with the patient including bleeding, damage to surrounding tissue, infection, need to convert to open procedure, need for further surgery as well as risks of anesthesia including pulmonary embolism and even and the patient wished to proceed with surgical intervention. The patients was seen in the pre-operative area by myself. Consent and H&P were completed and updated. The correct extremity was marked in the pre-operative area by myself and all other questions were answered. Operative Narrative: The patient was brought to the operating room by the department of anesthesia. They remained on the portable stretcher and a rolling hand table was brought to the side of the operative extremity. Pre-operative time out was performed indicating the correct patient, procedure and laterality. All in the room agreed. The patient was then drifted off to sleep by the department of an esthesia. MAC anesthesia was utilized and a 50:50 mixture of 1% Lidocaine and 0.5% bupivacaine was injected into the subcutaneous tissues of the palmar skin, 8ccs total. A nonsterile tourniquet was then applied to the operative extremity and the right upper extremity was then prepped and draped in normal sterile fashion. The operative extremity was the exsanguinated with an esmarch bandage and the tourniquet was inflated to 250mmHg. 15 blade scalpel was utilized to make a transverse incision on the palmar skin just ulnar to the palmaris longus tendon at the level of the distal wrist creas e. Ragnell retractor was then placed radially and blunt dissection was performed to reveal the distal forearm fascia. This was lifted with fine Keon pick ups and Littler tenotomy scissors were then used to open the forearm fascia transversely and a double skin hook was then placed. Hamate finder was placed into the carpal tunnel and then sequential sized dilators were inserted followed by the synovial elevator to separate the flexor tenosynovium from the undersurface of the transverse carpal ligament and a washboard texture was felt. The MicroAire endoscopic carpal tunnel release system gun was the then inserted into the carpal tunnel hugging the deep portion of the transverse carpal ligament in line with the base of the ring finger. Transverse fibers of the ligament were directly visualized. Pressure was applied on the palm to reveal the distal extent of the transverse carpal ligament. The blade was then deployed and the distal half of the transverse carpal ligament was released. The scope was then brought distal again and remaining transverse fibers were incised with the blade. The proximal half of the transverse carpal ligament was then divided and again the scope was advanced distal and remaining transverse fibers were incised with the blade. The radial and ulnar leaflets were directly visualized and mobile consistent with complete release. Tenotomy scissors were then ut ilized to release the remaining distal forearm fascia under direct visualization taking care to preserve the palmar cutaneous branch of the median nerve. Skin closure was performed with interrupted 4-0 Monocryl suture. Sterile dressing was applied consisting adaptic, 4x4s, Webril, and an yosi bandage. Tourniquet was let down and the hand immediately was well perfused. The patient was then woken by the department of anesthesia and transferred to PACU in stable condition. Fabian ALEXANDRA was present for the case in its entirety and assisted in major portions of the case and protection of vital neurovascular structures. Joon Dave D.O. Orthopedic Hand/Upper Extremity Surgeon
[2023-12-07 09:37] VITALS: BP 93/64; PULSE 99; RESP 18
== END 2023-12-07 09:26 | disposition home or self-care (01) ==
LOC: OR 07:27
PROVIDERS: ATTEND Orthopaedic Surgery Hand Surgery
DX: G56.03 Carpal tunnel syndrome, bilateral upper limbs (principal); G56.22 Lesion of ulnar nerve, left upper limb; E78.5 Hyperlipidemia, unspecified; F25.9 Schizoaffective disorder, unspecified; F31.9 Bipolar disorder, unspecified; F41.9 Anxiety disorder, unspecified; F60.3 Borderline personality disorder; G40.909 Epilepsy, unspecified, not intractable, without status epilepticus; K21.9 Gastro-esophageal reflux disease without esophagitis; K58.9 Irritable bowel syndrome, unspecified; M19.90 Unspecified osteoarthritis, unspecified site; M79.7 Fibromyalgia; J44.89 Other specified chronic obstructive pulmonary disease; E11.42 Type 2 diabetes mellitus with diabetic polyneuropathy; G47.33 Obstructive sleep apnea (adult) (pediatric); G43.909 Migraine, unspecified, not intractable, without status migrainosus; F17.210 Nicotine dependence, cigarettes, uncomplicated; F12.90 Cannabis use, unspecified, uncomplicated; Z79.1 Long term (current) use of non-steroidal anti-inflammatories (NSAID); Z85.41 Personal history of malignant neoplasm of cervix uteri; Z90.49 Acquired absence of other specified parts of digestive tract; Z90.710 Acquired absence of both cervix and uterus; Z79.899 Other long term (current) drug therapy; Z98.890 Other specified postprocedural states; Z88.8 Allergy status to other drugs, medicaments and biological substances
CPT/HCPCS: 29848; J2001 ×2; J2250; J1100; J0690; J2405; J3010; J2704; J0665